=== PATIENT | female | born 1945 | race Caucasian/White ===

== ENCOUNTER → 2016-10-25 | Outpatient (CLI) | payer MEDICARE ==
--- NOTE | 2016-10-26 11:24 | PE ---
EXAMINATION TYPE: PET CT fusion skull to thigh DATE OF EXAM: 10/25/2016 COMPARISON: NONE Prior PET/CT: None HISTORY: Lung mass TECHNIQUE: Following the intravenous administration of 14.44 mCi of F-18 FDG, whole body images are performed from the skull base to the midthigh. Images are reviewed on the computer in the coronal, a xial, and sagittal planes. Reconstructed rotating images are created on independent workstation and reviewed on the computer. A localization and attenuation correction CT is performed in conjunction with the PET scan. DLP: 105.54 mGycm SCAN: Initial Blood glucose: 87 mg/dL Average Mediastinum SUV: 1.74 Average Liver SUV: 2.02 FINDINGS: NECK: No abnormal uptake THORAX: The cavitary lesion with air-fluid level on the current PET CT has an SUV value of 0.9. Highe st level of uptake appears to be at the inferior margin of the lesion measuring 1.2. Inflammatory cav itation is favored within the differential. Low metabolic neoplastic process is considered less likel y. No suspicious mediastinal uptake is evident ABDOMEN: No abnormal uptake PELVIS: No abnormal uptake OSSEOUS STRUCTURES: No abnormal uptake LOCALIZATION CT: Cavitary lesion within the left perihilar region is evident. The ascending thoracic aorta at the level the main pulmonary artery is 2.8 cm. The main pulmonary artery bifurcation 2.4 cm. COMPARISON: None IMPRESSION: 1. Cavitary lesion left perihilar region has a maximum SUV value 1.84 more suggestive for an inflamma tory or infectious process. Treatment and monitoring is recommended.
== END | disposition home or self-care (01) ==
LOC: RADPETMAIN 10:38
PROVIDERS: ATTEND Internal Medicine Critical Care Medicine
DX: R91.1 Solitary pulmonary nodule (principal)
CPT/HCPCS: 78815; A9552

== ENCOUNTER → 2017-06-27 | Outpatient (CLI) | payer MEDICARE ==
--- NOTE | 2017-06-29 09:00 | PE ---
EXAMINATION TYPE: PET CT fusion skull to thigh DATE OF EXAM: 06/27/2017 COMPARISON: Prior PET/CT October 25, 2016 HISTORY: Solitary pulmonary nodule TECHNIQUE: Following the intravenous administration of 11.814 mCi of F-18 FDG, whole body images are performed from the skull base to the midthigh. Images are reviewed on the computer in the coronal, axial, and sagittal planes. Reconstructed rotating images are created on independent workstation and reviewed on the computer. A noncontrast CT is performed in conjunction with the PET scan. SCAN: Initial Scan FINDINGS: SKULL BASE AND NECK: No suspicious hypermetabolic uptake is present. CHEST, MEDIASTINUM, AND HILAR REGION: Corresponding to prior cavitary lesion there is now heterogeneo us hypermetabolic lesion that is posterior hyperdensity and more diffuse hypodensity measuring 2.2 x 1.7 cm axial image 69, max SUV is 3.2 on current study. Overall lesion is slightly smaller versus mckenna or. ABDOMEN AND PELVIS: No suspicious hypermetabolic uptake. Diffuse uptake throughout the bowel and blad marco a is present. OSSEOUS STRUCTURES: No suspicious hypermetabolic uptake. OTHER CT: Cholecystectomy clips are redemonstrated. There are additional clips and sutures in the rig ht abdomen redemonstrated. Uterus is surgically absent or markedly atrophic in appearance. Scattered pelvic phleboliths are seen . There is some facet arthropathy lower lumbar levels. IMPRESSION: Cavitary lesion is diminished in size but is now more solid density with increased hyperm etabolic uptake, max SUV is 3.2. Neoplasm at this level does cannot be excluded. Consider bronchoscop y with sampling.
== END | disposition home or self-care (01) ==
LOC: RADPETMAIN 12:28
PROVIDERS: ATTEND Thoracic Surgery (Cardiothoracic Vascular Surgery)
DX: R91.1 Solitary pulmonary nodule (principal)
CPT/HCPCS: 78815; A9552

== ENCOUNTER → 2017-07-03 | Outpatient (CLI) | payer MEDICARE ==
[2017-07-03 12:57] LABS: Appearance,Urine Clear (Clear); Bilirubin,Urine Negative (Negative); Blood,Urine Negative (Negative); Color,Urine Light Yellow; Glucose,Urine (UA) Negative (Negative); Ketones,Urine Negative (Negative); Leukocyte Esterase,Urine Negative (Negative); Nitrite,Urine Negative (Negative); PH, Urine 5.5 (5.0-8.0); Protein,Urine Negative (Negative); Specific Gravity,Urine 1.004 (1.001-1.035); Urobilinogen,Urine <2.0 mg/dL (<2.0)
[2017-07-03 12:58] LABS: Basophils # (A) 0.1 k/uL (0-0.2); Basophils % (A) 1 %; Eosinophils # (A) 0.2 k/uL (0-0.7); Eosinophils % (A) 3 %; HCT 39.6 % (34.0-46.0); HGB 13.2 gm/dL (11.4-16.0); Lymphocytes % (A) 27 %; MCH 30.4 pg (25.0-35.0); MCHC 33.2 g/dL (31.0-37.0); MCV 91.6 fL (80.0-100.0); Mean Platelet Volume 6.7; Monocytes # (A) 0.3 k/uL (0-1.0); Monocytes % (A) 4 %; Neutrophils # (A) 4.6 k/uL (1.3-7.7); Neutrophils % (A) 63 %; Platelet Count 277 k/uL (150-450); RBC 4.32 m/uL (3.80-5.40); WBC 7.3 k/uL (3.8-10.6)
[2017-07-03 13:24] LABS: Anion Gap 11 mmol/L; Blood Urea Nitrogen 17 mg/dL (7-17); Carbon Dioxide 30 mmol/L (22-30); Chloride 100 mmol/L (98-107); Potassium 3.5 mmol/L (3.5-5.1); Sodium 141 mmol/L (137-145)
== END | disposition home or self-care (01) ==
LOC: LABPAT 12:10
PROVIDERS: ATTEND Thoracic Surgery (Cardiothoracic Vascular Surgery)
DX: Z01.812 Encounter for preprocedural laboratory examination (principal); R91.1 Solitary pulmonary nodule
CPT/HCPCS: 36415; 80051; 81003; 82565; 84520; 85025; 86850; 86900; 86901

== ENCOUNTER → 2017-07-08 | Outpatient (CLI) | payer MEDICARE | END | disposition home or self-care (01) | LOC: LABPAT 11:04 | PROVIDERS: ATTEND Thoracic Surgery (Cardiothoracic Vascular Surgery) | DX: Z01.818 Encounter for other preprocedural examination (principal); I10 Essential (primary) hypertension; R94.31 Abnormal electrocardiogram [ECG] [EKG]; I49.8 Other specified cardiac arrhythmias | CPT/HCPCS: 93005 ==

== ENCOUNTER 2017-08-04 06:53 | Emergency (ER) | payer MEDICARE ==
[2017-08-04 06:59] VITALS: TEMP 98.9
[2017-08-04] MEDS ORDERED: DIPH,PERTUS(ACELL)TETVAC-LF 0.5 ML VIAL IM ONE (07:12)
[2017-08-04] MEDS ORDERED: MORPHINE SULFATE/PF 10MG/10ML VL ONE (07:21)
--- NOTE | 2017-08-04 07:32 | ED ---
General Adult HPI - General Chief complaint: Fall Stated complaint: Fall, Head injury Time Seen by Provider: 08/04/17 07:02 Source: patient, EMS, RN notes reviewed, old records reviewed Mode of arrival: EMS Limitations: no limitations - History of Present Illness Initial comments: 71-year-old female presenting status post fall. [facility]. She states she was coming from the bathroom, reached out to lean onto a wheelchair in the wheelchair was not LOC. She fell striking the right side of her head. There was no loss of consciousness. Patient does complain of headache at the site of injury. She is currently on subcutaneous heparin for DVT prophylaxis. Past medical history of end-stage renal disease, and recent lobectomy. Patient denies neck pain. Denies chest pain. Denies worsening dyspnea or abdominal pain. She does have some pain in her left buttock. No upper or lower extremity pain. - Related Data Home Medications Medication Instructions Recorded Confirmed Amitriptyline HCl [Elavil] 25 mg PO HS@209908/04/17 08/04/17 Darbepoetin Javy [Aranesp] 40 mcg SQ TU@0800 08/04/17 08/04/17 Gabapentin [Neurontin] 300 mg PO TID@0600,1400,209908/04/17 08/04/17 Heparin Sodium,Porcine [Heparin 5,000 unit SQ TID@0600,1400,209908/04/17 Sodium] Ipratropium-Albuterol Nebulize 3 ml IH RT-Q1H PRN 08/04/17 08/04/17 [Duoneb 0.5 mg-3 mg/3 ml Soln] Lactose-Reduced Food [Ensure Plus] 1 can PO TID-W/MEALS 08/04/17 08/04/17 Magnesium Hydroxide [Milk of 2,400 mg PO DAILY PRN 08/04/17 08/04/17 Magnesia] Metoprolol Tartrate [Lopressor] 12.5 mg PO BID@0800,2100 08/04/17 08/04/17 Na Phos,M-B/Na Phos,Di-Ba [Fleet 133 ml RECTAL DAILY PRN 08/04/17 08/04/17 Adult] Nystatin 100,000 Unit/ml Susp 5 ml PO QID@00,06,,18 08/04/17 08/04/17 [Mycostatin Oral Susp] Ondansetron [Zofran] 4 mg PO Q8HR PRN 08/04/17 08/04/17 Potassium Chloride [Klor-Con 20] 40 meq PO ONCE 08/04/17 08/04/17 traMADol HCL [Ultram] 50 mg PO BID@0800,2100 08/04/17 08/04/17 Previous Rx's Medication Instructions Recorded ALPRAZolam [Xanax] 0.25 mg PO DAILY PRN #30 tab 07/31/17 Bisacodyl [Dulcolax] 10 mg RECTAL DAILY PRN supp 07/31/17 Ergocalciferol [Vitamin D2 50,000 unit PO Q72H cap 07/31/17 (DRISDOL)] Ipratropium-Albuterol Nebulize 3 ml INHALATION RT-QID ampul.neb 07/31/17 [Duoneb 0.5 mg-3 mg/3 ml Soln] Pantoprazole [Protonix] 40 mg PO AC-BID tablet. 07/31/17 Allergies Allergy/AdvReac Type Severity Reaction Status Date / Time acetaminophen [From Tylenol] AdvReac can't take Verified 08/04/17 07:41 tylenol due to history pregabalin [From Lyrica] AdvReac Unknown Verified 08/04/17 07:41 Review of Systems ROS Statement: Those systems with pertinent positive or pertinent negative responses have been documented in the HPI. ROS Other: All systems not noted in ROS Statement are negative. Past Medical History Past Medical History: COPD, Fibromyalgia, GERD/Reflux, Hypertension, Osteoarthritis (OA), Renal Disease Additional Past Medical History / Comment(s): past hx. liver failure 2006 probably due to viral infection, was living in [facility] @the time-no current problems,neuropathy, osteoporosis, Crohn's, mass lung History of Any Multi-Drug Resistant Organisms: None Reported Past Surgical History: Bowel Resection, Cholecystectomy, Hysterectomy, Orthopedic Surgery Additional Past Surgical History / Comment(s): lymph node removed left side neck , bowel resection x3, left rotator cuff repair Past Anesthesia/Blood Transfusion Reactions: No Reported Reaction Past Psychological History: No Psychological Hx Reported Smoking Status: Former smoker Past Alcohol Use History: None Reported Past Drug Use History: None Reported - Past Family History Brother(s) Family Medical History: Cancer General Exam Limitations: no limitations General appearance: alert, in no apparent distress Head exam: Present: normocephalic. Absent: atraumatic (3 cm laceration, right frontal temporal region, full-thickness with minimal bleeding, no palpable skull deformity) Eye exam: Present: normal appearance, PERRL, EOMI Neck exam: Present: normal inspection, full ROM. Absent: tenderness, meningismus Respiratory exam: Present: normal lung sounds bilaterally, rales. Absent: respiratory distress, wheezes Cardiovascular Exam: Present: regular rate, normal rhythm GI/Abdominal exam: Present: soft. Absent: distended, tenderness Extremities exam: Present: normal inspection, normal capillary refill. Absent: pedal edema Back exam: Present: other (Several sacral decubitus ulcer in various stages feeling, stage stage I, and stage II) Neurological exam: Present: alert, oriented X3, CN II-XII intact. Absent: motor sensory deficit Psychiatric exam: Present: normal affect, normal mood Skin exam: Present: warm, dry, intact. Absent: cyanosis, diaphoretic Course Vital Signs 08/04/17 08/04/17 06:54 08:04 Temperature 98.9 F Pulse Rate 83 66 Respiratory 16 18 Rate Blood Pressure 150/72 140/63 O2 Sat by Pulse 95 93 L Oximetry Procedures - Laceration Laceration #1 Consent Obtained: verbal consent Time Out Performed: Yes Indication: laceration Site: scalp Description: linear, clean Depth: simple, single layer Pre-repair: wound explored, deep structures intact Size of Sutures: other (6 william) Technique: simple, interrupted Patient Tolerated Procedure: well Medical Decision Making - Medical Decision Making 71-year-old female presenting status post mechanical fall with right temporal scalp laceration. This laceration is proximally 3 cm, it is cleansed, and stapled with 6 william. Patient tolerates procedure well. CT is obtained, negative for intracranial hemorrhage or midline shift. CT cervical spine is negative for fracture or subluxation. Patient did have some left buttock pain and x-rays obtained of the pelvis, this is negative for fracture or dislocation. Patient has no pain with internal or external rotation of the lower extremities. She will be [facility] to [facility]. Return with any worsening or changing symptoms. Tetanus is updated. Disposition Clinical Impression: Fall, Scalp laceration, Closed head injury Disposition: HOME SELF-CARE Condition: Fair Instructions: Laceration (ED), Concussion (ED), Staple Care (ED) Referrals: Sandra Winkler MD [Primary Care Provider] - 1-2 days Time of Disposition: 08:26
[2017-08-04] MEDS ORDERED: MORPHINE SULFATE/PF 10MG/10ML VL IM STA (07:45)
--- NOTE | 2017-08-04 08:04 | CT ---
EXAMINATION TYPE: CT brain cspine wo con DATE OF EXAM: 08/04/2017 COMPARISON: 07/18/2017 HISTORY: Fall CT DLP: Brain (926.50) and C-spine (302.50) mGycm Unenhanced CT of the brain was performed. The ventricles, basal cisterns and sulci overlying the cerebral convexities demonstrate mild enlargem ent. There is no evidence for intracranial hemorrhage or sulcal effacement. There is decreased attenuatio n about the periventricular white matter and deep white matter of both cerebral hemispheres, compatib le with chronic small vessel ischemia. No mass effects are seen. If symptoms persist consider MRI. Osseous calvarium is intact. IMPRESSION: 1. Age related atrophic and chronic small vessel ischemic change without acute intracranial process seen at this time. CT Cervical Spine: Unenhanced CT of the cervical spine was performed with bone and soft tissue window settings submitted . Coronal and sagittal reconstruction is obtained. There is normal alignment and prevertebral soft tissues. No evidence for acute cervical fracture . Scattered degenerative disc disease and spondylosis. Biapical scarring. IMPRESSION: 1. No evidence for acute fracture or subluxation of the cervical spine.
[2017-08-04 08:05] VITALS: RESP 18
--- NOTE | 2017-08-04 08:40 | XR ---
AP pelvis HISTORY: Trauma and pain Single frontal view of the pelvis Abdomen pelvis CT 07/11/2017 Bone mineralization is reduced. Joint spaces and alignment are maintained. Calcific density superimpo sed over the right femoral head is likely due to injection granuloma in the gluteal region. Surgical clips are present in the right hemiabdomen. Degenerative disc changes are present at the lumbosacral junction. There are phleboliths in the pelvis. IMPRESSION: No acute fracture or dislocation.
[2017-08-04 09:54] VITALS: BP 120/58; PULSE 88
== END 2017-08-04 09:52 | disposition home or self-care (01) ==
LOC: EC 06:53
DX: S01.01XA Laceration without foreign body of scalp, initial encounter (principal); M79.7 Fibromyalgia; I12.0 Hypertensive chronic kidney disease with stage 5 chronic kidney disease or end stage renal disease; N18.6 End stage renal disease; M19.90 Unspecified osteoarthritis, unspecified site; Z86.718 Personal history of other venous thrombosis and embolism; Z87.891 Personal history of nicotine dependence; Z79.01 Long term (current) use of anticoagulants; Z79.899 Other long term (current) drug therapy; Z88.6 Allergy status to analgesic agent; Z88.8 Allergy status to other drugs, medicaments and biological substances; Z23 Encounter for immunization; W01.198A Fall on same level from slipping, tripping and stumbling with subsequent striking against other object, initial encounter; Y92.129 Unspecified place in nursing home as the place of occurrence of the external cause
CPT/HCPCS: 72170; 72125; 70450; 90715; 99285; 12002; 96372; 90471; J2270

== ENCOUNTER 2017-08-12 08:51 | Inpatient (IN) | payer MEDICARE ==
[2017-08-12] MEDS ORDERED: SODIUM CHLORIDE 0.9% 1,000 ML IV STA (09:03)
[2017-08-12] MEDS ORDERED: methylPREDNISolone SOD SUCCI 125 MG/2 ML VIAL IV STA (09:03)
[2017-08-12] MEDS ORDERED: ALBUTEROL NEBULIZED 2.5 MG/3 ML INHALATION STA (09:03)
[2017-08-12] MEDS ORDERED: IPRATROPIUM 0.5 MG/2.5 ML NEBU INHALATION STA (09:03)
[2017-08-12] MEDS ORDERED: PIPERACILLIN-TAZOBACTAM 3.375 GM in DEXTROSE/WATER 1 50ML.BAG IVPB STA (09:03)
[2017-08-12 09:33] LABS: Basophils % (A) 1 %; Eosinophils # (A) 0.2 k/uL (0-0.7); Eosinophils % (A) 4 %; HCT 27.3 % (34.0-46.0); HGB 8.2 gm/dL (11.4-16.0); Hypochromasia Moderate; Lymphocytes # (A) 0.9 k/uL (1.0-4.8); Lymphocytes % (A) 17 %; MCH 28.7 pg (25.0-35.0); MCHC 30.2 g/dL (31.0-37.0); MCV 94.9 fL (80.0-100.0); Mean Platelet Volume 7.1; Monocytes # (A) 0.3 k/uL (0-1.0); Monocytes % (A) 6 %; Neutrophils # (A) 3.7 k/uL (1.3-7.7); Neutrophils % (A) 69 %; Platelet Count 243 k/uL (150-450); RBC 2.87 m/uL (3.80-5.40); RDW 14.2 % (11.5-15.5); WBC 5.3 k/uL (3.8-10.6)
[2017-08-12 09:36] LABS: Albumin 2.9 g/dL (3.5-5.0); Calcium 8.5 mg/dL (8.4-10.2); Potassium 4.2 mmol/L (3.5-5.1); Total Bilirubin 0.3 mg/dL (0.2-1.3); Total Protein 5.8 g/dL (6.3-8.2)
--- NOTE | 2017-08-12 09:49 | ED ---
SOB HPI - General Chief Complaint: Shortness of Breath Stated Complaint: Chest pain Time Seen by Provider: 08/12/17 08:58 Source: patient, EMS Mode of arrival: EMS Limitations: no limitations - History of Present Illness Initial Comments: 71 [facility] comes in with a shortness of breath her O2 sat at [facility] was in mid 70s with the oxygen and been up she has a history of congestive heart failure COPD renal failure and Crohn's disease she has a history of lung mass for which she had a surgery done on her lung she denies any chest pain at this point only hurts when she takes a deep breath but then you know she had the surgery done is walk him a no abdominal pain no frequency urgency dysuria no symptoms of TIA or CVA - Related Data Home Medications Medication Instructions Recorded Confirmed Amitriptyline HCl [Elavil] 25 mg PO HS@209908/04/17 08/12/17 Darbepoetin Javy [Aranesp] 40 mcg SQ TU@0800 08/04/17 08/12/17 Gabapentin [Neurontin] 300 mg PO TID@0600,1400,209908/04/17 08/12/17 Heparin Sodium,Porcine [Heparin 5,000 unit SQ TID@0600,1400,209908/04/17 Sodium] Ipratropium-Albuterol Nebulize 3 ml IH RT-Q1H PRN 08/04/17 08/12/17 [Duoneb 0.5 mg-3 mg/3 ml Soln] Magnesium Hydroxide [Milk of 2,400 mg PO DAILY PRN 08/04/17 08/12/17 Magnesia] Metoprolol Tartrate [Lopressor] 12.5 mg PO BID@0800,209908/04/17 08/12/17 Na Phos,M-B/Na Phos,Di-Ba [Fleet 133 ml RECTAL DAILY PRN 08/04/17 08/12/17 Adult] Nystatin 100,000 Unit/ml Susp 5 ml PO QID@00,06,12,18 08/04/17 08/12/17 [Mycostatin Oral Susp] Ondansetron [Zofran] 4 mg PO Q8HR PRN 08/04/17 08/12/17 Potassium Chloride [Klor-Con 20] 40 meq PO DAILY@1700 08/04/17 08/12/17 traMADol HCL [Ultram] 50 mg PO BID@0800,2100 08/04/17 08/12/17 Lactose-Reduced Food [Ensure Plus] 1 can PO TID 08/12/17 08/12/17 Levofloxacin [Levaquin] 500 mg PO ONCE 08/12/17 08/12/17 guaiFENesin [Mucinex] 600 mg PO BID 08/12/17 08/12/17 Previous Rx's Medication Instructions Recorded ALPRAZolam [Xanax] 0.25 mg PO DAILY PRN #30 tab 07/31/17 Bisacodyl [Dulcolax] 10 mg RECTAL DAILY PRN supp 07/31/17 Ergocalciferol [Vitamin D2 50,000 unit PO Q72H cap 07/31/17 (ISDOL)] Ipratropium-Albuterol Nebulize 3 ml INHALATION RT-QID ampul.neb 07/31/17 [Duoneb 0.5 mg-3 mg/3 ml Soln] Pantoprazole [Protonix] 40 mg PO AC-BID tablet. 07/31/17 Allergies Allergy/AdvReac Type Severity Reaction Status Date / Time acetaminophen [From Tylenol] AdvReac can't take Verified 08/12/17 09:57 tylenol due to history pregabalin [From Lyrica] AdvReac Unknown Verified 08/12/17 09:57 Review of Systems ROS Statement: Those systems with pertinent positive or pertinent negative responses have been documented in the HPI. ROS Other: All systems not noted in ROS Statement are negative. Past Medical History Past Medical History: COPD, Fibromyalgia, GERD/Reflux, Hypertension, Osteoarthritis (OA), Renal Disease Additional Past Medical History / Comment(s): past hx. liver failure 2006 probably due to viral infection, was living in [place] @the time-no current problems,neuropathy, osteoporosis, Crohn's, mass lung History of Any Multi-Drug Resistant Organisms: None Reported Past Surgical History: Bowel Resection, Cholecystectomy, Hysterectomy, Orthopedic Surgery Additional Past Surgical History / Comment(s): lymph node removed left side neck , bowel resection x3, left rotator cuff repair Past Anesthesia/Blood Transfusion Reactions: No Reported Reaction Past Psychological History: No Psychological Hx Reported Smoking Status: Former smoker Past Alcohol Use History: None Reported Past Drug Use History: None Reported - Past Family History Brother(s) Family Medical History: Cancer General Exam - General Exam Comments Initial Comments: General: The patient is awake and moderate distress secondary to shortness of breath, GCS is 15 Skin: Skin is warm and dry and no rashes or lesions are noted. Eye: Pupils are equal, round and reactive to light, extra-ocular movements are intact; there is normal conjunctiva bilaterally. Ears, nose, mouth and throat: There are moist mucous membranes and no oral lesions. Neck: The neck is supple, there is no tenderness Cardiovascular: There is a regular rate and rhythm. No murmur, rub or gallop is appreciated. Respiratory: To auscultation bilateral, very poor air exchange, noticed some crackles at the lateral Gastrointestinal: Soft, non-distended, non-tender abdomen without masses or organomegaly noted. There is no rebound or guarding present. Bowel sounds are unremarkable. Back: There is no tenderness to palpation in the midline. There is no obvious deformity. Musculoskeletal: Normal ROM, no tenderness, There is no pedal edema. There is no calf tenderness or swelling. No cords were appreciated. Neurological: CN II-XII intact, Cranial nerves III through XII are intact. There are no obvious motor or sensory deficits. Coordination appears grossly intact. Speech is normal. Psychiatric: Cooperative, appropriate mood & affect, normal judgment. Limitations: no limitations Course Vital Signs 08/12/17 08/12/17 08/12/17 08:54 09:19 09:41 Temperature 98.0 F Pulse Rate 85 83 89 Respiratory 20 Rate Blood Pressure 110/55 O2 Sat by Pulse Oximetry 08/12/17 10:11 Temperature Pulse Rate 92 Respiratory 20 Rate Blood Pressure 108/51 O2 Sat by Pulse 97 Oximetry EKG is normal sinus rhythm ventricular rate is 85 AR interval is 136 QRS duration is 74 QT/QTC 356/423 and aVF this EKG reveals T-wave inversion in lead 3, no ST elevation or ST depression noticed any other leads Medical Decision Making - Lab Data Result diagrams: 08/12/17 09:06 08/12/17 09:06 Lab Results 08/12/17 08/12/17 08/12/17 Range/Units 09:06 09:06 09:06 WBC 5.3 (3.8-10.6) k/uL RBC 2.87 L (3.80-5.40) m/uL Hgb 8.2 L (11.4-16.0) gm/dL Hct 27.3 L (34.0-46.0) % MCV 94.9 (80.0-100.0) fL MCH 28.7 (25.0-35.0) pg MCHC 30.2 L (31.0-37.0) g/dL RDW 14.2 (11.5-15.5) % Plt Count 243 (150-450) k/uL Neutrophils % 69 % Lymphocytes % 17 % Monocytes % 6 % Eosinophils % 4 % Basophils % 1 % Neutrophils # 3.7 (1.3-7.7) k/uL Lymphocytes # 0.9 L (1.0-4.8) k/uL Monocytes # 0.3 (0-1.0) k/uL Eosinophils # 0.2 (0-0.7) k/uL Basophils # 0.0 (0-0.2) k/uL Hypochromasia Moderate PT (9.0-12.0) sec INR (<1.2) APTT (22.0-30.0) sec D-Dimer (<0.60) mg/L FEU VBG pH (7.31-7.41) VBG pCO2 (37-51) mmHg VBG HCO3 (24-28) mmol/L Sodium 142 (137-145) mmol/L Potassium 4.2 (3.5-5.1) mmol/L Chloride 101 (98-107) mmol/L Carbon Dioxide 30 (22-30) mmol/L Anion Gap 11 mmol/L BUN 5 L (7-17) mg/dL Creatinine 1.50 H (0.52-1.04) mg/dL Est GFR (CKD-EPI)AfAm 40 (>60 ml/min/1.73 sqM) Est GFR (CKD-EPI)NonAf 34 (>60 ml/min/1.73 sqM) Glucose 92 (74-99) mg/dL Calcium 8.5 (8.4-10.2) mg/dL Total Bilirubin 0.3 (0.2-1.3) mg/dL AST 9 L (14-36) U/L ALT 31 (9-52) U/L Alkaline Phosphatase 67 (38-126) U/L Total Creatine Kinase 41 (30-135) U/L CK-MB (CK-2) 3.0 H* (0.0-2.4) ng/mL CK-MB (CK-2) Rel Index 7.3 Troponin I 0.032 (0.000-0.034) ng/mL Total Protein 5.8 L (6.3-8.2) g/dL Albumin 2.9 L (3.5-5.0) g/dL 08/12/17 08/12/17 Range/Units 09:06 09:33 WBC (3.8-10.6) k/uL RBC (3.80-5.40) m/uL Hgb (11.4-16.0) gm/dL Hct (34.0-46.0) % MCV (80.0-100.0) fL MCH (25.0-35.0) pg MCHC (31.0-37.0) g/dL RDW (11.5-15.5) % Plt Count (150-450) k/uL Neutrophils % % Lymphocytes % % Monocytes % % Eosinophils % % Basophils % % Neutrophils # (1.3-7.7) k/uL Lymphocytes # (1.0-4.8) k/uL Monocytes # (0-1.0) k/uL Eosinophils # (0-0.7) k/uL Basophils # (0-0.2) k/uL Hypochromasia PT 12.1 H (9.0-12.0) sec INR 1.3 H (<1.2) APTT 35.7 H (22.0-30.0) sec D-Dimer 1.89 H (<0.60) mg/L FEU VBG pH 7.42 H (7.31-7.41) VBG pCO2 48 (37-51) mmHg VBG HCO3 30 H (24-28) mmol/L Sodium (137-145) mmol/L Potassium (3.5-5.1) mmol/L Chloride (98-107) mmol/L Carbon Dioxide (22-30) mmol/L Anion Gap mmol/L BUN (7-17) mg/dL Creatinine (0.52-1.04) mg/dL Est GFR (CKD-EPI)AfAm (>60 ml/min/1.73 sqM) Est GFR (CKD-EPI)NonAf (>60 ml/min/1.73 sqM) Glucose (74-99) mg/dL Calcium (8.4-10.2) mg/dL Total Bilirubin (0.2-1.3) mg/dL AST (14-36) U/L ALT (9-52) U/L Alkaline Phosphatase (38-126) U/L Total Creatine Kinase (30-135) U/L CK-MB (CK-2) (0.0-2.4) ng/mL CK-MB (CK-2) Rel Index Troponin I (0.000-0.034) ng/mL Total Protein (6.3-8.2) g/dL Albumin (3.5-5.0) g/dL Critical Care Time Total Critical Care Time: 45 Critical Care Time: In with hypoxia neb treatments were given Y with many L albuterol and Atrovent and Solu-Medrol that helped her own shortness of breath then she can Barley chest pain EKG she had a 1 on arrival we repeated the EKG chest pain was on the left side second EKG showed some T-wave inversions in now lead 3 V3 and V4 and this was not present on the first EKG second EKG is normal sinus rhythm ventricular rate is 84 AR interval is 134 QRS duration is 72 QT/QTc is 386/456 noticed T-wave inversion in lead 3-lead 33 and V4 these 2 T-wave inversions are new comparing to when she came in and that d-dimer is quite elevated considering renal failure she's not a candidate for CT chest angiogram is current current to the VQ scan and on the require and heparinize based on her chest pain and the new EKG changes she be admitted she'll be seeing Dr. shlomo lorenzo in and now she will also see cardiology and she be admitted under Dr. Kapadia service Disposition Clinical Impression: Hypoxia, Pneumonia, Chest pain, Elevated d-dimer Disposition: ADMITTED IP TO THIS HOSP Condition: Good Referrals: Kp Clark DO [Primary Care Provider] - 1-2 days
[2017-08-12 09:56] LABS: VBG PH 7.42 (7.31-7.41)
--- NOTE | 2017-08-12 10:02 | XR ---
EXAMINATION TYPE: XR chest 1V portable DATE OF EXAM: 08/12/2017 Comparison: 07/28/2017 Clinical History: 71-year-old female Pain Findings: Left heart margin obscured by adjacent pleural-parenchymal disease. Right-sided double-lumen hemodial ysis catheter with tips at the cavoatrial junction/upper right atrium. Moderate left pleural effusion persists. Impression: Continued moderate left pleural effusion with adjacent atelectasis and or consolidation.
[2017-08-12 10:04] LABS: D-Dimer 1.89 mg/L FEU (<0.60); INR 1.3 (<1.2); Partial Thromboplastin Time 35.7 sec (22.0-30.0); Prothrombin Time 12.1 sec (9.0-12.0)
[2017-08-12 10:07] LABS: Troponin I 0.032 ng/mL (0.000-0.034)
[2017-08-12] MEDS ORDERED: LORazepam 2 MG/ML INJ IV STA (10:10)
[2017-08-12] MEDS ORDERED: HEPARIN SODIUM,PORCINE 5,000 UNIT/ML 1 ML VIAL IV ONE (10:25)
[2017-08-12] MEDS ORDERED: NITROGLYCERIN SL TABS 0.4 MG TAB SUBLINGUAL PRN (10:31)
--- NOTE | 2017-08-12 10:31 | XR ---
EXAMINATION TYPE: XR chest 1V portable DATE OF EXAM: 08/12/2017 COMPARISON: 08/12/2017 earlier exam INDICATION: Apnea TECHNIQUE: Single frontal view of the chest is obtained. FINDINGS: The heart size is indistinct. The pulmonary vasculature is normal. There is a moderate size left pleural effusion Findings appear stable. There is a double-lumen catheter on the right with the tip in the region of the proximal right atrium . This is unchanged in position. EKG leads overlie the chest. IMPRESSION: 1. Moderate left pleural effusion. 2. No significant change.
[2017-08-12] MEDS ORDERED: MAGNESIUM HYDROXIDE 2,400 MG/10 ML CUP PO PRN (10:35)
[2017-08-12] MEDS ORDERED: NA PHOS,M-B/NA PHOS,DI-BA 133 ML ENEMA RECTAL PRN (10:35)
[2017-08-12] MEDS ORDERED: BISACODYL 10 MG SUPP RECTAL PRN (10:35)
[2017-08-12] MEDS ORDERED: IPRATROPIUM-ALBUTEROL 3 ML NEB IH PRN (10:35)
[2017-08-12] MEDS: HEPARIN SOD,PORK IN 0.45% NACL 25,000 UNIT in 0.45% NACL 1 500ML.BAG IV SCH (11:11)
[2017-08-12] MEDS: IPRATROPIUM-ALBUTEROL 3 ML NEB INHALATION SCH ×4 (11:18→22:09)
--- NOTE | 2017-08-12 12:29 | US ---
EXAMINATION TYPE: US venous doppler duplex LE BI DATE OF EXAM: 08/12/2017 12:11 PM COMPARISON: NONE CLINICAL HISTORY: Rule out DVT. SIDE PERFORMED: Bilateral TECHNIQUE: The lower extremity deep venous system is examined utilizing real time linear array sonog antonio with graded compression, doppler sonography and color-flow sonography. VESSELS IMAGED: External Iliac Vein (EIV) Common Femoral Vein Deep Femoral Vein Greater Saphenous Vein * Femoral Vein Popliteal Vein Small Saphenous Vein * Proximal Calf Veins (* superficial vessels) Patient had difficult time cooperating with examiner, more so on the left. Right Leg: Negative for DVT Left Leg: Negative for DVT IMPRESSION: 1. Bilateral lower extremities negative for deep venous thrombosis by ultrasound.
--- NOTE | 2017-08-12 13:44 | US ---
EXAMINATION TYPE: US chest DATE OF EXAM: 08/12/2017 COMPARISON: NONE CLINICAL HISTORY: Markings for thoracentesis by pulmonary staff. EXAM MEASUREMENTS: Right Pleural Effusion fluid pocket: 5.8 cm Right skin to fluid thickness: 2.0 cm Left Pleural Effusion fluid pocket: 5.7 cm Left skin to fluid thickness: 2.6 cm Right side was marked for possible thoracentesis outside the dept. Left side was marked for possible thoracentesis outside the dept. Pulmonologists are able to review the images in the patient?s EMR. IMPRESSIONS: 1. Bilateral pleural effusions
[2017-08-12 15:15] LABS: HGB 7.1 gm/dL (11.4-16.0); Hypochromasia Marked; MCH 28.8 pg (25.0-35.0); MCHC 29.6 g/dL (31.0-37.0); MCV 97.3 fL (80.0-100.0); Platelet Count 220 k/uL (150-450); RBC 2.46 m/uL (3.80-5.40); RDW 14.2 % (11.5-15.5); WBC 4.1 k/uL (3.8-10.6)
--- NOTE | 2017-08-12 15:15 | P.CRDCN ---
History of Present Illness Consult date: 08/12/17 Requesting physician: Husam Tafoya Consult reason: chest pain Chief complaint: Chest pain History of present illness: This is a 71-year-old female with history of Crohn's disease, anemia, thrombocytopenia, acute on chronic kidney injury undergoing dialysis, who had a cavitating left upper lobe mass for which the patient underwent left resection and lobectomy. She was discharged to [facility], history was obtained actually from the who is at bedside. She apparently developed chest pain this morning, and was found to be hypotensive, mild shortness of breath, for this reason she was brought to the hospital for further evaluation. EKG on arrival here showed a normal sinus rhythm with nonspecific ST-T wave changes in the inferior and anterior leads. Repeat EKG shows normal sinus rhythm with continued changes in the inferior leads. Chest x-ray shows moderate left-sided pleural effusion with adjacent atelectasis and/or consolidation. Repeat chest x -ray shows moderate left pleural effusion. Ultrasound of the chest, right side was marked for possible thoracentesis, left side was also marked. Right side shows a pleural effusion of 5.8 cm left side 5.7 cm. Blood pressure 110/60 with a heart rate in the 80s, 98% on 6 L of oxygen. White blood cell count 5.3 , hemoglobin 8.2, platelet count 243. D-dimer 1.89. Sodium 142, potassium 4.2 , BUN 5, creatinine 1.5. Troponin 0.032. Past Medical History Past Medical History: Heart Failure, COPD, Fibromyalgia, GERD/Reflux, Hypertension, Osteoarthritis (OA), Pneumonia, Renal Disease Additional Past Medical History / Comment(s): 09/2016 L lung cavitary lesion then 05/2017 lesion solidification/spiculation, pt had robot assisted L upper lobectomy with lymph node dissection and on post op day 2 had respiratory acidosis, hypoxia, acute lactic acidosis, htn and shocked liver-was intubated and vented and had temporary then permanent dialysis catheter placed. Other hx : Renal failure-now on hemodialysis es//Sat with last dialysis done , chron's dx, currently tx for thrush-painful swallowing, osteoporosis, 2007 liver failure d/t virus. History of Any Multi-Drug Resistant Organisms: None Reported Past Surgical History: Bowel Resection, Cholecystectomy, Hysterectomy, Orthopedic Surgery Additional Past Surgical History / Comment(s): 07/27/17 Robot assisted L upper lobectomy with lymph node dissection, temporary hemodialysis cath R femoral, permanent hemodialysis cath RIJ, bowel resections x 3 d/t chron's, L side of neck lymph node removal, L rotator cuff repair. Past Anesthesia/Blood Transfusion Reactions: No Reported Reaction, Motion Sickness Smoking Status: Former smoker - Past Family History Brother(s) Family Medical History: Cancer Father Family Medical History: Myocardial Infarction ([place]) Additional Family Medical History / Comment(s): Father of a [place] while in his 60s. Mother Family Medical History: No Reported History Additional Family Medical History / Comment(s): Mother is living and is 98yrs old. Medications and Allergies Home Medications Medication Instructions Recorded Confirmed Type ALPRAZolam [Xanax] 0.25 mg PO DAILY PRN #30 tab 07/31/17 08/12/17 Rx Bisacodyl [Dulcolax] 10 mg RECTAL DAILY PRN supp 07/31/17 08/12/17 Rx Ergocalciferol [Vitamin D2 50,000 unit PO Q72H cap 07/31/17 08/12/17 Rx (DRISDOL)] Ipratropium-Albuterol Nebulize 3 ml INHALATION RT-QID ampul.neb 07/31/17 Rx [Duoneb 0.5 mg-3 mg/3 ml Soln] Pantoprazole [Protonix] 40 mg PO AC-BID tablet. 07/31/17 08/12/17 Rx Amitriptyline HCl [Elavil] 25 mg PO HS@2100 08/04/17 08/12/17 History Darbepoetin Javy [Aranesp] 40 mcg SQ TU@0800 08/04/17 08/12/17 History Gabapentin [Neurontin] 300 mg PO TID@0600,1400,209908/04/17 08/12/17 History Heparin Sodium,Porcine [Heparin 5,000 unit SQ TID@0600,1400,2100 08/04/17 History Sodium] Ipratropium-Albuterol Nebulize 3 ml IH RT-Q1H PRN 08/04/17 08/12/17 History [Duoneb 0.5 mg-3 mg/3 ml Soln] Magnesium Hydroxide [Milk of 2,400 mg PO DAILY PRN 08/04/17 08/12/17 History Magnesia] Metoprolol Tartrate [Lopressor] 12.5 mg PO BID@0800,2100 08/04/17 08/12/17 History Na Phos,M-B/Na Phos,Di-Ba [Fleet 133 ml RECTAL DAILY PRN 08/04/17 08/12/17 History Adult] Nystatin 100,000 Unit/ml Susp 5 ml PO QID@00,06,,18 08/04/17 08/12/17 History [Mycostatin Oral Susp] Ondansetron [Zofran] 4 mg PO Q8HR PRN 08/04/17 08/12/17 History Potassium Chloride [Klor-Con 20] 40 meq PO DAILY@1700 08/04/17 08/12/17 History traMADol HCL [Ultram] 50 mg PO BID@0800,2100 08/04/17 08/12/17 History Lactose-Reduced Food [Ensure Plus] 1 can PO TID 08/12/17 08/12/17 History Levofloxacin [Levaquin] 500 mg PO ONCE 08/12/17 08/12/17 History guaiFENesin [Mucinex] 600 mg PO BID 08/12/17 08/12/17 History Allergies Allergy/AdvReac Type Severity Reaction Status Date / Time acetaminophen [From Tylenol] AdvReac can't take Verified 08/12/17 09:57 tylenol due to history pregabalin [From Lyrica] AdvReac Unknown Verified 08/12/17 09:57 Physical Exam Vitals: Vital Signs Temp Pulse Resp BP Pulse Ox 08/12/17 13:31 87 16 111/61 98 08/12/17 12:15 83 18 105/67 100 08/12/17 10:11 92 20 108/51 97 08/12/17 09:41 89 08/12/17 09:19 83 08/12/17 08:54 98.0 F 85 20 110/55 Intake and Output 08/11/17 08/12/17 08/12/17 22:59 06:59 14:59 Other: Weight 45.359 kg PHYSICAL EXAMINATION: HEENT: Head is atraumatic, normocephalic. Pupils equal, round. Neck is supple. There is no elevated jugular venous pressure. HEART EXAMINATION: Heart S1, S2 normal. No murmur or gallop heard. CHEST EXAMINATION: Lungs reveal diminished breath sounds to bilateral bases. ABDOMEN: Soft, nontender. Bowel sounds are heard. No organomegaly noted. EXTREMITIES: 2+ peripheral pulses with no evidence of peripheral edema and no calf tenderness noted. NEUROLOGIC [patient is very sleepy. Results 08/12/17 09:06 08/12/17 09:06 Cardiac Enzymes 08/12/17 08/12/17 Range/Units 09:06 09:06 AST 9 L (14-36) U/L CK-MB (CK-2) 3.0 H* (0.0-2.4) ng/mL Troponin I 0.032 (0.000-0.034) ng/mL Coagulation 08/12/17 Range/Units 09:06 PT 12.1 H (9.0-12.0) sec APTT 35.7 H (22.0-30.0) sec CBC 08/12/17 Range/Units 09:06 WBC 5.3 (3.8-10.6) k/uL RBC 2.87 L (3.80-5.40) m/uL Hgb 8.2 L (11.4-16.0) gm/dL Hct 27.3 L (34.0-46.0) % Plt Count 243 (150-450) k/uL Comprehensive Metabolic Panel 08/12/17 Range/Units 09:06 Sodium 142 (137-145) mmol/L Potassium 4.2 (3.5-5.1) mmol/L Chloride 101 (98-107) mmol/L Carbon Dioxide 30 (22-30) mmol/L BUN 5 L (7-17) mg/dL Creatinine 1.50 H (0.52-1.04) mg/dL Glucose 92 (74-99) mg/dL Calcium 8.5 (8.4-10.2) mg/dL AST 9 L (14-36) U/L ALT 31 (9-52) U/L Alkaline Phosphatase 67 (38-126) U/L Total Protein 5.8 L (6.3-8.2) g/dL Albumin 2.9 L (3.5-5.0) g/dL Current Medications Generic Name Dose Route Start Last Admin Trade Name Freq PRN Reason Stop Dose Admin Albuterol/Ipratropium 3 ml 08/12/17 10:35 Duoneb 0.5 Mg-3 Mg/3 Ml Soln IH RT-Q1H PRN Shortness Of Breath Or Wheezing Albuterol/Ipratropium 3 ml 08/12/17 12:00 08/12/17 11:18 Duoneb 0.5 Mg-3 Mg/3 Ml Soln INHALATION Not Given RT-QID [facility] Alprazolam 0.25 mg 08/12/17 10:35 Xanax PO DAILY PRN Anxiety Amitriptyline HCl 25 mg 08/12/17 21:00 Elavil PO HS@2100 [facility] Aspirin 325 mg 08/13/17 09:00 Aspirin PO DAILY [facility] Bisacodyl 10 mg 08/12/17 10:35 Dulcolax RECTAL DAILY PRN Constipation Darbepoetin Jayv 40 mcg 08/18/17 08:00 Aranesp SQ TU@0800 [facility] Ergocalciferol 50,000 unit 08/12/17 12:00 Vitamin D2 PO Q72H [facility] Gabapentin 300 mg 08/12/17 14:00 Neurontin PO TID@0600,1400,2100 [facility] Guaifenesin 600 mg 08/12/17 21:00 Mucinex PO BID [facility] Heparin Sodium (Porcine) 0 unit 08/12/17 10:25 Heparin IV PER PROTOCOL PRN Low PTT Protocol Sodium Chloride 1,000 mls @ 100 mls/hr 08/12/17 09:03 08/12/17 09:21 Saline 0.9% IV 08/12/17 19:02 100 mls/hr .Q10H STA Administration Heparin Sodium/Sodium Chloride 500 mls @ 10.88 mls/hr 08/12/17 10:30 11:11 25,000 unit/ Sodium Chloride IV 12 units/kg/hr .Q24H [facility] 10.88 mls/hr Protocol Administration 12 UNITS/KG/HR Magnesium Hydroxide 2,400 mg 08/12/17 10:35 Milk Of Magnesia PO DAILY PRN Constipation Metoprolol Tartrate 12.5 mg 08/12/17 21:00 Lopressor PO BID@0800,2100 [facility] Nitroglycerin 0.4 mg 08/12/17 10:31 Nitrostat SUBLINGUAL Q5M PRN Chest Pain Nystatin 500,000 unit 08/12/17 18:00 Mycostatin Oral Susp PO QID@00,06,,18 [facility] Ondansetron HCl 4 mg 08/12/17 10:35 Zofran PO Q8HR PRN Nausea Pantoprazole Sodium 40 mg 08/12/17 17:30 Protonix PO AC-BID [facility] Potassium Chloride 40 meq 08/12/17 17:00 K-Dur 20 PO DAILY@1700 [facility] Sodium Biphosphate/Sodium Phosphate 133 ml 08/12/17 10:35 Fleet Adult RECTAL DAILY PRN Constipation Tramadol HCl 50 mg 08/12/17 21:00 Ultram PO BID@0800,2100 [facility] Intake and Output 08/11/17 08/12/17 08/12/17 22:59 06:59 14:59 Other: Weight 45.359 kg Patient Weight 08/13/17 06:59 Weight 45.359 kg 08/12/17 09:06 08/12/17 09:06 EKG Interpretations (text) Assessment and plan #1 Chest pain, atypical for acute coronary syndrome. Initial troponin 0.032. EKG shows normal sinus rhythm with nonspecific ST-T wave changes in the inferior and anterior leads. #2 status post left upper lobectomy for a mass in the left upper lobe. #3 kidney failure on dialysis #4 Crohn's #5 anemia Plan We will obtain 2 subsequent troponins, obtain echocardiogram with Doppler study. DNP note has been reviewed, I agree with a documented findings and plan of care. Patient was seen and examined.
--- NOTE | 2017-08-12 15:52 | P.CNPUL ---
History of Present Illness Consult date: 08/12/17 Reason for consult: dyspnea Chief complaint: Shortness of breath History of present illness: This is a 71-year-old white female familiar to my service, patient was recently inpatient, and she underwent left upper lobectomy for what seems to be a necrotizing mass, however pathology ruled out malignancy, and it showed basically possible old granulomatous infection, cultures were pending. [place] that the patient may have had atypical mycobacterial infection involving the left upper lobe. Patient was eventually discharged to [facility], and she has been receiving dialysis for acute on chronic renal failure. Patient presented to the ER this morning complaining of sudden onset of shortness of breath, along with severe chest pain and she was noted to be hypotensive. Upon arrival to the ER, patient had an EKG showing normal sinus rhythm with nonspecific ST and T-wave changes in the inferior and anterior leads. Chest x-ray showed small to moderate left-sided pleural effusion ultrasound showed a 5.5 cm pocket in the left pleural space, and it also showed a right sided pleural effusion. Patient was admitted, and this consult was initiated. Patient has been compliant with her dialysis, and she did receive her dialysis yesterday. D-dimer was 1.89, and troponin was 0.032. Hemoglobin was 7.1. Patient was admitted, placed on heparin, seen by cardiology, and this consult was initiated. The patient herself is a poor historian, has underlying dementia, but most of the history was obtained from her . Patient denies any fever no chills no hemoptysis, presently no chest pain, and no shortness of breath at present during my evaluation. It was felt that the patient had atypical chest pain, and after reviewing her ultrasound of the chest , I recommended repeat chest x-ray after hemodialysis, and if the fluid remains unchanged in the left pleural space, may consider thoracentesis. Which will be diagnostic and therapeutic at the same time. Presently the patient is in no form of respiratory distress during my evaluation. Review of Systems According to the , patient has been progressing well since her last discharge from the hospital. Compliant with all her meds, and relatively asymptomatic, receiving hemodialysis 3 times per week. Please refer to HPI, 12 point review of systems were obtained, refer to pertinent positives and negatives in HPI. ROS unobtainable: due to mental status Past Medical History Past Medical History: Heart Failure, COPD, Fibromyalgia, GERD/Reflux, Hypertension, Osteoarthritis (OA), Pneumonia, Renal Disease Additional Past Medical History / Comment(s): 09/2016 L lung cavitary lesion then 05/2017 lesion solidification/spiculation, pt had robot assisted L upper lobectomy with lymph node dissection and on post op day 2 had respiratory acidosis, hypoxia, acute lactic acidosis, htn and shocked liver-was intubated and vented and had temporary then permanent dialysis catheter placed. Other hx : Renal failure-now on hemodialysis //Thu with last dialysis done , chron's dx, currently tx for thrush-painful swallowing, osteoporosis, 2007 liver failure d/t virus. History of Any Multi-Drug Resistant Organisms: None Reported Past Surgical History: Bowel Resection, Cholecystectomy, Hysterectomy, Orthopedic Surgery Additional Past Surgical History / Comment(s): 07/27/17 Robot assisted L upper lobectomy with lymph node dissection, temporary hemodialysis cath R femoral, permanent hemodialysis cath RIJ, bowel resections x 3 d/t chron's, L side of neck lymph node removal, L rotator cuff repair. Past Anesthesia/Blood Transfusion Reactions: No Reported Reaction, Motion Sickness Smoking Status: Former smoker - Past Family History Brother(s) Family Medical History: Cancer Father Family Medical History: Myocardial Infarction ([place]) Additional Family Medical History / Comment(s): Father of a [place] while in his 60s. Mother Family Medical History: No Reported History Additional Family Medical History / Comment(s): Mother is living and is 98yrs old. Medications and Allergies Home Medications Medication Instructions Recorded Confirmed Type ALPRAZolam [Xanax] 0.25 mg PO DAILY PRN #30 tab 07/31/17 08/12/17 Rx Bisacodyl [Dulcolax] 10 mg RECTAL DAILY PRN supp 07/31/17 08/12/17 Rx Ergocalciferol [Vitamin D2 50,000 unit PO Q72H cap 07/31/17 08/12/17 Rx (DRISDOL)] Ipratropium-Albuterol Nebulize 3 ml INHALATION RT-QID ampul.neb 07/31/17 Rx [Duoneb 0.5 mg-3 mg/3 ml Soln] Pantoprazole [Protonix] 40 mg PO AC-BID tablet. 07/31/17 08/12/17 Rx Amitriptyline HCl [Elavil] 25 mg PO HS@209908/04/17 08/12/17 History Darbepoetin Javy [Aranesp] 40 mcg SQ TU@0800 08/04/17 08/12/17 History Gabapentin [Neurontin] 300 mg PO TID@0600,1400,209908/04/17 08/12/17 History Heparin Sodium,Porcine [Heparin 5,000 unit SQ TID@0600,1400,209908/04/17 History Sodium] Ipratropium-Albuterol Nebulize 3 ml IH RT-Q1H PRN 08/04/17 08/12/17 History [Duoneb 0.5 mg-3 mg/3 ml Soln] Magnesium Hydroxide [Milk of 2,400 mg PO DAILY PRN 08/04/17 08/12/17 History Magnesia] Metoprolol Tartrate [Lopressor] 12.5 mg PO BID@0800,209908/04/17 08/12/17 History Na Phos,M-B/Na Phos,Di-Ba [Fleet 133 ml RECTAL DAILY PRN 08/04/17 08/12/17 History Adult] Nystatin 100,000 Unit/ml Susp 5 ml PO QID@00,06,,08/04/17 08/12/17 History [Mycostatin Oral Susp] Ondansetron [Zofran] 4 mg PO Q8HR PRN 08/04/17 08/12/17 History Potassium Chloride [Klor-Con 20] 40 meq PO DAILY@1700 08/04/17 08/12/17 History traMADol HCL [Ultram] 50 mg PO BID@0800,2100 08/04/17 08/12/17 History Lactose-Reduced Food [Ensure Plus] 1 can PO TID 08/12/17 08/12/17 History Levofloxacin [Levaquin] 500 mg PO ONCE 08/12/17 08/12/17 History guaiFENesin [Mucinex] 600 mg PO BID 08/12/17 08/12/17 History Allergies Allergy/AdvReac Type Severity Reaction Status Date / Time acetaminophen [From Tylenol] AdvReac can't take Verified 08/12/17 09:57 tylenol due to history pregabalin [From Lyrica] AdvReac Unknown Verified 08/12/17 09:57 Physical Exam Vitals: Vital Signs Temp Pulse Resp BP Pulse Ox 08/12/17 13:31 87 16 111/61 98 08/12/17 12:15 83 18 105/67 100 08/12/17 10:11 92 20 108/51 97 08/12/17 09:41 89 08/12/17 09:19 83 08/12/17 08:54 98.0 F 85 20 110/55 Intake and Output 08/12/17 08/12/17 08/12/17 06:59 14:59 22:59 Other: Weight 45.359 kg Physical Exam: Revealed a 71-year-old female sleepy, in no distress. Head: Atraumatic normocephalic Eyes PERRLA, EOMI, no icterus. HEENT:[Neck is supple.] [No neck masses.] [No thyromegaly.] [No JVD.] Chest: [Diminished breath sounds at the bases, no crackles or rhonchi or wheezes , no chest wall tenderness.] Cardiac Exam: [Normal S1 and S2, no S3 gallop, no murmur.] Abdomen: [Soft, nontender, no megaly, no rebound, no guarding, normal bowel sounds.] Extremities: [No clubbing, 2+ bipedal edema, no cyanosis. No tenderness. Neurological Exam: Generally weak, confused, otherwise no focal neurologic deficit Lymphatics: No lymphadenopathy. Psychiatric: Blunted affect, depressed mood, poor mental status examination. Confused. Results - Laboratory Findings CBC and BMP: 08/12/17 15:02 08/12/17 09:06 PT/INR, D-dimer PT 12.1 sec (9.0-12.0) H 08/12/17 09:06 INR 1.3 (<1.2) H 08/12/17 09:06 D-Dimer 1.89 mg/L FEU (<0.60) H 08/12/17 09:06 Abnormal lab findings: Abnormal Labs 08/12/17 08/12/17 08/12/17 09:06 09:06 09:06 RBC 2.87 L Hgb 8.2 L Hct 27.3 L MCHC 30.2 L Lymphocytes # 0.9 L PT INR APTT D-Dimer VBG pH VBG HCO3 BUN 5 L Creatinine 1.50 H AST 9 L CK-MB (CK-2) 3.0 H* Total Protein 5.8 L Albumin 2.9 L 08/12/17 08/12/17 08/12/17 09:06 09:33 15:02 RBC 2.46 L Hgb 7.1 L Hct 24.0 L MCHC 29.6 L Lymphocytes # PT 12.1 H INR 1.3 H APTT 35.7 H D-Dimer 1.89 H VBG pH 7.42 H VBG HCO3 30 H BUN Creatinine AST CK-MB (CK-2) Total Protein Albumin - Diagnostic Findings Chest x-ray: image reviewed Assessment and Plan Assessment: Impression: 1 atypical chest pain 2 suspect fluid overload and bilateral pleural effusions, and acute hypoxic respiratory failure. 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 4 history of chronic kidney injury stage V, on hemodialysis. 5 history of multiple comorbidities including depression, chronic anemia, of chronic disease, Crohn's disease, history of shock liver, and history of hypoxic respiratory failure requiring intubation and mechanical ventilation, resolved. Recommendation: Continue present treatment plan, I strongly doubt pulmonary embolism, her venous Doppler has been negative, cannot perform CT angiogram of the chest, could consider VQ scan however it will come back indeterminate. I suggest DC heparin, ultrafiltration, and if the pleural effusion persists and does not improve, will consider diagnostic and therapeutic thoracentesis on the left side. Time with Patient: Greater than 30
[2017-08-12 15:58] LABS: Creatine Kinase MB 2.9 ng/mL (0.0-2.4)
[2017-08-12] MEDS ORDERED: NON-FORMULARY DRUG (Lactose-Reduced Food [Ensure Plus] 1 CAN) PO SCH (16:00)
[2017-08-12 16:40] LABS: Eosinophils # (M) 0.21 k/uL (0-0.7); Lymphocytes # (M) 0.74 k/uL (1.0-4.8); Monocytes # (M) 0.21 k/uL (0-1.0); Neutrophils # (M) 2.95 k/uL (1.3-7.7); Neutrophils % (M) 72 %; Nucleated Red Blood Cells 0 /100 WBC (0-0); Total Cells Counted 100
[2017-08-12 16:41] LABS: Anisocytosis (M) Present; Hypochromasia (M) Present
[2017-08-12 17:42] LABS: INR 1.3 (<1.2); Prothrombin Time 12.6 sec (9.0-12.0)
[2017-08-12 17:51] LABS: Partial Thromboplastin Time 148.4 sec (22.0-30.0)
[2017-08-12] MEDS: POTASSIUM CHLORIDE ER 20 MEQ TAB.ER PO SCH (18:40)
[2017-08-12] MEDS: PANTOPRAZOLE 40 MG TABLET PO SCH (18:40)
[2017-08-12] MEDS: NYSTATIN 100,000 UNIT/ML SUSP 500,000 UNIT/5 ML CUP PO SCH ×2 (18:42→23:29)
[2017-08-12] MEDS: ERGOCALCIFEROL 50,000 UNIT CAP PO SCH (20:14)
[2017-08-12] MEDS: GABAPENTIN 300 MG CAP PO SCH ×2 (20:14→20:23)
[2017-08-12] MEDS: ALPRAZolam 0.25 MG TAB PO PRN (20:22)
[2017-08-12] MEDS: traMADol 50 MG TAB PO SCH (20:22)
[2017-08-12] MEDS: AMITRIPTYLINE HCL 25 MG TAB PO SCH (20:23)
[2017-08-12] MEDS ORDERED: METOPROLOL TARTRATE 12.5 MG TAB PO SCH (21:00)
[2017-08-12] MEDS ORDERED: guaiFENesin 600 MG TABLET.ER PO SCH (21:00)
[2017-08-12 21:54] LABS: Creatine Kinase MB 3.4 ng/mL (0.0-2.4); Troponin I 0.04 ng/mL (0.000-0.034)
[2017-08-12 21:57] LABS: Troponin I 0.035 ng/mL (0.000-0.034)
--- NOTE | 2017-08-12 22:57 | HP ---
HISTORY AND PHYSICAL DATE OF ADMISSION: 08/12/2017 PRESENTING COMPLAINT: Short of breath, congested. HISTORY OF PRESENTING COMPLAINT: A pleasant 71-year-old patient who currently is at the [facility]. Follows with Sandra Winkler. The patient on 07/09/2017 underwent left upper lobectomy and lymph node dissection and the pathology was sent out. Mycobacteria was ruled out, was found to have old granulomatous tissue with a cavitary lesion. No bacteria were found. The patient's last admission also had acute kidney injury and patient is now on hemodialysis. The patient's other chronic stable medical conditions include Crohn disease, depression, fibromyalgia, GERD, hypertension, osteoarthritis. The patient came in for 2 days of increasing amount of cough, very congested in the chest, not able to bring up any sputum, states she has had some fever, decreased appetite, tired, run down. The patient is an ex-smoker. The patient is put in the ER on IV heparin. There was concern of questionable PE. Pulmonary Dr. Bobby was consulted. The patient is really feeling tired, run down. REVIEW OF SYSTEMS: CONSTITUTIONAL: Weak, tired, run down, loss of appetite. HEENT: None. RESPIRATORY: As above. CARDIOVASCULAR: Some pain when she coughs. GASTROINTESTINAL: None. GENITOURINARY: None. MUSCULOSKELETAL: Some pain in different joints. DERMATOLOGICAL: None. HEMATOLOGICAL: None. LYMPHATIC: None. PSYCHIATRY: Anxious, depression. NEUROLOGICAL: Denies muscle weakness. PAST MEDICAL HISTORY: Of acute kidney injury leading to hemodialysis, Crohn disease, depression, COPD, fibromyalgia, GERD, hypertension, osteoarthritis, left upper lung lobectomy. Cultures came back negative. Some osteoporosis. Liver failure in past due to virus in 2006. SOCIAL HISTORY: Bowel resection, cholecystectomy, hysterectomy, permanent dialysis catheter in the right IJ, bowel resection x3 due to Crohn's, left rotator cuff repair. SOCIAL HISTORY: The patient is currently at [facility]. She ambulates with a gait belt into assist. Able to feed herself very slowly. . The patient lived in [place] for 30 years, also lived in [facility], but now in [place] for the last few years. The patient smoked about 2 packs a day for 30 years, stopped in 1993. The patient would drink 2 glasses of wine up until not too long ago. FAMILY HISTORY: Father of a heart attack in his 60s. HOME MEDICATIONS: 1. Ultram 50 mg p.o. b.i.d. 2. Mucinex 600 mg b.i.d. 3. Klor-Con 40 mEq p.o. daily. 4. Protonix 40 mg a.c. b.i.d. 5. Zofran 4 mg p.o. q.8h p.r.n. 6. Nystatin 5 mL p.o. q.i.d. 7. Adult Fleet 133 mL rectal daily p.r.n. 8. Lopressor 12.5 p.o. b.i.d. 9. Milk of magnesia 2400 mg p.o. daily p.r.n. 10.Levaquin 500 mg p.o. 11.Ensure Plus 1 can p.o. t.i.d. 12.DuoNeb 3 mL inhalation q.i.d. 13.Neurontin 300 mg p.o. t.i.d. 14.Vitamin D2 50,000 units every 72 hours. 15. 40 mcg subcu Thursday. 16.Dulcolax 10 mg rectal daily p.r.n. 17.Elavil 25 p.o. q.h.s. 18.Xanax 0.25 p.o. daily p.r.n. ALLERGIES: To TYLENOL, LYRICA. PHYSICAL EXAMINATION: VITAL SIGNS: On presentation, temperature 98, pulse 85, respirations 20, blood pressure 110/55, pulse ox 97% on 6L. GENERAL APPEARANCE: Thin build, sitting up, very tired-appearing, short of breath at rest. EYES: Pupils equal. Conjunctivae normal. HEENT: External nose and ears normal. Oral cavity: Dry mucous membranes. NECK: JVD not raised. Mass not palpable. RESPIRATORY: Effort increased. LUNGS: Coarse crackles on the left base with some bronchial breathing. CARDIOVASCULAR: First and second sounds normal. No edema. ABDOMEN: Soft, nontender. Liver and spleen not palpable. LYMPHATIC: No lymph node palpable in neck or axillae. PSYCHIATRY: Alert and oriented x3. Mood is slightly anxious-appearing. NEUROLOGICAL: Pupils equal. Cranial nerve grossly intact. Power and sensation grossly intact. INVESTIGATIONS: White count 4.1, hemoglobin 7.1, pro time 12.6. Potassium 4.2, BUN 5, creatinine 1.50. Albumin 2.9. Troponin 0.035. Chest x-ray reports moderate left pleural effusion with adjacent atelectasis and/or consolidation. EKG: Normal sinus rhythm with low QRS voltage. Chest ultrasound shows bilateral pleural effusions. Venous Doppler negative ultrasound. ASSESSMENT: 1. Possible left-sided pneumonia with the patient's chest congested. Does complain of some fevers, though none are recorded here. The patient does not have a white count and that may be possible. 2. Bilateral pleural effusion, could be postoperative from surgery. Need to rule out congestive heart failure. 3. End-stage kidney disease on hemodialysis. The dialysis catheter in the right chest wall of the internal jugular vein. 4. Depression, anxiety, not otherwise specified. 5. Chronic obstructive pulmonary disease in an ex-smoker. 6. Chronic fibromyalgia. 7. Gastroesophageal reflux disease. 8. Primary osteoarthritis of multiple joints bilaterally. 9. Left upper lobe lobectomy recently, cultures coming back negative. PLAN: Home medications are resumed. Patient is on breathing treatments. Will also add Mucinex. Will empirically put the patient on ceftriaxone. Pulmonary embolism appears to be unlikely, given the negative ultrasound done on the thighs. Consultation to Cardiology and Pulmonary was done. Care was discussed the patient. MMODL / IJN: [id number] /
[2017-08-12] MEDS: cefTRIAXone IN SWFI 1,000 MG/10 ML SYRINGE IVP SCH (23:08)
[2017-08-12] MEDS: guaiFENesin 600 MG TABLET.ER PO SCH (23:08)
[2017-08-13] MEDS ORDERED: PIPERACILLIN-TAZOBACTAM 3.375 GM in DEXTROSE/WATER 1 50ML.BAG IVPB SCH
[2017-08-13 03:57] LABS: Basophils # (A) 0.1 k/uL (0-0.2); Basophils % (A) 1 %; Eosinophils # (A) 0.3 k/uL (0-0.7); Hypochromasia Marked; Macrocytosis Slight; Mean Platelet Volume 7.6
[2017-08-13 04:04] LABS: Eosinophils % (A) 6 %; HCT 27.2 % (34.0-46.0); HGB 7.8 gm/dL (11.4-16.0); Lymphocytes # (A) 1.1 k/uL (1.0-4.8); Lymphocytes % (A) 21 %; MCH 28.5 pg (25.0-35.0); MCHC 28.7 g/dL (31.0-37.0); MCV 99.3 fL (80.0-100.0); Monocytes # (A) 0.3 k/uL (0-1.0); Monocytes % (A) 6 %; Neutrophils # (A) 3.4 k/uL (1.3-7.7); Neutrophils % (A) 63 %; Platelet Count 239 k/uL (150-450); RBC 2.74 m/uL (3.80-5.40); RDW 14.5 % (11.5-15.5); WBC 5.4 k/uL (3.8-10.6)
[2017-08-13] MEDS: IPRATROPIUM-ALBUTEROL 3 ML NEB INHALATION SCH ×5 (04:58→20:43)
[2017-08-13 05:02] LABS: Cholesterol 122 mg/dL (<200); HDL Cholesterol 57 mg/dL (40-60); LDL Cholesterol,Calculated 46 mg/dL (0-99); Triglycerides 97 mg/dL (<150)
[2017-08-13] MEDS: GABAPENTIN 300 MG CAP PO SCH ×3 (06:41→21:46)
[2017-08-13] MEDS: NYSTATIN 100,000 UNIT/ML SUSP 500,000 UNIT/5 ML CUP PO SCH ×5 (06:41→23:41)
[2017-08-13] MEDS: PANTOPRAZOLE 40 MG TABLET PO SCH ×2 (06:42→17:04)
[2017-08-13] MEDS: guaiFENesin 600 MG TABLET.ER PO SCH ×2 (08:48→21:47)
[2017-08-13] MEDS: traMADol 50 MG TAB PO SCH ×2 (08:49→21:47)
[2017-08-13] MEDS: FUROSEMIDE 10 MG/ML 10 ML VIAL IV SCH ×2 (08:52→21:48)
[2017-08-13] MEDS: ASPIRIN 81 MG PO SCH (08:52)
--- NOTE | 2017-08-13 08:55 | P.NPCON ---
History of Present Illness - Reason for Consult chronic renal failure - History of Present Illness Reason for consultation: Acute kidney injury History of present illness: Patient is a 71-year-old female seen in renal consultation for acute kidney injury currently hemodialysis dependent. Patient was admitted to the hospital in July 2017 and underwent a left upper lobe lobectomy due to a cavitary lesion. Malignancy was ruled out. Subsequently patient went into a shock state and developed ATN and was subsequently started on hemodialysis. She is currently maintained on a Thursday schedule and has a right sided IJ catheter in place. Patient presented to the hospital with dyspnea. Chest x-ray revealed bilateral pleural effusions. There was also concern for pneumonia for which she is maintained on antibiotics. Patient appears quite dyspneic and restless at this time. She denies chest pain. She is also noted to have urinary retention and required straight catheterization this morning with over 1 L of urine obtained. Vital signs are stable. General: The patient appeared well nourished and normally developed. HEENT: Head exam is unremarkable. Neck is without jugular venous distension. LUNGS: Breath sounds decreased. Scattered rhonchi. HEART: Rate and Rhythm are regular. First and second heart sounds normal. No murmurs, rubs or gallops. ABDOMEN: Abdominal exam reveals normal bowel sounds. Non-tender and non- distended. No evidence of peritonitis. EXTREMITITES: No clubbing, cyanosis, or edema. Past Medical History Past Medical History: Heart Failure, COPD, Fibromyalgia, GERD/Reflux, Hypertension, Osteoarthritis (OA), Pneumonia, Renal Disease Additional Past Medical History / Comment(s): 09/2016 L lung cavitary lesion then 05/2017 lesion solidification/spiculation, pt had robot assisted L upper lobectomy with lymph node dissection and on post op day 2 had respiratory acidosis, hypoxia, acute lactic acidosis, htn and shocked liver-was intubated and vented and had temporary then permanent dialysis catheter placed. Other hx : Renal failure-now on hemodialysis //Thu with last dialysis done , chron's dx, currently tx for thrush-painful swallowing, osteoporosis, 2007 liver failure d/t virus. History of Any Multi-Drug Resistant Organisms: None Reported Past Surgical History: Bowel Resection, Cholecystectomy, Hysterectomy, Orthopedic Surgery Additional Past Surgical History / Comment(s): 07/27/17 Robot assisted L upper lobectomy with lymph node dissection, temporary hemodialysis cath R femoral, permanent hemodialysis cath RIJ, bowel resections x 3 d/t chron's, L side of neck lymph node removal, L rotator cuff repair. Past Anesthesia/Blood Transfusion Reactions: No Reported Reaction, Motion Sickness Smoking Status: Former smoker - Past Family History Brother(s) Family Medical History: Cancer Father Family Medical History: Myocardial Infarction ([place]) Additional Family Medical History / Comment(s): Father of a [place] while in his 60s. Mother Family Medical History: No Reported History Additional Family Medical History / Comment(s): Mother is living and is 98yrs old. Medications and Allergies Home Medications Medication Instructions Recorded Confirmed Type ALPRAZolam [Xanax] 0.25 mg PO DAILY PRN #30 tab 07/31/17 08/12/17 Rx Bisacodyl [Dulcolax] 10 mg RECTAL DAILY PRN supp 07/31/17 08/12/17 Rx Ergocalciferol [Vitamin D2 50,000 unit PO Q72H cap 07/31/17 08/12/17 Rx (DRISDOL)] Ipratropium-Albuterol Nebulize 3 ml INHALATION RT-QID ampul.neb 07/31/17 Rx [Duoneb 0.5 mg-3 mg/3 ml Soln] Pantoprazole [Protonix] 40 mg PO AC-BID tablet. 07/31/17 08/12/17 Rx Amitriptyline HCl [Elavil] 25 mg PO HS@2100 08/04/17 08/12/17 History Darbepoetin Javy [Aranesp] 40 mcg SQ TU@0800 08/04/17 08/12/17 History Gabapentin [Neurontin] 300 mg PO TID@0600,1400,2100 08/04/17 08/12/17 History Heparin Sodium,Porcine [Heparin 5,000 unit SQ TID@0600,1400,2100 08/04/17 History Sodium] Ipratropium-Albuterol Nebulize 3 ml IH RT-Q1H PRN 08/04/17 08/12/17 History [Duoneb 0.5 mg-3 mg/3 ml Soln] Magnesium Hydroxide [Milk of 2,400 mg PO DAILY PRN 08/04/17 08/12/17 History Magnesia] Metoprolol Tartrate [Lopressor] 12.5 mg PO BID@0800,2100 08/04/17 08/12/17 History Na Phos,M-B/Na Phos,Di-Ba [Fleet 133 ml RECTAL DAILY PRN 08/04/17 08/12/17 History Adult] Nystatin 100,000 Unit/ml Susp 5 ml PO QID@00,06,12,18 08/04/17 08/12/17 History [Mycostatin Oral Susp] Ondansetron [Zofran] 4 mg PO Q8HR PRN 08/04/17 08/12/17 History Potassium Chloride [Klor-Con 20] 40 meq PO DAILY@1700 08/04/17 08/12/17 History traMADol HCL [Ultram] 50 mg PO BID@0800,2100 08/04/17 08/12/17 History Lactose-Reduced Food [Ensure Plus] 1 can PO TID 08/12/17 08/12/17 History Levofloxacin [Levaquin] 500 mg PO ONCE 08/12/17 08/12/17 History guaiFENesin [Mucinex] 600 mg PO BID 08/12/17 08/12/17 History Allergies Allergy/AdvReac Type Severity Reaction Status Date / Time acetaminophen [From Tylenol] AdvReac can't take Verified 08/12/17 09:57 tylenol due to history pregabalin [From Lyrica] AdvReac Unknown Verified 08/12/17 09:57 Physical Exam Vitals: Vital Signs Temp Pulse Pulse Resp BP BP Pulse Ox 08/13/17 07:44 108 H 08/13/17 07:37 92 L 08/13/17 07:35 100 08/13/17 04:00 100.4 F H 110 H 20 122/61 100 08/13/17 00:40 92 08/13/17 00:29 92 08/13/17 00:00 99.0 F 93 16 119/65 97 08/12/17 21:12 92 08/12/17 20:50 88 93 L 08/12/17 20:00 99.0 F 98 18 141/63 97 08/12/17 16:00 98.2 F 72 18 132/68 94 L 08/12/17 15:47 87 08/12/17 15:40 87 08/12/17 13:31 87 16 111/61 98 08/12/17 12:15 83 18 105/67 100 08/12/17 10:11 92 20 108/51 97 08/12/17 09:41 89 08/12/17 09:19 83 08/12/17 08:54 98.0 F 85 20 110/55 Intake and Output 08/12/17 08/13/17 08/13/17 22:59 06:59 14:59 Intake Total 95.744 68.272 Output Total 1050 Balance 95.744 -981.728 Intake: Intake, IV Titration 95.744 68.272 Amount Heparin Sod,Pork in 0.45% 95.744 68.272 NaCl 25,000 unit In 0.45 % NaCl 1 500ml.bag @ 12 UNITS/KG/HR 10.88 mls/hr IV .Q24H [facility] Rx#: [id number] Output: Urine 1050 Other: Voiding Method Indwelling Catheter # Voids 1 Results - Lab Results Most recent lab results Calcium 8.5 mg/dL (8.4-10.2) 08/12/17 09:06 08/13/17 02:35 08/12/17 09:06 Assessment and Plan Plan: Assessment: #1. Acute kidney injury, hemodialysis dependent on a Thursday schedule from nonrecovered ATN in July 2017. #2. Dyspnea related to fluid overload. Also concern for pneumonia and pulmonary embolism. #3. Status post left upper lobe lobectomy and lymph node dissection in July 2017 due to a cavitary lesion. #4. Anemia. Rule out iron deficiency. #5. Urinary retention requiring straight catheterization. #6. Bilateral pleural effusions. Pulmonology following. Potential thoracentesis today. Plan: Start Lasix 60 mg IV twice daily. Monitor serial postvoid residuals and to insert Green catheter if has persistent urinary retention. Hemodialysis today with goal 2-3 L ultrafiltration as blood pressure able to tolerate. Check iron studies. Maintain Aranesp. Discontinue Fleet enemas. Okay to proceed with CTA if absolutely required to rule out PE. Thank you for the consultation. I will continue to follow the patient with you during her hospital stay.
[2017-08-13 08:58] LABS: Calcium 7.9 mg/dL (8.4-10.2); Potassium 3.8 mmol/L (3.5-5.1)
[2017-08-13] MEDS ORDERED: ASPIRIN 325 MG TAB PO SCH (09:00)
[2017-08-13 09:54] LABS: Phosphorus 4.7 mg/dL (2.5-4.5)
[2017-08-13] MEDS: METOPROLOL TARTRATE 25 MG TAB PO SCH ×2 (10:01→21:47)
[2017-08-13] MEDS: IBUPROFEN 400 MG TAB PO PRN ×2 (10:59→17:03)
--- NOTE | 2017-08-13 11:43 | ECHOF ---
Referral Reason:chest pain MEASUREMENTS -------- HEIGHT: 152.4 cm WEIGHT: 45.4 kg BP: 111/61 RVIDd: 3.1 cm (< 3.3) IVSd: 0.8 cm (0.6 - 1.1) LVIDd: 4.0 cm (3.9 - 5.3) LVPWd: 0.8 cm (0.6 - 1.1) IVSs: 1.1 cm LVIDs: 2.3 cm LVPWs: 1.1 cm LA Diam: 2.6 cm (2.7 - 3.8) LAESV Index (A-L): 12.04 ml/m Ao Diam: 3.0 cm (2.0 - 3.7) AV Cusp: 1.8 cm (1.5 - 2.6) LA Diam: 2.5 cm (2.7 - 3.8) EPSS: 0.7 cm MV E Haroldo: 0.88 m/s MV DecT: 284 ms MV A Haroldo: 1.15 m/s MV E/A Ratio: 0.77 RAP: 15.00 mmHg RVSP: 58.14 mmHg MV EF SLOPE: 83.53 mm/s (70 - 150) MV EXCURSION: 1.62 cm (> 18.000) FINDINGS -------- Sinus rhythm. This was a technically adequate study. The left ventricular size is normal. Left ventricular wall thickness is normal. Overall left vent ricular systolic function is normal with, an EF between 60 - 65 %. The right ventricle is normal in size and function. Normal LA size by volume 22+/-6 ml/m2. RA appears enlarged. Aortic valve is trileaflet and is mildly thickened. There is no evidence of aortic regurgitation. There is no evidence of aortic stenosis. The mitral valve leaflets are mildly thickened. There is trace to mild mitral regurgitation. Mild tricuspid regurgitation present. There is moderate pulmonary hypertension. The right ventric ular systolic pressure, as measured by Doppler, is 58.14mmHg. Trace/mild (physiologic) pulmonic regurgitation. The aortic root size is normal. The inferior vena cava is dilated with poor inspiratory collapse which is consistent with estimated r ight atrial pressure of 20 mmHg. There is a trivial pericardial effusion present. Large Pleural Effusion. CONCLUSIONS -------- 1. Sinus rhythm. 2. This was a technically adequate study. 3. The left ventricular size is normal. 4. Left ventricular wall thickness is normal. 5. Overall left ventricular systolic function is normal with, an EF between 60 - 65 %. 6. Normal LA size by volume 22+/-6 ml/m2. 7. RA appears enlarged. 8. Aortic valve is trileaflet and is mildly thickened. 9. The mitral valve leaflets are mildly thickened. 10. There is trace to mild mitral regurgitation. 11. Mild tricuspid regurgitation present. 12. There is moderate pulmonary hypertension. 13. The right ventricular systolic pressure, as measured by Doppler, is 58.14mmHg. 14. Trace/mild (physiologic) pulmonic regurgitation. 15. The aortic root size is normal. 16. The inferior vena cava is dilated with poor inspiratory collapse which is consistent with estimat ed right atrial pressure of 20 mmHg. 17. There is a trivial pericardial effusion present. 18. Large Pleural Effusion. STEAM METER READER: Medhat Hunter RDCS
--- NOTE | 2017-08-13 13:38 | P.PN ---
Subjective Progress Note Date: 08/13/17 Principal diagnosis: This is a 71-year-old white female familiar to my service, patient was recently inpatient, and she underwent left upper lobectomy for what seems to be a necrotizing mass, however pathology ruled out malignancy, and it showed basically possible old granulomatous infection, cultures were pending. Sixes that the patient may have had atypical mycobacterial infection involving the left upper lobe. Patient was eventually discharged to [facility], [place], and she has been receiving dialysis for acute on chronic renal failure. Patient presented to the ER this morning complaining of sudden onset of shortness of breath, along with severe chest pain and she was noted to be hypotensive. Upon arrival to the ER, patient had an EKG showing normal sinus rhythm with nonspecific ST and T-wave changes in the inferior and anterior leads. Chest x-ray showed small to moderate left-sided pleural effusion ultrasound showed a 5.5 cm pocket in the left pleural space, and it also showed a right sided pleural effusion. Patient was admitted, and this consult was initiated. Patient has been compliant with her dialysis, and she did receive her dialysis yesterday. D-dimer was 1.89, and troponin was 0.032. Hemoglobin was 7.1. Patient was admitted, placed on heparin, seen by cardiology, and this consult was initiated. The patient herself is a poor historian, has underlying dementia, but most of the history was obtained from her . Patient denies any fever no chills no hemoptysis, presently no chest pain, and no shortness of breath at present during my evaluation. It was felt that the patient had atypical chest pain, and after reviewing her ultrasound of the chest , I recommended repeat chest x-ray after hemodialysis, and if the fluid remains unchanged in the left pleural space, may consider thoracentesis. Which will be diagnostic and therapeutic at the same time. Presently the patient is in no form of respiratory distress during my evaluation. The patient is seen again today 08/13/2017 in follow-up on the selective care unit. She is currently awake and alert. She is still somewhat dyspneic on exertion. She is requiring 6 L high flow nasal cannula to maintain O2 saturations in the 90s. Temperature 99.6. She is receiving hemodialysis. The plan was for 2.5 L to be removed however her blood pressure is not allowing that M probably 1 L all be removed. We'll plan for chest x-ray today shortly after dialysis to evaluate the pleural effusion. Blood cultures revealing no growth. Hemoglobin 7.8. White count 5.4. White count 1.81. BNP 16,300. Objective - Vital Signs Vital signs: Vital Signs Temp 99.6 F 08/13/17 12:00 Pulse 100 08/13/17 12:00 Resp 20 08/13/17 12:00 BP 104/50 08/13/17 12:00 Pulse Ox 95 08/13/17 12:00 Intake & Output 08/12/17 08/13/17 08/13/17 18:59 06:59 18:59 Intake Total 164.016 Output Total 1050 400 Balance -885.984 -400 Weight 45.359 kg 45.359 kg Intake: Intake, IV Titration 164.016 Amount Heparin Sod,Pork in 0.45% 164.016 NaCl 25,000 unit In 0.45 % NaCl 1 500ml.bag @ 12 UNITS/KG/HR 10.88 mls/hr IV .Q24H REPLACED BY [facility] Rx#: [id number] Output: Urine 1050 400 Other: Voiding Method Indwelling Catheter # Voids 1 - Exam GENERAL EXAM: Frail, weak. Alert, fairly comfortable in no apparent distress. HEAD: Normocephalic. EYES: Normal reaction of pupils, equal size. NOSE: Clear with pink turbinates. THROAT: No erythema or exudates. NECK: No masses, no JVD. CHEST: No chest wall deformity. LUNGS: Diminished in the bilateral posterior bases. CVS: S1 and S2 normal with no audible murmur, regular rhythm. ABDOMEN: No hepatosplenomegaly, normal bowel sounds, no guarding or rigidity. SPINE: No scoliosis or deformity SKIN: No rashes CENTRAL NERVOUS SYSTEM: No focal deficits, tone is normal in all 4 extremities. EXTREMITIES: There is no peripheral edema. No clubbing, no cyanosis. Peripheral pulses are intact.m - Labs CBC & Chem 7: 08/13/17 02:35 08/13/17 02:35 Labs: Abnormal Lab Results - Last 24 Hours (Table) 08/12/17 08/12/17 08/12/17 Range/Units 15:02 15:02 16:56 RBC 2.46 L (3.80-5.40) m/uL Hgb 7.1 L (11.4-16.0) gm/dL Hct 24.0 L (34.0-46.0) % MCHC 29.6 L (31.0-37.0) g/dL Lymphocytes # (Manual) 0.74 L (1.0-4.8) k/uL PT 12.6 H (9.0-12.0) sec INR 1.3 H (<1.2) APTT 148.4 H* (22.0-30.0) sec Creatinine (0.52-1.04) mg/dL Calcium (8.4-10.2) mg/dL Phosphorus (2.5-4.5) mg/dL CK-MB (CK-2) 2.9 H* (0.0-2.4) ng/mL Troponin I 0.035 H* (0.000-0.034) ng/mL 08/12/17 08/13/17 08/13/17 Range/Units 21:10 02:35 02:35 RBC 2.74 L (3.80-5.40) m/uL Hgb 7.8 L (11.4-16.0) gm/dL Hct 27.2 L (34.0-46.0) % MCHC 28.7 L (31.0-37.0) g/dL Lymphocytes # (Manual) (1.0-4.8) k/uL PT (9.0-12.0) sec INR (<1.2) APTT 41.8 H (22.0-30.0) sec Creatinine (0.52-1.04) mg/dL Calcium (8.4-10.2) mg/dL Phosphorus (2.5-4.5) mg/dL CK-MB (CK-2) 3.4 H* (0.0-2.4) ng/mL Troponin I 0.040 H* (0.000-0.034) ng/mL 08/13/17 08/13/17 Range/Units 02:35 10:36 RBC (3.80-5.40) m/uL Hgb (11.4-16.0) gm/dL Hct (34.0-46.0) % MCHC (31.0-37.0) g/dL Lymphocytes # (Manual) (1.0-4.8) k/uL PT (9.0-12.0) sec INR (<1.2) APTT 39.3 H (22.0-30.0) sec Creatinine 1.81 H (0.52-1.04) mg/dL Calcium 7.9 L (8.4-10.2) mg/dL Phosphorus 4.7 H (2.5-4.5) mg/dL CK-MB (CK-2) (0.0-2.4) ng/mL Troponin I (0.000-0.034) ng/mL Microbiology - Last 24 Hours (Table) 08/12/17 09:06 Blood Culture - Preliminary Blood No Growth after 24 hours Assessment and Plan Assessment: Impression: 1 atypical chest pain 2 suspect fluid overload and bilateral pleural effusions, and acute hypoxic respiratory failure. 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 4 history of chronic kidney injury stage V, on hemodialysis. 5 history of multiple comorbidities including depression, chronic anemia, of chronic disease, Crohn's disease, history of shock liver, and history of hypoxic respiratory failure requiring intubation and mechanical ventilation, resolved. Recommendation: The patient was seen and evaluated by Dr. Bobby. She is currently receiving hemodialysis. We'll review the follow-up chest x-ray. If there is still significant pleural effusions we'll plan for thoracentesis on the left. In the interim we'll continue with her current medications. We will continue to follow and make further recommendations based on her clinical status. I, the cosigning physician, performed a history & physical examination of the patient. Lungs sounds are in addition the bilateral posterior bases. Maintaining good O2 saturations in the 90s on 6 liters high flow nasal cannula. I discussed the assessment and plan of care with my nurse practitioner, Kasie Roy. I attest to the above note as dictated by her.
[2017-08-13] MEDS: HEPARIN SODIUM,PORCINE 5,000 UNIT/ML 1 ML VIAL IV PRN (14:59)
[2017-08-13] MEDS: ALPRAZolam 0.25 MG TAB PO PRN (14:59)
[2017-08-13] MEDS: HEPARIN SOD,PORK IN 0.45% NACL 25,000 UNIT in 0.45% NACL 1 500ML.BAG IV SCH (15:00)
[2017-08-13] MEDS ORDERED: HEPARIN SODIUM,PORCINE 5,000 UNIT/ML 1 ML VIAL ONE (15:00)
--- NOTE | 2017-08-13 16:43 | PN ---
PROGRESS NOTE DATE OF SERVICE: 08/13/2017 PRESENTING COMPLAINT: Short of breath, congested. INTERVAL HISTORY: This patient with left upper lobectomy with negative pathology presented with shortness of breath and congestion, not able to expectorate. She had a low-grade fever. Patient has a significant large left-sided pleural effusion. Not much of an appetite. is present. She is getting hemodialysis today. Blood pressure is running a bit on the lower side. Patient does feel weak, tired, rundown. REVIEW OF SYSTEMS: Done for constitutional, cardiovascular, GI, pulmonary; relevant findings as above. CURRENT MEDICATIONS: Reviewed. They include IV ceftriaxone. PHYSICAL EXAMINATION: T-max 100.6. Pulse 100, respiration 20, blood pressure 104/50, pulse ox 95% on 6 L. GENERAL APPEARANCE: Lying in bed, very tired-appearing. EYES: Pupils equal. Conjunctivae pale. HEENT: External appearance of nose and ears normal. Oral cavity with dry mucous membrane. NECK: JVD unable to assess. Mass not palpable. RESPIRATORY: Effort increased. LUNGS: Diminished breath sounds, especially in the left base. Bronchial breathing. CARDIOVASCULAR: First and second sounds normal. No edema. ABDOMEN: Soft, nontender. Liver and spleen not palpable. PSYCHIATRY: Alert and oriented x3. Mood and affect anxious-appearing. INVESTIGATIONS: White count 5.4, hemoglobin 7.8, potassium 3.8, BUN 8, creatinine 1.81. ASSESSMENT: 1. Possible left-sided pneumonia. Patient is having some fever and very congested chest. 2. Bilateral pleural effusion, larger on the left side. 3. End-stage kidney disease, on hemodialysis with dialysis catheter in the right chest wall. 4. Depression and anxiety not otherwise specified. 5. Chronic obstructive pulmonary disease in an ex-smoker. 6. Chronic fibromyalgia. 7. Gastroesophageal reflux disease. 8. Primary osteoarthritis in multiple joints bilaterally. 9. Left upper lobe lobectomy; recent cultures negative. 10.Significant medical debility. 11.Acute hypoxic respiratory failure, probably from pneumonia/pleural effusion. PLAN: Patient is currently on ceftriaxone. Dr. Barakat from [place] was also consulted. Patient was hemodialyzed today. Patient is not eating much. Patient may benefit from getting tapped. MMODL / IJN: [id number] /
[2017-08-13 16:51] LABS: Iron Saturation 12.26 (12.00-45.00)
[2017-08-13] MEDS: POTASSIUM CHLORIDE ER 20 MEQ TAB.ER PO SCH (17:04)
[2017-08-13] MEDS ORDERED: IPRATROPIUM-ALBUTEROL 3 ML NEB INHALATION SCH (21:28)
[2017-08-13] MEDS: AMITRIPTYLINE HCL 25 MG TAB PO SCH (21:46)
[2017-08-13] MEDS: cefTRIAXone IN SWFI 1,000 MG/10 ML SYRINGE IVP SCH (21:48)
--- NOTE | 2017-08-13 23:30 | P.CONS ---
History of Present Illness - Reason for Consult Consult date: 08/13/17 - Chief Complaint Shortness of breath - History of Present Illness 71-year-old female presents from the extended care facility with chest pain and increasing shortness of breath. She has a known history of the left upper lobe lesion and was found the outpatient setting over the last many months. There were some changes is noted by computed tomography scan and PET scan and patient elected for a resection rather than a biopsy. The patient surgery actually went quite well she was extubated after the procedure but on the third day she had a major change in her status. She developed what appears to be septic shock and required transfer to the intensive care unit and treated with BiPAP and intubation. She is not evidence of acute renal failure as well as shock liver and resultant consumptive coagulopathy and anemia. Eventually she improved and was discharged to extended care receiving hemodialysis. She has been doing relatively well with her dialysis but on the day admission had the sudden onset of increasing shortness of breath and chest pain and cascades been admitted and seen by nephrology, pulmonary critical care and cardiology. Goal is to try to remove some of her excess fluid which may then help her shortness of breath. She has been seen by pulmonary and they're contemplating thoracentesis to also attempts to improve her shortness of breath more rapidly. Review of Systems HEENT:Denies headache or acute visual change. Denies sinus or mouth discomforts. Denies neck stiffness or pain. Denies significant oral cavity pain. Denies difficulty on swallowing. Lungs: As noted in the HPI patient was very short of breath but is denying sickened cough or sputum production or hemoptysis Cardiovascular: As per the HPI significant chest pain and shortness of breath which is now improved. Gastrointestinal:Denies nausea, vomiting, diarrhea, constipation, hematemesis, melena, hematochezia. No no significant change of bowel habit noticed. Musculoskeletal: denies significant myalgias or arthralgias. No new joint swelling. Denies new back pain. Skin: Denies new rash or lesions. No new ulcers or wounds are related.. Neuro: Denies headache or visual change. Denies any new onset weakness or difficulty with ambulation. Denies falls or seizures. Psychiatric:Denies anxiety or depression. Endocrine: Significant fatigue and weight gain has occurred Past Medical History Past Medical History: Heart Failure, COPD, Fibromyalgia, GERD/Reflux, Hypertension, Osteoarthritis (OA), Pneumonia, Renal Disease Additional Past Medical History / Comment(s): 09/2016 L lung cavitary lesion then 05/2017 lesion solidification/spiculation, pt had robot assisted L upper lobectomy with lymph node dissection and on post op day 2 had respiratory acidosis, hypoxia, acute lactic acidosis, htn and shocked liver-was intubated and vented and had temporary then permanent dialysis catheter placed. Other hx : Renal failure-now on hemodialysis Tues/Th/Sat with last dialysis done , chron's dx, currently tx for thrush-painful swallowing, osteoporosis, 2007 liver failure d/t virus. History of Any Multi-Drug Resistant Organisms: None Reported Past Surgical History: Bowel Resection, Cholecystectomy, Hysterectomy, Orthopedic Surgery Additional Past Surgical History / Comment(s): 07/27/17 Robot assisted L upper lobectomy with lymph node dissection, temporary hemodialysis cath R femoral, permanent hemodialysis cath RIJ, bowel resections x 3 d/t chron's, L side of neck lymph node removal, L rotator cuff repair. Past Anesthesia/Blood Transfusion Reactions: No Reported Reaction, Motion Sickness Additional Psychological History / Comment(s): and lives in the family home with her who is also her major assembly inspector. Remote history of tobacco use. As related lived in [place] for 30 years and is noted has also lived in the [place], but is now residing in [place] for the last many years. With no recent travels. relates no animal exposures. She is a retired air defence officer Smoking Status: Former smoker - Past Family History Brother(s) Family Medical History: Cancer Father Family Medical History: Myocardial Infarction (MS) Additional Family Medical History / Comment(s): Father of a MS while in his 60s. Mother Family Medical History: No Reported History Additional Family Medical History / Comment(s): Mother is living and is 98yrs old. Medications and Allergies Home Medications and Allergies Comment(s): Current Medications Albuterol/Ipratropium (Duoneb 0.5 Mg-3 Mg/3 Ml Soln) 3 ml IH RT-Q1H PRN PRN Reason: Shortness Of Breath Or Wheezing Last Admin: 08/13/17 00:28 Dose: 3 ml Albuterol/Ipratropium (Duoneb 0.5 Mg-3 Mg/3 Ml Soln) 3 ml INHALATION RT-Q4H [facility] Last Admin: 08/13/17 20:43 Dose: Not Given Alprazolam (Xanax) 0.25 mg PO BID PRN PRN Reason: Anxiety Amitriptyline HCl (Elavil) 25 mg PO HS@2100 [facility] Last Admin: 08/13/17 21:46 Dose: 25 mg Aspirin (Aspirin) 81 mg PO DAILY [facility] Last Admin: 08/13/17 08:52 Dose: 81 mg Bisacodyl (Dulcolax) 10 mg RECTAL DAILY PRN PRN Reason: Constipation Ceftriaxone Sodium (Rocephin) 1,000 mg IVP Q24H [facility] Last Admin: 08/13/17 21:48 Dose: 1,000 mg Darbepoetin Javy (Aranesp) 40 mcg SQ TU@0800 [facility] Ergocalciferol (Vitamin D2) 50,000 unit PO Q72H [facility] Last Admin: 08/12/17 20:14 Dose: Not Given Furosemide (Lasix) 60 mg IV Q12HR [facility] Last Admin: 08/13/17 21:48 Dose: 60 mg Gabapentin (Neurontin) 300 mg PO TID@0600,1400,2100 [facility] Last Admin: 08/13/17 21:46 Dose: 300 mg Guaifenesin (Mucinex) 1,200 mg PO Q12HR [facility] Last Admin: 08/13/17 21:47 Dose: 1,200 mg Heparin Sodium (Porcine) (Heparin) 0 unit IV PER PROTOCOL PRN; Protocol PRN Reason: Low PTT Last Admin: 08/13/17 14:59 Dose: 2,265 unit Heparin Sodium/Sodium Chloride (25,000 unit/ Sodium Chloride) 500 mls @ 10.88 mls/hr IV .Q24H [facility]; 12 UNITS/KG/HR PRN Reason: Protocol Last Titration: 08/13/17 17:00 Dose: 0 units/kg/hr, 0 mls/hr Ibuprofen (Motrin) 400 mg PO Q6HR PRN PRN Reason: Mild Pain Last Admin: 08/13/17 17:03 Dose: 400 mg Magnesium Hydroxide (Milk Of Magnesia) 2,400 mg PO DAILY PRN PRN Reason: Constipation Metoprolol Tartrate (Lopressor) 25 mg PO BID@0800,2100 [facility] Last Admin: 08/13/17 21:47 Dose: 25 mg Nitroglycerin (Nitrostat) 0.4 mg SUBLINGUAL Q5M PRN PRN Reason: Chest Pain Nystatin (Mycostatin Oral Susp) 500,000 unit PO QID@00,06,,18 [facility] Last Admin: 08/13/17 17:05 Dose: 500,000 unit Ondansetron HCl (Zofran) 4 mg PO Q8HR PRN PRN Reason: Nausea Pantoprazole Sodium (Protonix) 40 mg PO AC-BID [facility] Last Admin: 08/13/17 17:04 Dose: 40 mg Potassium Chloride (K-Dur 20) 40 meq PO DAILY@1700 [facility] Last Admin: 08/13/17 17:04 Dose: 40 meq Tramadol HCl (Ultram) 50 mg PO BID@0800,2100 [facility] Last Admin: 08/13/17 21:47 Dose: 50 mg Home Medications Medication Instructions Recorded Confirmed Type ALPRAZolam [Xanax] 0.25 mg PO DAILY PRN #30 tab 07/31/17 08/12/17 Rx Bisacodyl [Dulcolax] 10 mg RECTAL DAILY PRN supp 07/31/17 08/12/17 Rx Ergocalciferol [Vitamin D2 50,000 unit PO Q72H cap 07/31/17 08/12/17 Rx (DRISDOL)] Ipratropium-Albuterol Nebulize 3 ml INHALATION RT-QID ampul.neb 07/31/17 Rx [Duoneb 0.5 mg-3 mg/3 ml Soln] Pantoprazole [Protonix] 40 mg PO AC-BID tablet. 07/31/17 08/12/17 Rx Amitriptyline HCl [Elavil] 25 mg PO HS@209908/04/17 08/12/17 History Darbepoetin Javy [Aranesp] 40 mcg SQ TU@0800 08/04/17 08/12/17 History Gabapentin [Neurontin] 300 mg PO TID@0600,1400,209908/04/17 08/12/17 History Heparin Sodium,Porcine [Heparin 5,000 unit SQ TID@0600,1400,2100 08/04/17 History Sodium] Ipratropium-Albuterol Nebulize 3 ml IH RT-Q1H PRN 08/04/17 08/12/17 History [Duoneb 0.5 mg-3 mg/3 ml Soln] Magnesium Hydroxide [Milk of 2,400 mg PO DAILY PRN 08/04/17 08/12/17 History Magnesia] Metoprolol Tartrate [Lopressor] 12.5 mg PO BID@0800,2100 08/04/17 08/12/17 History Na Phos,M-B/Na Phos,Di-Ba [Fleet 133 ml RECTAL DAILY PRN 08/04/17 08/12/17 History Adult] Nystatin 100,000 Unit/ml Susp 5 ml PO QID@00,06,12,18 08/04/17 08/12/17 History [Mycostatin Oral Susp] Ondansetron [Zofran] 4 mg PO Q8HR PRN 08/04/17 08/12/17 History Potassium Chloride [Klor-Con 20] 40 meq PO DAILY@1700 08/04/17 08/12/17 History traMADol HCL [Ultram] 50 mg PO BID@0800,2100 08/04/17 08/12/17 History Lactose-Reduced Food [Ensure Plus] 1 can PO TID 08/12/17 08/12/17 History Levofloxacin [Levaquin] 500 mg PO ONCE 08/12/17 08/12/17 History guaiFENesin [Mucinex] 600 mg PO BID 08/12/17 08/12/17 History Allergies Allergy/AdvReac Type Severity Reaction Status Date / Time acetaminophen [From Tylenol] AdvReac can't take Verified 08/12/17 09:57 tylenol due to history pregabalin [From Lyrica] AdvReac Unknown Verified 08/12/17 09:57 Physical Exam Vitals: Vital Signs Temp Pulse Pulse Resp BP Pulse Ox 08/13/17 17:27 80 08/13/17 17:13 78 100 08/13/17 16:00 97.8 F 72 16 101/58 99 08/13/17 15:53 20 08/13/17 12:00 99.6 F 100 20 104/50 95 08/13/17 11:13 100 08/13/17 11:05 96 08/13/17 08:00 100.6 F H 120 H 22 168/70 94 L 08/13/17 07:44 108 H 04/05/18 07:37 92 L 08/13/17 07:35 100 08/13/17 04:00 100.4 F H 110 H 20 122/61 100 08/13/17 00:40 92 08/13/17 00:29 92 08/13/17 00:00 99.0 F 93 16 119/65 97 Intake and Output 08/13/17 08/13/17 08/14/17 14:59 22:59 06:59 Intake Total 105.848 25.823 Output Total 400 350 Balance -294.152 -324.177 Intake: Intake, IV Titration 105.848 25.823 Amount Heparin Sod,Pork in 0.45% 105.848 25.823 NaCl 25,000 unit In 0.45 % NaCl 1 500ml.bag @ 12 UNITS/KG/HR 10.88 mls/hr IV .Q24H [facility] Rx#: [id number] Oral 0 Output: Urine 400 350 Other: Weight 45.359 kg 71-year-old woman with a small and slight build is in no distress, receiving hemodialysis HEENT: Anicteric conjunctiva are pink and moist nasal mucosa grossly intact without significant lesions, there is no thrush. Neck: The neck is supple without significant lymphadenopathy or thyromegaly. Lungs: Good bilateral air entry without significant crackles or wheezing. There is no significant bronchial sounds. There is no egophony or dullness. Heart: Regular rate and rhythm with an audible S1-S2, no S3 no S4. There is no significant murmur click or rub, PMI was nondisplaced. Abdomen: Positive bowel sounds soft and nontender without palpable masses or organomegaly. There was no guarding or rebound. Extremities: The upper extremities have excellent pulses they are symmetric, no significant petechiae or telangiectasia. No splinter hemorrhages were noted. There is some lower extremity edema pulses are 2+ and symmetric Neuro: Awake alert oriented to person seems comfortable and there are no noted acute neurological deficits Results CBC & Chem 7: 08/13/17 02:35 08/13/17 02:35 Labs: Abnormal Lab Results - Last 24 Hours (Table) 08/13/17 08/13/17 08/13/17 Range/Units 02:35 02:35 02:35 RBC 2.74 L (3.80-5.40) m/uL Hgb 7.8 L (11.4-16.0) gm/dL Hct 27.2 L (34.0-46.0) % MCHC 28.7 L (31.0-37.0) g/dL APTT 41.8 H (22.0-30.0) sec Creatinine 1.81 H (0.52-1.04) mg/dL Calcium 7.9 L (8.4-10.2) mg/dL Phosphorus 4.7 H (2.5-4.5) mg/dL 08/13/17 08/13/17 08/13/17 Range/Units 10:36 16:07 17:59 RBC (3.80-5.40) m/uL Hgb (11.4-16.0) gm/dL Hct (34.0-46.0) % MCHC (31.0-37.0) g/dL APTT 39.3 H >200.0 H* 110.7 H* (22.0-30.0) sec Creatinine (0.52-1.04) mg/dL Calcium (8.4-10.2) mg/dL Phosphorus (2.5-4.5) mg/dL 08/13/17 Range/Units 20:47 RBC (3.80-5.40) m/uL Hgb (11.4-16.0) gm/dL Hct (34.0-46.0) % MCHC (31.0-37.0) g/dL APTT 32.8 H (22.0-30.0) sec Creatinine (0.52-1.04) mg/dL Calcium (8.4-10.2) mg/dL Phosphorus (2.5-4.5) mg/dL Microbiology - Last 24 Hours (Table) 08/12/17 09:06 Blood Culture - Preliminary Blood No Growth after 24 hours Laboratory Results WBC 5.4 k/uL (3.8-10.6) 08/13/17 02:35 RBC 2.74 m/uL (3.80-5.40) L 08/13/17 02:35 Hgb 7.8 gm/dL (11.4-16.0) L 08/13/17 02:35 Hct 27.2 % (34.0-46.0) L 08/13/17 02:35 MCV 99.3 fL (80.0-100.0) 08/13/17 02:35 MCH 28.5 pg (25.0-35.0) 08/13/17 02:35 MCHC 28.7 g/dL (31.0-37.0) L 08/13/17 02:35 RDW 14.5 % (11.5-15.5) 08/13/17 02:35 Plt Count 239 k/uL (150-450) 08/13/17 02:35 Neutrophils % 63 % 08/13/17 02:35 Neutrophils % (Manual) 72 % 08/12/17 15:02 Lymphocytes % 21 % 08/13/17 02:35 Lymphocytes % (Manual) 18 % 08/12/17 15:02 Monocytes % 6 % 08/13/17 02:35 Monocytes % (Manual) 5 % 08/12/17 15:02 Eosinophils % 6 % 08/13/17 02:35 Eosinophils % (Manual) 5 % 08/12/17 15:02 Basophils % 1 % 08/13/17 02:35 Neutrophils # 3.4 k/uL (1.3-7.7) 08/13/17 02:35 Neutrophils # (Manual) 2.95 k/uL (1.3-7.7) 08/12/17 15:02 Lymphocytes # 1.1 k/uL (1.0-4.8) 08/13/17 02:35 Lymphocytes # (Manual) 0.74 k/uL (1.0-4.8) L 08/12/17 15:02 Monocytes # 0.3 k/uL (0-1.0) 08/13/17 02:35 Monocytes # (Manual) 0.21 k/uL (0-1.0) 08/12/17 15:02 Eosinophils # 0.3 k/uL (0-0.7) 08/13/17 02:35 Eosinophils # (Manual) 0.21 k/uL (0-0.7) 08/12/17 15:02 Basophils # 0.1 k/uL (0-0.2) 08/13/17 02:35 Nucleated RBCs 0 /100 WBC (0-0) 08/12/17 15:02 Manual Slide Review Performed 08/12/17 15:02 Hypochromasia Marked 08/13/17 02:35 Hypochromasia (manual) Present 08/12/17 15:02 Anisocytosis (manual) Present 08/12/17 15:02 Macrocytosis Slight 08/13/17 02:35 PT 12.6 sec (9.0-12.0) H 08/12/17 16:56 INR 1.3 (<1.2) H 08/12/17 16:56 APTT 32.8 sec (22.0-30.0) H 08/13/17 20:47 D-Dimer 1.89 mg/L FEU (<0.60) H 08/12/17 09:06 VBG pH 7.42 (7.31-7.41) H 08/12/17 09:33 VBG pCO2 48 mmHg (37-51) 08/12/17 09:33 VBG HCO3 30 mmol/L (24-28) H 08/12/17 09:33 Sodium 144 mmol/L (137-145) 08/13/17 02:35 Potassium 3.8 mmol/L (3.5-5.1) 08/13/17 02:35 Chloride 103 mmol/L (98-107) 08/13/17 02:35 Carbon Dioxide 27 mmol/L (22-30) 08/13/17 02:35 Anion Gap 14 mmol/L 08/13/17 02:35 BUN 8 mg/dL (7-17) 08/13/17 02:35 Creatinine 1.81 mg/dL (0.52-1.04) H 08/13/17 02:35 Est GFR (CKD-EPI)AfAm 32 (>60 ml/min/1.73 sqM) 08/13/17 02:35 Est GFR (CKD-EPI)NonAf 27 (>60 ml/min/1.73 sqM) 08/13/17 02:35 Glucose 76 mg/dL (74-99) 08/13/17 02:35 Calcium 7.9 mg/dL (8.4-10.2) L 08/13/17 02:35 Phosphorus 4.7 mg/dL (2.5-4.5) H 08/13/17 02:35 Total Bilirubin 0.3 mg/dL (0.2-1.3) 08/12/17 09:06 AST 9 U/L (14-36) L 08/12/17 09:06 ALT 31 U/L (9-52) 08/12/17 09:06 Alkaline Phosphatase 67 U/L (38-126) 08/12/17 09:06 Total Creatine Kinase 40 U/L (30-135) 08/12/17 21:10 CK-MB (CK-2) 3.4 ng/mL (0.0-2.4) H* 08/12/17 21:10 CK-MB (CK-2) Rel Index 8.5 08/12/17 21:10 Troponin I 0.040 ng/mL (0.000-0.034) H* 08/12/17 21:10 NT-Pro-B Natriuret Pep 34068 pg/mL 08/13/17 02:35 Total Protein 5.8 g/dL (6.3-8.2) L 08/12/17 09:06 Albumin 2.9 g/dL (3.5-5.0) L 08/12/17 09:06 Triglycerides 97 mg/dL (<150) 08/13/17 02:35 Cholesterol 122 mg/dL (<200) 08/13/17 02:35 LDL Cholesterol, Calc 46 mg/dL (0-99) 08/13/17 02:35 HDL Cholesterol 57 mg/dL (40-60) 08/13/17 02:35 Microbiology 08/12/17 09:06 Blood Blood Culture - Preliminary No Growth after 24 hours Assessment and Plan (1) Chest pain Current Visit: Yes Status: Acute Code(s): R07.9 - CHEST PAIN, UNSPECIFIED SNOMED Code(s): 78321891 (2) Hypoxia Current Visit: Yes Status: Acute Code(s): R09.02 - HYPOXEMIA SNOMED Code(s ): 070490920 (3) Non-caseating granuloma Narrative/Plan: 71-year-old female presents to Hospital from the [facility] care facility with the sudden onset of increasing chest pain and shortness of breath. She has end-stage renal disease receiving hemodialysis. She is evidence of bilateral pleural effusions and pulmonary critical care is contemplating thoracentesis to improve her shortness of breath. At admission the patient did have evidence of 1 L of urine in her bladder and this was drained with a catheter, evidence of a markedly abnormal urinalysis and urine culture and blood culture are in progress. Antibiotic therapy with Rocephin is being utilized at this time pending further culture data. She clinically is showing improvement but was having some difficulty with hemodialysis due to relative hypotension. Her chest pain is improved. She likely was having sepsis from the infection of the urinary system as well as an obstructive uropathy from bladder outlet dysfunction. She is feeling somewhat better. As noted she did have a significant noncaseating granulomas in the lung at the time of her resection. The patient has had PCR probes performed at an outside academic center that were negative for Mycobacterium tuberculosis as well as non -tuberculosis mycobacterial. This does not exclude mycobacterial disease. When the patient is more stable a repeat bronchoscopy would be indicated for deep specimens to be obtained from the lung, these need to be bacterial cultures for Mycobacterium. This could then help guide the course of treatment. Current Visit: Yes Status: Acute Code(s): L92.9 - GRANULOMATOUS DISORDER OF THE SKIN, SUBCU, UNSP SNOMED Code(s): 184491632
[2017-08-14] MEDS: IPRATROPIUM-ALBUTEROL 3 ML NEB INHALATION SCH ×7 (01:03→23:46)
[2017-08-14 05:55] LABS: Basophils # (A) 0.1 k/uL (0-0.2); Basophils % (A) 1 %; Eosinophils # (A) 0.2 k/uL (0-0.7); Eosinophils % (A) 3 %; HCT 26.9 % (34.0-46.0); HGB 7.8 gm/dL (11.4-16.0); Hypochromasia Marked; Lymphocytes # (A) 1.1 k/uL (1.0-4.8); Lymphocytes % (A) 18 %; MCH 28.3 pg (25.0-35.0); MCHC 29.1 g/dL (31.0-37.0); Mean Platelet Volume 7.5; Monocytes # (A) 0.2 k/uL (0-1.0); Monocytes % (A) 3 %; Neutrophils # (A) 4.3 k/uL (1.3-7.7); Neutrophils % (A) 73 %; Platelet Count 220 k/uL (150-450); RBC 2.77 m/uL (3.80-5.40); RDW 14.2 % (11.5-15.5); WBC 5.9 k/uL (3.8-10.6)
[2017-08-14] MEDS: PANTOPRAZOLE 40 MG TABLET PO SCH ×2 (06:07→17:32)
[2017-08-14] MEDS: NYSTATIN 100,000 UNIT/ML SUSP 500,000 UNIT/5 ML CUP PO SCH ×4 (06:07→23:42)
[2017-08-14] MEDS: GABAPENTIN 300 MG CAP PO SCH ×3 (06:07→20:41)
[2017-08-14 06:19] LABS: Calcium 8.1 mg/dL (8.4-10.2); Potassium 3.4 mmol/L (3.5-5.1)
[2017-08-14] MEDS: HEPARIN SODIUM,PORCINE 5,000 UNIT/ML 1 ML VIAL IV PRN (06:21)
[2017-08-14] MEDS: traMADol 50 MG TAB PO SCH ×2 (09:07→20:41)
[2017-08-14] MEDS: FUROSEMIDE 10 MG/ML 10 ML VIAL IV SCH ×2 (09:08→20:42)
[2017-08-14] MEDS: ASPIRIN 81 MG PO SCH (09:08)
[2017-08-14] MEDS: METOPROLOL TARTRATE 25 MG TAB PO SCH ×2 (09:09→20:41)
[2017-08-14] MEDS: guaiFENesin 600 MG TABLET.ER PO SCH ×2 (09:10→20:42)
--- NOTE | 2017-08-14 09:28 | P.PN ---
Subjective Patient is seen in follow-up for acute kidney injury, hemodialysis dependent. Patient presented with dyspnea and was noted to be in respiratory distress. She was noted to have bilateral pleural effusions. She did undergo hemodialysis yesterday with 1 L ultrafiltration. She is also noted to have urinary retention with over 1 L drained when Green catheter was inserted. Her urine output is good. She is currently maintained on Lasix 60 mg IV twice daily. Overall her dyspnea is improved. Scheduled for thoracentesis today. Vital signs are stable. General: The patient appeared well nourished and normally developed. HEENT: Head exam is unremarkable. Neck is without jugular venous distension. LUNGS: Lungs are clear to auscultation and percussion. Breath sounds decreased. HEART: Rate and Rhythm are regular. First and second heart sounds normal. No murmurs, rubs or gallops. ABDOMEN: Abdominal exam reveals normal bowel sounds. Non-tender and non- distended. No evidence of peritonitis. EXTREMITITES: No clubbing, cyanosis, or edema. Objective - Vital Signs Vital signs: Vital Signs Temp 98 F 08/14/17 08:00 Pulse 80 08/14/17 08:30 Resp 20 08/14/17 08:00 BP 104/54 08/14/17 08:00 Pulse Ox 96 08/14/17 08:00 Intake & Output 08/13/17 08/14/17 08/14/17 18:59 06:59 18:59 Intake Total 131.671 274.434 Output Total 400 350 500 Balance -268.329 -75.566 -500 Weight 45.359 kg 46 kg Intake: Intake, IV Titration 131.671 74.434 Amount Heparin Sod,Pork in 0.45% 131.671 74.434 NaCl 25,000 unit In 0.45 % NaCl 1 500ml.bag @ 12 UNITS/KG/HR 10.88 mls/hr IV .Q24H [facility] Rx#: [id number] Oral 0 200 Output: Urine 400 350 500 Uretheral (Green) 500 Other: Voiding Method Bedpan Indwelling Catheter # Voids 2 # Bowel Movements 2 - Labs CBC & Chem 7: 08/14/17 05:24 08/14/17 05:24 Labs: Abnormal Lab Results - Last 24 Hours (Table) 08/13/17 08/13/17 08/13/17 Range/Units 02:35 02:35 10:36 RBC (3.80-5.40) m/uL Hgb (11.4-16.0) gm/dL Hct (34.0-46.0) % MCHC (31.0-37.0) g/dL APTT 39.3 H (22.0-30.0) sec Potassium (3.5-5.1) mmol/L Creatinine (0.52-1.04) mg/dL Calcium (8.4-10.2) mg/dL Phosphorus 4.7 H (2.5-4.5) mg/dL Iron 26 L (50-170) ug/dL TIBC 212 L (228-460) ug/dL Ferritin 463.9 H (10.0-291.0) ng/mL 08/13/17 08/13/17 08/13/17 Range/Units 16:07 17:59 20:47 RBC (3.80-5.40) m/uL Hgb (11.4-16.0) gm/dL Hct (34.0-46.0) % MCHC (31.0-37.0) g/dL APTT >200.0 H* 110.7 H* 32.8 H (22.0-30.0) sec Potassium (3.5-5.1) mmol/L Creatinine (0.52-1.04) mg/dL Calcium (8.4-10.2) mg/dL Phosphorus (2.5-4.5) mg/dL Iron (50-170) ug/dL TIBC (228-460) ug/dL Ferritin (10.0-291.0) ng/mL 08/14/17 08/14/17 08/14/17 Range/Units 05:24 05:24 05:24 RBC 2.77 L (3.80-5.40) m/uL Hgb 7.8 L (11.4-16.0) gm/dL Hct 26.9 L (34.0-46.0) % MCHC 29.1 L (31.0-37.0) g/dL APTT 39.7 H (22.0-30.0) sec Potassium 3.4 L (3.5-5.1) mmol/L Creatinine 1.10 H (0.52-1.04) mg/dL Calcium 8.1 L (8.4-10.2) mg/dL Phosphorus (2.5-4.5) mg/dL Iron (50-170) ug/dL TIBC (228-460) ug/dL Ferritin (10.0-291.0) ng/mL Microbiology - Last 24 Hours (Table) 08/12/17 09:06 Blood Culture - Preliminary Blood No Growth after 24 hours Assessment and Plan Plan: Assessment: #1. Acute kidney injury, hemodialysis dependent on a Thursday schedule from nonrecovered ATN in July 2017. Last hemodialysis on August 13 with 1 L ultrafiltration. #2. Dyspnea related to fluid overload. Also concern for pneumonia. No evidence of DVTs. #3. Status post left upper lobe lobectomy and lymph node dissection in July 2017 due to a cavitary lesion. #4. Anemia. Iron deficiency noted. #5. Urinary retention status post Green catheter placement. #6. Bilateral pleural effusions. Pulmonology following. Potential thoracentesis today. #7. Diastolic CHF with moderate pulmonary hypertension. #8. Hypokalemia secondary to diuresis. Plan: Maintain Lasix 60 mg IV twice daily. Maintain Green catheter. Ferrlecit 125 mg IV daily for 3 days. First dose today. Maintain Aranesp. Discontinued Fleet enemas. Replace potassium. 40 mg once today. Check labs tomorrow. Depending on her volume status and renal function, will assess the need for renal replacement therapy. Follow-up cultures. Cultures were also drawn from her dialysis catheter yesterday.
[2017-08-14] MEDS: SODIUM FERRIC GLUCONAT-SUCROSE 125 MG in SODIUM CHLORIDE 0.9% 100 ML IVPB SCH (10:00)
--- NOTE | 2017-08-14 10:32 | CDI ---
Last Revision, April 2017 Documentation Clarification Form Date: 08/14/17 1021 From: Tanisha Almanza RN, CCDS Admit Date: 08/12/2017 10:31:00 AM Patient Name: Laura Jain Visit Number: [id number] ATTENTION: The Clinical Documentation Specialists (CDI) and [facility] Coding Staff appreciate your assistance in clarifying documentation. Please respond to the clarification below the line at the bottom and electronically sign. The CDI & [facility] Coding staff will review the response and follow-up if needed. Please note: Queries are made part of the Legal Health Record. If you have any questions, please contact the author of this message via ITS. Dr. Forrest Martinez/ Sophia George DNP History/Risk Factors: Nonrecovered ATN w NOY w HD, HTN, Left upper lobectomy, COPD Clinical Indicators: 08/14 Nephrology Progress Note: "Diastolic CHF with moderate pulmonary HTN." VS/Pulse OX: Temp 98, hr 85, RR 20, B/P 110/55, Spo2 100% 6l NC BNP: 16,300 Echocardiogram Results: EF 60-65% Chest X Ray: moderate left pleural effusion Treatment: Lasix 60 mg IVP Q 12 hrs In your professional opinion, can you please clarify the acuity and type of CHF if known? Diastolic Heart Failure: Acute Chronic Acute on Chronic Unable to Determine Other, please specify Please continue to document in your progress notes and discharge summary in order to capture severity of illness and risk of mortality. Include clinical findings that support your diagnosis. MTDD
[2017-08-14] MEDS: ALPRAZolam 0.25 MG TAB PO PRN ×2 (10:33→14:22)
--- NOTE | 2017-08-14 10:53 | CDI ---
Last Revision, April 2017 Documentation Clarification Form Date: 08/14/17 1049 From: Tanisha Almanza RN, CCDS Admit Date: 08/12/2017 10:31:00 AM Patient Name: Laura Jain Visit Number: [id number] ATTENTION: The Clinical Documentation Specialists (CDI) and [facility] Coding Staff appreciate your assistance in clarifying documentation. Please respond to the clarification below the line at the bottom and electronically sign. The CDI & [facility] Coding staff will review the response and follow-up if needed. Please note: Queries are made part of the Legal Health Record. If you have any questions, please contact the author of this message via ITS. Dr. Edenilson Bobby Pneumonia was documented in the notes and requires further specificity. History/Risk Factors: Recent hospitalization, lives in [facility], recent LILLIAN lobectomy GERD Clinical Indicators: 4/5 Attending Progress Note: "left-sided pneumonia. Patient is having some fever and very congested chest." 4/5 Nephrology Consult: "There was also concern for pneumonia for which she is maintained on antibiotics." WBC: 4.1/5.4/5.9 Left Shift: - CXR: "Continued moderate left pleural effusion with adjacent atelectasis and or consolidation." 4/5 Pulmonary Lung/Breathing assessment: "LUNGS: Diminished in the bilateral posterior bases." Treatment: Antibiotics: Zosyn 3.375 gm IVPB Q 8 hrs, Rocephin 1Gm IVP Q 24 hrs O2: 5-6L NC Breathing TX: Duoneb QID and Q 4 hrs PRN SOB In order to capture the severity of condition, please clarify if the condition signifies and you are treating for: Aspiration Pneumonia, identify if: Due to solids or liquids Bacterial Pneumonia, specify causal organism (if known) Gram Negative Pneumonia Due to Strep Due to Staph Due to E. coli Other bacteria (please specify) Viral Pneumonia, specify casual organism (if known) Healthcare Acquired Pneumonia/Pneumonia, unspecified Other, please specify Unable to determine Please continue to document in your progress notes and discharge summary in order to capture severity of illness and risk of mortality. Include clinical findings that support your diagnosis. MTDD
[2017-08-14] MEDS ORDERED: LIDOCAINE 2% INJ 20 MG/ML (20 ML MDV) ONE (11:36)
--- NOTE | 2017-08-14 11:50 | P.PN ---
Subjective Progress Note Date: 08/14/17 This is a 71-year-old female with history of Crohn's disease, anemia, thrombocytopenia, acute on chronic kidney injury undergoing dialysis, who had a cavitating left upper lobe mass for which the patient underwent left resection and lobectomy. She was discharged to [facility], history was obtained actually from the who is at bedside. She apparently developed chest pain this morning, and was found to be hypotensive, mild shortness of breath, for this reason she was brought to the hospital for further evaluation. EKG on arrival here showed a normal sinus rhythm with nonspecific ST-T wave changes in the inferior and anterior leads. Repeat EKG shows normal sinus rhythm with continued changes in the inferior leads. Chest x-ray shows moderate left-sided pleural effusion with adjacent atelectasis and/or consolidation. Repeat chest x -ray shows moderate left pleural effusion. Ultrasound of the chest, right side was marked for possible thoracentesis, left side was also marked. Right side shows a pleural effusion of 5.8 cm left side 5.7 cm. Blood pressure 110/60 with a heart rate in the 80s, 98% on 6 L of oxygen. White blood cell count 5.3 , hemoglobin 8.2, platelet count 243. D-dimer 1.89. Sodium 142, potassium 4.2 , BUN 5, creatinine 1.5. Troponin 0.032. 08/14/2017 Patient was seen and examined this morning, slightly sleepy but much more alert overall. Still complaining of mild dyspnea . Echocardiogram with Doppler study was performed which revealed an ejection fraction of 60-65%. Troponins 0.032, 0.035, 0.040. BNP level did come back at 16,300, and patient continues to be on IV Lasix. Repeat chest x-ray was performed this morning with his hip pending. Objective - Vital Signs Vital signs: Vital Signs Temp 98 F 08/14/17 08:00 Pulse 80 08/14/17 08:30 Resp 20 08/14/17 08:00 BP 104/54 08/14/17 08:00 Pulse Ox 96 08/14/17 08:00 Intake & Output 08/13/17 08/14/17 08/14/17 18:59 06:59 18:59 Intake Total 131.671 274.434 180 Output Total 400 350 500 Balance -268.329 -75.566 -320 Weight 45.359 kg 46 kg Intake: Intake, IV Titration 131.671 74.434 Amount Heparin Sod,Pork in 0.45% 131.671 74.434 NaCl 25,000 unit In 0.45 % NaCl 1 500ml.bag @ 12 UNITS/KG/HR 10.88 mls/hr IV .Q24H CATIA Rx#: [id number] Oral 0 200 180 Output: Urine 400 350 500 Uretheral (Green) 500 Other: Voiding Method Bedpan Bedpan Indwelling Catheter Indwelling Catheter # Voids 2 # Bowel Movements 2 - Exam PHYSICAL EXAMINATION: HEENT: Head is atraumatic, normocephalic. Pupils equal, round. Neck is supple. There is no elevated jugular venous pressure. HEART EXAMINATION: Heart S1, S2 normal. No murmur or gallop heard. CHEST EXAMINATION: Lungs reveal diminished air entry to bilateral bases. ABDOMEN: Soft, nontender. Bowel sounds are heard. No organomegaly noted. EXTREMITIES: 2+ peripheral pulses with no evidence of peripheral edema and no calf tenderness noted. NEUROLOGIC patient is awake, sleepy, alert and oriented -3. . - Labs CBC & Chem 7: 08/14/17 05:24 08/14/17 05:24 Labs: Abnormal Lab Results - Last 24 Hours (Table) 08/13/17 08/13/17 08/13/17 Range/Units 02:35 16:07 17:59 RBC (3.80-5.40) m/uL Hgb (11.4-16.0) gm/dL Hct (34.0-46.0) % MCHC (31.0-37.0) g/dL APTT >200.0 H* 110.7 H* (22.0-30.0) sec Potassium (3.5-5.1) mmol/L Creatinine (0.52-1.04) mg/dL Calcium (8.4-10.2) mg/dL Iron 26 L (50-170) ug/dL TIBC 212 L (228-460) ug/dL Ferritin 463.9 H (10.0-291.0) ng/mL 08/13/17 08/14/17 08/14/17 Range/Units 20:47 05:24 05:24 RBC 2.77 L (3.80-5.40) m/uL Hgb 7.8 L (11.4-16.0) gm/dL Hct 26.9 L (34.0-46.0) % MCHC 29.1 L (31.0-37.0) g/dL APTT 32.8 H (22.0-30.0) sec Potassium 3.4 L (3.5-5.1) mmol/L Creatinine 1.10 H (0.52-1.04) mg/dL Calcium 8.1 L (8.4-10.2) mg/dL Iron (50-170) ug/dL TIBC (228-460) ug/dL Ferritin (10.0-291.0) ng/mL 08/14/17 Range/Units 05:24 RBC (3.80-5.40) m/uL Hgb (11.4-16.0) gm/dL Hct (34.0-46.0) % MCHC (31.0-37.0) g/dL APTT 39.7 H (22.0-30.0) sec Potassium (3.5-5.1) mmol/L Creatinine (0.52-1.04) mg/dL Calcium (8.4-10.2) mg/dL Iron (50-170) ug/dL TIBC (228-460) ug/dL Ferritin (10.0-291.0) ng/mL Microbiology - Last 24 Hours (Table) 08/12/17 09:06 Blood Culture - Preliminary Blood No Growth after 48 hours Assessment and Plan Plan: Assessment and plan #1 diastolic congestive heart failure acute on chronic. 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 #4 chronic anemia #5 Crohn's disease #6 depression #7 febrile illness, blood cultures negative 2 Plan Cardiology's perspective, patient's echocardiogram with Doppler study revealed a normal left ventricular systolic function. She continues to be on IV diuretics as per nephrology. We will follow her along with you now on an as- needed basis only, please don't hesitate to call with any questions. DNP note has been reviewed, I agree with a documented findings and plan of care. Patient was seen and examined.
--- NOTE | 2017-08-14 12:52 | P.PN ---
Subjective Progress Note Date: 08/14/17 Principal diagnosis: Moderate left-sided pleural effusion This is a 71-year-old white female familiar to my service, patient was recently inpatient, and she underwent left upper lobectomy for what seems to be a necrotizing mass, however pathology ruled out malignancy, and it showed basically possible old granulomatous infection, cultures were pending. [place] that the patient may have had atypical mycobacterial infection involving the left upper lobe. Patient was eventually discharged to [facility], and she has been receiving dialysis for acute on chronic renal failure. Patient presented to the ER this morning complaining of sudden onset of shortness of breath, along with severe chest pain and she was noted to be hypotensive. Upon arrival to the ER, patient had an EKG showing normal sinus rhythm with nonspecific ST and T-wave changes in the inferior and anterior leads. Chest x-ray showed small to moderate left-sided pleural effusion ultrasound showed a 5.5 cm pocket in the left pleural space, and it also showed a right sided pleural effusion. Patient was admitted, and this consult was initiated. Patient has been compliant with her dialysis, and she did receive her dialysis yesterday. D-dimer was 1.89, and troponin was 0.032. Hemoglobin was 7.1. Patient was admitted, placed on heparin, seen by cardiology, and this consult was initiated. The patient herself is a poor historian, has underlying dementia, but most of the history was obtained from her . Patient denies any fever no chills no hemoptysis, presently no chest pain, and no shortness of breath at present during my evaluation. It was felt that the patient had atypical chest pain, and after reviewing her ultrasound of the chest , I recommended repeat chest x-ray after hemodialysis, and if the fluid remains unchanged in the left pleural space, may consider thoracentesis. Which will be diagnostic and therapeutic at the same time. Presently the patient is in no form of respiratory distress during my evaluation. The patient is seen again today 08/13/2017 in follow-up on the selective care unit. She is currently awake and alert. She is still somewhat dyspneic on exertion. She is requiring 6 L high flow nasal cannula to maintain O2 saturations in the 90s. Temperature 99.6. She is receiving hemodialysis. The plan was for 2.5 L to be removed however her blood pressure is not allowing that M probably 1 L all be removed. We'll plan for chest x-ray today shortly after dialysis to evaluate the pleural effusion. Blood cultures revealing no growth. Hemoglobin 7.8. White count 5.4. White count 1.81. BNP 16,300. The patient is seen again today 08/14/2017 in follow-up on the selective care unit. She continues with a moderate left-sided pleural effusion. The plan is for thoracentesis today. The heparin is currently on hold. She denies any worsening shortness of breath, cough or congestion. She is still requiring 5 L/ m per nasal cannula to maintain O2 saturations in the 90s. She was intolerant of much dialysis yesterday due to hypotension. Less than a liter was removed. Blood cultures reveal no growth. White count 5.9. Hemoglobin 7.8. Creatinine 1.10. Objective - Vital Signs Vital signs: Vital Signs Temp 98 F 08/14/17 08:00 Pulse 80 08/14/17 11:55 Resp 20 08/14/17 08:00 BP 104/54 08/14/17 08:00 Pulse Ox 96 08/14/17 08:00 Intake & Output 08/13/17 08/14/17 08/14/17 18:59 06:59 18:59 Intake Total 131.671 274.434 180 Output Total 400 350 500 Balance -268.329 -75.566 -320 Weight 45.359 kg 46 kg Intake: Intake, IV Titration 131.671 74.434 Amount Heparin Sod,Pork in 0.45% 131.671 74.434 NaCl 25,000 unit In 0.45 % NaCl 1 500ml.bag @ 12 UNITS/KG/HR 10.88 mls/hr IV .Q24H [facility]IA Rx#: [id number] Oral 0 200 180 Output: Urine 400 350 500 Uretheral (Green) 500 Other: Voiding Method Bedpan Bedpan Indwelling Catheter Indwelling Catheter # Voids 2 # Bowel Movements 2 - Exam GENERAL EXAM: Frail, weak. Alert, fairly comfortable in no apparent distress. HEAD: Normocephalic. EYES: Normal reaction of pupils, equal size. NOSE: Clear with pink turbinates. THROAT: No erythema or exudates. NECK: No masses, no JVD. CHEST: No chest wall deformity. LUNGS: Diminished in the bilateral posterior bases more so on the left. CVS: S1 and S2 normal with no audible murmur, regular rhythm. ABDOMEN: No hepatosplenomegaly, normal bowel sounds, no guarding or rigidity. SPINE: No scoliosis or deformity SKIN: No rashes CENTRAL NERVOUS SYSTEM: No focal deficits, tone is normal in all 4 extremities. EXTREMITIES: There is no peripheral edema. No clubbing, no cyanosis. Peripheral pulses are intact.m - Labs CBC & Chem 7: 08/14/17 05:24 08/14/17 05:24 Labs: Abnormal Lab Results - Last 24 Hours (Table) 08/13/17 08/13/17 08/13/17 Range/Units 02:35 16:07 17:59 RBC (3.80-5.40) m/uL Hgb (11.4-16.0) gm/dL Hct (34.0-46.0) % MCHC (31.0-37.0) g/dL APTT >200.0 H* 110.7 H* (22.0-30.0) sec Potassium (3.5-5.1) mmol/L Creatinine (0.52-1.04) mg/dL Calcium (8.4-10.2) mg/dL Iron 26 L (50-170) ug/dL TIBC 212 L (228-460) ug/dL Ferritin 463.9 H (10.0-291.0) ng/mL 08/13/17 08/14/17 08/14/17 Range/Units 20:47 05:24 05:24 RBC 2.77 L (3.80-5.40) m/uL Hgb 7.8 L (11.4-16.0) gm/dL Hct 26.9 L (34.0-46.0) % MCHC 29.1 L (31.0-37.0) g/dL APTT 32.8 H (22.0-30.0) sec Potassium 3.4 L (3.5-5.1) mmol/L Creatinine 1.10 H (0.52-1.04) mg/dL Calcium 8.1 L (8.4-10.2) mg/dL Iron (50-170) ug/dL TIBC (228-460) ug/dL Ferritin (10.0-291.0) ng/mL 08/14/17 Range/Units 05:24 RBC (3.80-5.40) m/uL Hgb (11.4-16.0) gm/dL Hct (34.0-46.0) % MCHC (31.0-37.0) g/dL APTT 39.7 H (22.0-30.0) sec Potassium (3.5-5.1) mmol/L Creatinine (0.52-1.04) mg/dL Calcium (8.4-10.2) mg/dL Iron (50-170) ug/dL TIBC (228-460) ug/dL Ferritin (10.0-291.0) ng/mL Microbiology - Last 24 Hours (Table) 08/13/17 10:30 Blood Culture - Preliminary Blood No Growth after 24 hours 08/13/17 10:30 Blood Culture - Preliminary Blood No Growth after 24 hours 08/12/17 09:06 Blood Culture - Preliminary Blood No Growth after 48 hours Assessment and Plan Assessment: Impression: 1 atypical chest pain 2 acute hypoxic respiratory failure secondary to bilateral pleural effusions left greater than right. 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 4 history of chronic kidney injury stage V, on hemodialysis. 5 history of multiple comorbidities including depression, chronic anemia, of chronic disease, Crohn's disease, history of shock liver, and history of hypoxic respiratory failure requiring intubation and mechanical ventilation, resolved. Recommendation: The patient was seen and evaluated by Dr. Bobby. Chest x-ray was reviewed. We 'll go ahead and plan for thoracentesis of the left chest today. She was intolerant of much hemodialysis yesterday in less than a liter of fluid removed. In the interim we'll continue with her current medications. We will continue to follow and make further recommendations based on her clinical status. I, the cosigning physician, performed a history & physical examination of the patient. Lungs sounds are in addition the bilateral posterior bases, left greater than right. Maintaining good O2 saturations in the 90s on 5 liters high flow nasal cannula. I discussed the assessment and plan of care with my nurse practitioner, Kasie Roy. I attest to the above note as dictated by her.
--- NOTE | 2017-08-14 14:23 | XR ---
EXAMINATION TYPE: XR chest 1V portable DATE OF EXAM: 08/14/2017 COMPARISON: 08/14/2017 earlier exam INDICATION: Status post left thoracentesis TECHNIQUE: Single frontal view of the chest is obtained. FINDINGS: The heart size is normal. The pulmonary vasculature is normal. Previous pleural effusion on left has largely resolved. No pneumothorax is evident. Double-lumen cath eter on the right tips in the proximal right atrium. Remaining portions of the lungs are clear. Pulmo nary vasculature is normal. IMPRESSION: 1. No pneumothorax post left thoracentesis.
--- NOTE | 2017-08-14 14:38 | PCN ---
PROCEDURE NOTE LEFT-SIDED THORACENTESIS: PREOPERATIVE DIAGNOSIS: Left pleural effusion. POSTOP DIAGNOSIS: Left pleural effusion. ANESTHESIA USED: 5 mL of 1% lidocaine. PROCEDURE: Patient was placed in a sitting upright position, the area below the left scapula was prepared in a sterile fashion and drapes were applied. The area at the 8th intercostal space and tip of the scapula was locally anesthetized with lidocaine, then a 26-gauge needle advanced into the pleural space until the fluid was localized. After localizing the fluid, a stab wound was made with a #11 scalpel, and I was able to introduce this that small tiny incision/stab wound into the area of the pleural space. The catheter and needle were introduced, and as I entered the pleural space and the fluid was obtained, the needle was pulled out of the catheter, and the catheter was advanced into the pleural space. Freely flowing fluid was removed, slightly yellow, clear otherwise, 900 mL of fluid was drained from the left pleural space, non-bloody, and did not look turbid. Procedure was well tolerated, no evidence of any immediate complications, fluid was sent for different diagnostic studies. MMODL / IJN: [id number] /
[2017-08-14] MEDS: HEPARIN SOD,PORK IN 0.45% NACL 25,000 UNIT in 0.45% NACL 1 500ML.BAG IV SCH (15:31)
--- NOTE | 2017-08-14 15:42 | NM ---
EXAMINATION TYPE: NM pul vent and perfuse DATE OF EXAM: 08/14/2017 COMPARISON: NONE HISTORY: Short of breath, renal failure, recent thoracentesis TECHNIQUE: Utilizing inhalation of 64.9 mCi Tc 99m DTPA aerosol and intravenous injection of 5.1 mCi of Tc 99m MAA, ventilation and perfusion images are acquired post injection in multiple projections. FINDINGS: There is patchy distribution through the lungs are both ventilation and perfusion. This is increased within the right lower lung field with diminished radiotracer at the right apex and throughout the le ft lung. Moderate or large Mismatched defects are not evident. IMPRESSION: Indeterminate probability based on PIOPED 2 criteria for pulmonary embolism.
[2017-08-14] MEDS: POTASSIUM CHLORIDE ER 20 MEQ TAB.ER PO SCH (17:32)
--- NOTE | 2017-08-14 19:35 | PN ---
PROGRESS NOTE DATE OF SERVICE: 08/14/2017. PRESENTING COMPLAINT: Short of breath, tired. INTERVAL HISTORY: Patient with left upper lobectomy with negative pathology presented very short of breath with congestion, weak, tired. Later in the day after I saw the patient, patient had left-sided thoracentesis; 900 mL of relatively clear fluid was obtained. Patient continues to feel weak and tired. Patient has been on IV Lasix. REVIEW OF SYSTEMS: Done for constitutional, cardiovascular, GI, pulmonary; relevant findings as above. CURRENT MEDICATIONS: Current medications include IV ceftriaxone. PHYSICAL EXAMINATION: Afebrile. Pulse 90, respiration 20, blood pressure 109/59, pulse ox 99% on 5 L. GENERAL APPEARANCE: Propped up in bed, very tired-appearing. Mask in place. EYES: Pupils equal. Conjunctivae pale. HEENT: External appearance of nose and ears normal. Oral cavity with dry mucous membrane. NECK: JVD unable to assess. Mass not palpable. RESPIRATORY: Effort increased. LUNGS: Decreased breath sounds. CARDIOVASCULAR: First and second sounds normal. No edema. ABDOMEN: Soft, nontender. Liver and spleen not palpable. PSYCHIATRY: Alert and oriented x3. Mood and affect very tired-appearing. INVESTIGATIONS: White count 5.9, hemoglobin 7.8, potassium 3.4. ASSESSMENT: 1. Possible left-sided pneumonia. Patient is on IV ceftriaxone. 2. Bilateral pleural effusion, larger on the left side, status post thoracentesis today, with 900 mL of fluid removed. 3. End-stage kidney disease, on hemodialysis. 4. Depression and anxiety not otherwise specified. 5. Chronic obstructive pulmonary disease in an ex-smoker. 6. Chronic fibromyalgia. 7. Gastroesophageal reflux disease. 8. Primary osteoarthritis in multiple joints bilaterally. 9. Recent left upper lobectomy, pathology being negative. 10.Significant medical debility. 11.Acute hypoxic respiratory failure, probably from pneumonia and pleural effusion. 12.Moderate secondary pulmonary hypertension, probably from chronic obstructive pulmonary disease. PLAN: Continue current medication and treatment plan. Patient remains weak and tired. I did discuss with Dr. Bobby. Patient also was seen by Dr. Barakat; according to him, patient may be having infection from the urinary symptom. MMODL / IJN: [id number] /
[2017-08-14 19:48] LABS: Total Protein, Body Fluid 2800 mg/dL
[2017-08-14 20:20] LABS: Appearance,BF Clear; Color,BF Yellow; Nucleated Cells, Body Fluid 365 /uL; RBC, Body Fluid 270 /uL
[2017-08-14 20:22] LABS: Mononuclear WBC,Body Fluid 88 %; Polynuclear WBC,Body Fluid 11 %; Total Cells Counted,Body Fluid 100
[2017-08-14] MEDS: AMITRIPTYLINE HCL 25 MG TAB PO SCH (20:41)
[2017-08-14] MEDS: cefTRIAXone IN SWFI 1,000 MG/10 ML SYRINGE IVP SCH (21:23)
--- NOTE | 2017-08-14 23:34 | P.PN ---
Subjective Progress Note Date: 08/14/17 Principal diagnosis: Shortness of breath 71-year-old female presents from the extended care facility with chest pain and increasing shortness of breath. She has a known history of the left upper lobe lesion and was found the outpatient setting over the last many months. There were some changes is noted by computed tomography scan and PET scan and patient elected for a resection rather than a biopsy. The patient surgery actually went quite well she was extubated after the procedure but on the third day she had a major change in her status. She developed what appears to be septic shock and required transfer to the intensive care unit and treated with BiPAP and intubation. She is not evidence of acute renal failure as well as shock liver and resultant consumptive coagulopathy and anemia. Eventually she improved and was discharged to extended care receiving hemodialysis. She has been doing relatively well with her dialysis but on the day admission had the sudden onset of increasing shortness of breath and chest pain and cascades been admitted and seen by nephrology, pulmonary critical care and cardiology. Goal is to try to remove some of her excess fluid which may then help her shortness of breath. She has been seen by pulmonary and they're contemplating thoracentesis to also attempts to improve her shortness of breath more rapidly. 08/14/2017 reveals the patient to be feeling somewhat better at this time. Thoracentesis is occurred for about 1000 mL in this is allowed a marked improvement of her shortness of breath. She'll continue to have hemodialysis to improve her volume status. She relates that her chest pain is improved. Objective - Vital Signs Vital signs: Vital Signs Temp 97.0 F L 08/14/17 19:49 Pulse 84 08/14/17 19:49 Resp 20 08/14/17 19:49 BP 118/58 08/14/17 19:49 Pulse Ox 100 08/14/17 19:49 Intake & Output 08/14/17 08/14/17 08/15/17 06:59 18:59 06:59 Intake Total 274.434 180 100 Output Total 350 1400 Balance -75.566 -1220 100 Weight 46 kg Intake: Intake, IV Titration 74.434 Amount Heparin Sod,Pork in 0.45% 74.434 NaCl 25,000 unit In 0.45 % NaCl 1 500ml.bag @ 12 UNITS/KG/HR 10.88 mls/hr IV .Q24H [facility] Rx#: [id number] Oral 200 180 100 Output: Urine 350 1400 Uretheral (Green) 500 Other: Voiding Method Bedpan Indwelling Catheter Indwelling Catheter Indwelling Catheter # Voids 2 # Bowel Movements 2 - Exam 71-year-old woman with a small and slight build is in no distress, receiving hemodialysis HEENT: Anicteric conjunctiva are pink and moist nasal mucosa grossly intact without significant lesions, there is no thrush. Neck: The neck is supple without significant lymphadenopathy or thyromegaly. Lungs: Symmetrical air entry is noted. Few expiratory wheezes are heard. Is now much improved aeration to the left base. Heart: Regular rate and rhythm with an audible S1-S2, no S3 no S4. There is no significant murmur click or rub, PMI was nondisplaced. Abdomen: Positive bowel sounds soft and nontender without palpable masses or organomegaly. There was no guarding or rebound. Extremities: The upper extremities have excellent pulses they are symmetric, no significant petechiae or telangiectasia. No splinter hemorrhages were noted. There is some lower extremity edema pulses are 2+ and symmetric The catheter for hemodialysis right anterior chest wall is intact without erythema or tenderness Neuro: Awake alert oriented to person seems comfortable and there are no noted acute neurological deficits - Labs CBC & Chem 7: 08/14/17 05:24 08/14/17 05:24 Labs: Abnormal Lab Results - Last 24 Hours (Table) 08/13/17 08/14/17 08/14/17 Range/Units 02:35 05:24 05:24 RBC 2.77 L (3.80-5.40) m/uL Hgb 7.8 L (11.4-16.0) gm/dL Hct 26.9 L (34.0-46.0) % MCHC 29.1 L (31.0-37.0) g/dL APTT (22.0-30.0) sec Potassium 3.4 L (3.5-5.1) mmol/L Creatinine 1.10 H (0.52-1.04) mg/dL Calcium 8.1 L (8.4-10.2) mg/dL Iron 26 L (50-170) ug/dL TIBC 212 L (228-460) ug/dL Ferritin 463.9 H (10.0-291.0) ng/mL 08/14/17 08/14/17 Range/Units 05:24 16:42 RBC (3.80-5.40) m/uL Hgb (11.4-16.0) gm/dL Hct (34.0-46.0) % MCHC (31.0-37.0) g/dL APTT 39.7 H 35.0 H (22.0-30.0) sec Potassium (3.5-5.1) mmol/L Creatinine (0.52-1.04) mg/dL Calcium (8.4-10.2) mg/dL Iron (50-170) ug/dL TIBC (228-460) ug/dL Ferritin (10.0-291.0) ng/mL Microbiology - Last 24 Hours (Table) 08/14/17 13:45 Body Fluid Culture - Preliminary Pleural Fluid 08/14/17 13:45 Acid Fast Bacilli Culture - Preliminary Pleural Fluid 08/14/17 13:45 Fungal Culture - Preliminary Pleural Fluid 08/13/17 10:30 Blood Culture - Preliminary Blood No Growth after 24 hours 08/13/17 10:30 Blood Culture - Preliminary Blood No Growth after 24 hours 08/12/17 09:06 Blood Culture - Preliminary Blood No Growth after 48 hours Laboratory Results WBC 5.9 k/uL (3.8-10.6) 08/14/17 05:24 RBC 2.77 m/uL (3.80-5.40) L 08/14/17 05:24 Hgb 7.8 gm/dL (11.4-16.0) L 08/14/17 05:24 Hct 26.9 % (34.0-46.0) L 08/14/17 05:24 MCV 97.0 fL (80.0-100.0) 08/14/17 05:24 MCH 28.3 pg (25.0-35.0) 08/14/17 05:24 MCHC 29.1 g/dL (31.0-37.0) L 08/14/17 05:24 RDW 14.2 % (11.5-15.5) 08/14/17 05:24 Plt Count 220 k/uL (150-450) 08/14/17 05:24 Neutrophils % 73 % 08/14/17 05:24 Neutrophils % (Manual) 72 % 08/12/17 15:02 Lymphocytes % 18 % 08/14/17 05:24 Lymphocytes % (Manual) 18 % 08/12/17 15:02 Monocytes % 3 % 08/14/17 05:24 Monocytes % (Manual) 5 % 08/12/17 15:02 Eosinophils % 3 % 08/14/17 05:24 Eosinophils % (Manual) 5 % 08/12/17 15:02 Basophils % 1 % 08/14/17 05:24 Neutrophils # 4.3 k/uL (1.3-7.7) 08/14/17 05:24 Neutrophils # (Manual) 2.95 k/uL (1.3-7.7) 08/12/17 15:02 Lymphocytes # 1.1 k/uL (1.0-4.8) 08/14/17 05:24 Lymphocytes # (Manual) 0.74 k/uL (1.0-4.8) L 08/12/17 15:02 Monocytes # 0.2 k/uL (0-1.0) 08/14/17 05:24 Monocytes # (Manual) 0.21 k/uL (0-1.0) 08/12/17 15:02 Eosinophils # 0.2 k/uL (0-0.7) 08/14/17 05:24 Eosinophils # (Manual) 0.21 k/uL (0-0.7) 08/12/17 15:02 Basophils # 0.1 k/uL (0-0.2) 08/14/17 05:24 Nucleated RBCs 0 /100 WBC (0-0) 08/12/17 15:02 Manual Slide Review Performed 08/12/17 15:02 Hypochromasia Marked 08/14/17 05:24 Hypochromasia (manual) Present 08/12/17 15:02 Anisocytosis (manual) Present 08/12/17 15:02 Macrocytosis Slight 08/13/17 02:35 PT 12.6 sec (9.0-12.0) H 08/12/17 16:56 INR 1.3 (<1.2) H 08/12/17 16:56 APTT 35.0 sec (22.0-30.0) H 08/14/17 16:42 D-Dimer 1.89 mg/L FEU (<0.60) H 08/12/17 09:06 VBG pH 7.42 (7.31-7.41) H 08/12/17 09:33 VBG pCO2 48 mmHg (37-51) 08/12/17 09:33 VBG HCO3 30 mmol/L (24-28) H 08/12/17 09:33 Sodium 139 mmol/L (137-145) 08/14/17 05:24 Potassium 3.4 mmol/L (3.5-5.1) L 08/14/17 05:24 Chloride 100 mmol/L (98-107) 08/14/17 05:24 Carbon Dioxide 23 mmol/L (22-30) 08/14/17 05:24 Anion Gap 16 mmol/L 08/14/17 05:24 BUN 7 mg/dL (7-17) 08/14/17 05:24 Creatinine 1.10 mg/dL (0.52-1.04) H 08/14/17 05:24 Est GFR (CKD-EPI)AfAm 58 (>60 ml/min/1.73 sqM) 08/14/17 05:24 Est GFR (CKD-EPI)NonAf 50 (>60 ml/min/1.73 sqM) 08/14/17 05:24 Glucose 87 mg/dL (74-99) 08/14/17 05:24 Calcium 8.1 mg/dL (8.4-10.2) L 08/14/17 05:24 Phosphorus 4.7 mg/dL (2.5-4.5) H 08/13/17 02:35 Iron 26 ug/dL (50-170) L 08/13/17 02:35 TIBC 212 ug/dL (228-460) L 08/13/17 02:35 Iron Saturation 12.26 (12.00-45.00) 08/13/17 02:35 Ferritin 463.9 ng/mL (10.0-291.0) H 08/13/17 02:35 Total Bilirubin 0.3 mg/dL (0.2-1.3) 08/12/17 09:06 AST 9 U/L (14-36) L 08/12/17 09:06 ALT 31 U/L (9-52) 08/12/17 09:06 Alkaline Phosphatase 67 U/L (38-126) 08/12/17 09:06 Total Creatine Kinase 40 U/L (30-135) 08/12/17 21:10 CK-MB (CK-2) 3.4 ng/mL (0.0-2.4) H* 08/12/17 21:10 CK-MB (CK-2) Rel Index 8.5 08/12/17 21:10 Troponin I 0.040 ng/mL (0.000-0.034) H* 08/12/17 21:10 NT-Pro-B Natriuret Pep 53538 pg/mL 08/13/17 02:35 Total Protein 5.8 g/dL (6.3-8.2) L 08/12/17 09:06 Albumin 2.9 g/dL (3.5-5.0) L 08/12/17 09:06 Triglycerides 97 mg/dL (<150) 08/13/17 02:35 Cholesterol 122 mg/dL (<200) 08/13/17 02:35 LDL Cholesterol, Calc 46 mg/dL (0-99) 08/13/17 02:35 HDL Cholesterol 57 mg/dL (40-60) 08/13/17 02:35 Fluid Source Pleural 08/14/17 13:45 Fluid Color Yellow 08/14/17 13:45 Fluid Appearance Clear 08/14/17 13:45 Fluid RBC 270 /uL 08/14/17 13:45 Fluid Nucleated Cells 365 /uL 08/14/17 13:45 Fluid Polynuclear WBCs 11 % 08/14/17 13:45 Fluid Mononuclear WBCs 88 % 08/14/17 13:45 Fluid Eosinophils 1 % 08/14/17 13:45 Microbiology 08/14/17 13:45 Pleural Fluid Body Fluid Culture - Preliminary 08/14/17 13:45 Pleural Fluid Acid Fast Bacilli Culture - Preliminary 08/14/17 13:45 Pleural Fluid Fungal Culture - Preliminary 08/13/17 10:30 Blood Blood Culture - Preliminary No Growth after 24 hours 08/13/17 10:30 Blood Blood Culture - Preliminary No Growth after 24 hours 08/12/17 09:06 Blood Blood Culture - Preliminary No Growth after 48 hours Assessment and Plan (1) Chest pain Current Visit: Yes Status: Acute Code(s): R07.9 - CHEST PAIN, UNSPECIFIED SNOMED Code(s): 89930387 (2) Hypoxia Current Visit: Yes Status: Acute Code(s): R09.02 - HYPOXEMIA SNOMED Code(s ): 145978033 (3) Non-caseating granuloma Narrative/Plan: 71-year-old female presents to Hospital from the [facility] with the sudden onset of increasing chest pain and shortness of breath. She has end-stage renal disease receiving hemodialysis. She is evidence of bilateral pleural effusions and pulmonary critical care is contemplating thoracentesis to improve her shortness of breath. At admission the patient did have evidence of 1 L of urine in her bladder and this was drained with a catheter, evidence of a markedly abnormal urinalysis and urine culture and blood culture are in progress. Antibiotic therapy with Rocephin is being utilized at this time pending further culture data. She clinically is showing improvement but was having some difficulty with hemodialysis due to relative hypotension. Her chest pain is improved. She likely was having sepsis from the infection of the urinary system as well as an obstructive uropathy from bladder outlet dysfunction. She is feeling somewhat better. As noted she did have a significant noncaseating granulomas in the lung at the time of her resection. The patient has had PCR probes performed at an outside academic center that were negative for Mycobacterium tuberculosis as well as non -tuberculosis mycobacterial. This does not exclude mycobacterial disease. When the patient is more stable a repeat bronchoscopy would be indicated for deep specimens to be obtained from the lung, these need to be bacterial cultures for Mycobacterium. This could then help guide the course of treatment. 08/14/2017 H and is status post thoracentesis and is feeling considerably better ready. Thousand cc of fluid was removed and this has helped her pulmonary status. She denying significant pain at this point in time. And tolerating dialysis modestly well hopefully with improved function will have a more effective dialysis session. Current Visit: Yes Status: Acute Code(s): L92.9 - GRANULOMATOUS DISORDER OF THE SKIN, SUBCU, UNSP SNOMED Code(s): 104807598
[2017-08-15] MEDS: IPRATROPIUM-ALBUTEROL 3 ML NEB INHALATION SCH ×6 (03:11→23:59)
[2017-08-15] MEDS: NYSTATIN 100,000 UNIT/ML SUSP 500,000 UNIT/5 ML CUP PO SCH ×4 (06:21→23:39)
[2017-08-15] MEDS: PANTOPRAZOLE 40 MG TABLET PO SCH ×2 (06:21→17:06)
[2017-08-15] MEDS: GABAPENTIN 300 MG CAP PO SCH ×3 (06:21→20:10)
[2017-08-15 06:35] LABS: Basophils # (A) 0.1 k/uL (0-0.2); Basophils % (A) 1 %; Eosinophils # (A) 0.4 k/uL (0-0.7); Eosinophils % (A) 7 %; HCT 26.1 % (34.0-46.0); HGB 8.1 gm/dL (11.4-16.0); Hypochromasia Moderate; Lymphocytes # (A) 1.6 k/uL (1.0-4.8); Lymphocytes % (A) 29 %; MCH 28.7 pg (25.0-35.0); MCV 92.5 fL (80.0-100.0); Mean Platelet Volume 7.1; Monocytes # (A) 0.3 k/uL (0-1.0); Monocytes % (A) 5 %; Neutrophils # (A) 2.9 k/uL (1.3-7.7); Neutrophils % (A) 54 %; Platelet Count 270 k/uL (150-450); Poikilocytosis Slight; RBC 2.82 m/uL (3.80-5.40); RDW 14.1 % (11.5-15.5); WBC 5.5 k/uL (3.8-10.6)
[2017-08-15 06:35] LABS: Glucose,Whole Blood 91 mg/dL (75-99)
[2017-08-15] MEDS: METOPROLOL TARTRATE 25 MG TAB PO SCH ×2 (08:19→20:10)
[2017-08-15] MEDS: guaiFENesin 600 MG TABLET.ER PO SCH ×2 (08:19→20:10)
[2017-08-15] MEDS: ASPIRIN 81 MG PO SCH (08:19)
[2017-08-15] MEDS: FUROSEMIDE 10 MG/ML 10 ML VIAL IV SCH ×2 (08:20→21:46)
[2017-08-15] MEDS: traMADol 50 MG TAB PO SCH ×2 (08:20→20:09)
[2017-08-15] MEDS: SODIUM FERRIC GLUCONAT-SUCROSE 125 MG in SODIUM CHLORIDE 0.9% 100 ML IVPB SCH (09:51)
[2017-08-15 11:08] LABS: Potassium 2.8 mmol/L (3.5-5.1)
[2017-08-15] MEDS: ERGOCALCIFEROL 50,000 UNIT CAP PO SCH (11:43)
[2017-08-15] MEDS ORDERED: POTASSIUM CHLORIDE ER 20 MEQ TAB.ER PO STA (11:44)
--- NOTE | 2017-08-15 12:08 | P.PN ---
Subjective Progress Note Date: 08/15/17 Principal diagnosis: Moderate left-sided pleural effusion This is a 71-year-old white female familiar to my service, patient was recently inpatient, and she underwent left upper lobectomy for what seems to be a necrotizing mass, however pathology ruled out malignancy, and it showed basically possible old granulomatous infection, cultures were pending. [place] that the patient may have had atypical mycobacterial infection involving the left upper lobe. Patient was eventually discharged to [facility], and she has been receiving dialysis for acute on chronic renal failure. Patient presented to the ER this morning complaining of sudden onset of shortness of breath, along with severe chest pain and she was noted to be hypotensive. Upon arrival to the ER, patient had an EKG showing normal sinus rhythm with nonspecific ST and T-wave changes in the inferior and anterior leads. Chest x-ray showed small to moderate left-sided pleural effusion ultrasound showed a 5.5 cm pocket in the left pleural space, and it also showed a right sided pleural effusion. Patient was admitted, and this consult was initiated. Patient has been compliant with her dialysis, and she did receive her dialysis yesterday. D-dimer was 1.89, and troponin was 0.032. Hemoglobin was 7.1. Patient was admitted, placed on heparin, seen by cardiology, and this consult was initiated. The patient herself is a poor historian, has underlying dementia, but most of the history was obtained from her . Patient denies any fever no chills no hemoptysis, presently no chest pain, and no shortness of breath at present during my evaluation. It was felt that the patient had atypical chest pain, and after reviewing her ultrasound of the chest , I recommended repeat chest x-ray after hemodialysis, and if the fluid remains unchanged in the left pleural space, may consider thoracentesis. Which will be diagnostic and therapeutic at the same time. Presently the patient is in no form of respiratory distress during my evaluation. The patient is seen again today 08/13/2017 in follow-up on the selective care unit. She is currently awake and alert. She is still somewhat dyspneic on exertion. She is requiring 6 L high flow nasal cannula to maintain O2 saturations in the 90s. Temperature 99.6. She is receiving hemodialysis. The plan was for 2.5 L to be removed however her blood pressure is not allowing that M probably 1 L all be removed. We'll plan for chest x-ray today shortly after dialysis to evaluate the pleural effusion. Blood cultures revealing no growth. Hemoglobin 7.8. White count 5.4. White count 1.81. BNP 16,300. The patient is seen again today 08/14/2017 in follow-up on the selective care unit. She continues with a moderate left-sided pleural effusion. The plan is for thoracentesis today. The heparin is currently on hold. She denies any worsening shortness of breath, cough or congestion. She is still requiring 5 L/ m per nasal cannula to maintain O2 saturations in the 90s. She was intolerant of much dialysis yesterday due to hypotension. Less than a liter was removed. Blood cultures reveal no growth. White count 5.9. Hemoglobin 7.8. Creatinine 1.10. The patient is seen again today 08/15/2017 in follow-up on the selective care unit. She is awake and alert in no acute distress. She is breathing easier today as compared to yesterday. She is now status post thoracentesis of the left chest. 900 mls of slightly yellow otherwise clear fluid was removed. Fluid analysis is pending. The chest x-ray revealed nearly complete resolution. She is maintaining good O2 saturations in the upper 90s on 4 L/m per nasal cannula. She's been afebrile. Objective - Vital Signs Vital signs: Vital Signs Temp 97.0 F L 08/15/17 08:00 Pulse 86 08/15/17 08:53 Resp 18 08/15/17 08:00 BP 109/59 08/15/17 08:00 Pulse Ox 97 08/15/17 08:44 Intake & Output 08/14/17 08/15/17 08/15/17 18:59 06:59 18:59 Intake Total 180 100 240 Output Total 1400 800 800 Balance -1220 -700 -560 Weight 42 kg Intake: Oral 180 100 240 Output: Urine 1400 800 800 Uretheral (Green) 500 800 800 Other: Voiding Method Indwelling Catheter Indwelling Catheter - Exam GENERAL EXAM: Frail, weak. Alert, fairly comfortable in no apparent distress. HEAD: Normocephalic. EYES: Normal reaction of pupils, equal size. NOSE: Clear with pink turbinates. THROAT: No erythema or exudates. NECK: No masses, no JVD. CHEST: No chest wall deformity. LUNGS: Diminished in the bilateral posterior bases more so on the left. CVS: S1 and S2 normal with no audible murmur, regular rhythm. ABDOMEN: No hepatosplenomegaly, normal bowel sounds, no guarding or rigidity. SPINE: No scoliosis or deformity SKIN: No rashes CENTRAL NERVOUS SYSTEM: No focal deficits, tone is normal in all 4 extremities. EXTREMITIES: There is no peripheral edema. No clubbing, no cyanosis. Peripheral pulses are intact.m - Labs CBC & Chem 7: 08/15/17 06:01 08/15/17 06:01 Labs: Abnormal Lab Results - Last 24 Hours (Table) 08/14/17 08/15/17 08/15/17 Range/Units 16:42 06:01 06:01 RBC 2.82 L (3.80-5.40) m/uL Hgb 8.1 L (11.4-16.0) gm/dL Hct 26.1 L (34.0-46.0) % APTT 35.0 H (22.0-30.0) sec Potassium 2.8 L* (3.5-5.1) mmol/L Carbon Dioxide 31 H (22-30) mmol/L Creatinine 1.44 H (0.52-1.04) mg/dL Calcium 8.0 L (8.4-10.2) mg/dL Microbiology - Last 24 Hours (Table) 08/12/17 09:06 Blood Culture - Preliminary Blood No Growth after 72 hours 08/14/17 13:45 Gram Stain - Preliminary Pleural Fluid Body Fluid Culture - Preliminary 08/14/17 13:45 Fungal Culture - Preliminary Pleural Fluid 08/14/17 13:45 Acid Fast Bacilli Smear - Final Pleural Fluid Acid Fast Bacilli Culture - Preliminary 08/13/17 10:30 Blood Culture - Preliminary Blood No Growth after 24 hours 08/13/17 10:30 Blood Culture - Preliminary Blood No Growth after 24 hours Assessment and Plan Assessment: Impression: 1 atypical chest pain 2 acute hypoxic respiratory failure secondary to bilateral pleural effusions left greater than right. Status post left-sided thoracentesis with 900 and muscles of yellow fluid removed. Fluid analysis pending. 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 4 history of chronic kidney injury stage V, on hemodialysis. 5 history of multiple comorbidities including depression, chronic anemia, of chronic disease, Crohn's disease, history of shock liver, and history of hypoxic respiratory failure requiring intubation and mechanical ventilation, resolved. Recommendation: The patient was seen and evaluated by Dr. Bobby. Patient is improved today as compared to yesterday. We'll continue with her current medications. We will continue to follow and make further recommendations based on her clinical status. I, the cosigning physician, performed a history & physical examination of the patient. Lungs sounds are in addition the bilateral posterior bases,. Maintaining good O2 saturations in the 90s on 4 liters high flow nasal cannula. I discussed the assessment and plan of care with my nurse practitioner, Kasie Roy. I attest to the above note as dictated by her.
--- NOTE | 2017-08-15 12:33 | PN ---
PROGRESS NOTE Patient is seen for followup for acute kidney injury, currently hemodialysis dependent. The patient's serum creatinine is significantly decreased at 1.1 mg/dL from yesterday, however, that was after a session of dialysis the day before. Currently, patient is maintained on IV Lasix. She has had good urine output with 24 hour output documented at 2.2 L. Patient is not significantly short of breath today. I will check a BMP today and hold off on dialysis. EXAMINATION: Blood pressure is 109/59, heart rate 83 per minute she is afebrile. Examination of the heart S1, S2. Examination lungs bilateral breath sounds are heard. Abdomen is soft, nontender. Examination lower extremity shows no evidence of edema. [employer] exam is grossly intact. Patient moving all 4 extremities. LAB: Shows hemoglobin 8.1 g/dL. BMP is pending. ASSESSMENT: 1. Acute kidney injury, hemodialysis dependent renal failure, maintained on hemodialysis as outpatient. However, serum creatinine is significantly low. The patient has had good urine output. I will hold off on hemodialysis today. I will continue with the IV Lasix and check labs from today. 2. Urine retention with indwelling Green catheter. 3. Anemia with iron deficiency, maintained on IV iron. 4. Volume overload, currently improved. Continue with IV Lasix. The patient's last dialysis was on , 08/13/2017. PLAN: Check labs today. Hold hemodialysis. Repeat labs in a.m. Continue with IV Lasix. MMODL / IJN: [id number] /
[2017-08-15] MEDS: POTASSIUM CHLORIDE ER 20 MEQ TAB.ER PO SCH ×3 (17:06→23:38)
[2017-08-15] MEDS: AMITRIPTYLINE HCL 25 MG TAB PO SCH (20:10)
--- NOTE | 2017-08-15 21:00 | PN ---
PROGRESS NOTE DATE OF SERVICE: 08/15/2017 PRESENTING COMPLAINT: Tired. INTERVAL HISTORY: This patient had a recent left upper lobectomy with negative pathology for infection and malignancy, presented feeling very short of breath, tired. The patient had thoracentesis on the left side. 900 mL was removed of relatively clear fluid. The patient is feeling much better today, sitting up on a chair, actually talking. Did eat some. Physical Therapy is on the case. Has been getting IV Lasix, also on hemodialysis. REVIEW OF SYSTEMS: Done for constitutional, cardiovascular, GI, pulmonary; relevant findings as above. CURRENT MEDICATIONS: Include IV ceftriaxone. EXAMINATION: Temperature 97.1, pulse 93, respirations 18, blood pressure 83/53, pulse ox 100% on 5L. GENERAL APPEARANCE: Was sitting up in a chair; tired-appearing, but far more awake today. EYES: Pupils equal. Conjunctivae pale. HEENT: External nose and ears normal. Oral cavity normal. NECK: JVD unable to assess. Mass not palpable. RESPIRATORY: Effort increased. LUNGS: Decreased breath sounds. CARDIOVASCULAR: First and second sounds normal. No edema. ABDOMEN: Soft, nontender. Liver and spleen not palpable. PSYCHIATRY: Alert and oriented x3. Mood and affect tired. INVESTIGATIONS: White count 5.5, hemoglobin 8.1. Potassium 2.8, BUN 11, creatinine 1.44. ASSESSMENT: 1. Bilateral pleural effusion, large on the left, status post thoracentesis. 2. End-stage kidney disease on hemodialysis. 3. Depression, not otherwise specified. 4. Chronic obstructive pulmonary disease in an ex-smoker. 5. Chronic fibromyalgia. 6. Gastroesophageal reflux disease. 7. 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 8. Recent left upper lobe lobectomy. Pathology negative for both infection and malignancy. 9. Significant medical debility. 10.Acute hypoxic respiratory failure, probably from pneumonia and pleural effusion. 11.Moderate secondary pulmonary hypertension probably from chronic obstructive pulmonary disease. 12.Possible pneumonia for which patient is on IV antibiotics. 13.Hypokalemia. PLAN: Care was discussed with the patient and . Continue with physical therapy. Continue medication and treatment plan. The patient's pleural fluid to Microbiology is pending. MMODL / IJN: [id number] /
--- NOTE | 2017-08-15 21:19 | P.PN ---
Subjective Progress Note Date: 08/15/17 Principal diagnosis: Shortness of breath 71-year-old female presents from the extended care facility with chest pain and increasing shortness of breath. She has a known history of the left upper lobe lesion and was found the outpatient setting over the last many months. There were some changes is noted by computed tomography scan and PET scan and patient elected for a resection rather than a biopsy. The patient surgery actually went quite well she was extubated after the procedure but on the third day she had a major change in her status. She developed what appears to be septic shock and required transfer to the intensive care unit and treated with BiPAP and intubation. She is not evidence of acute renal failure as well as shock liver and resultant consumptive coagulopathy and anemia. Eventually she improved and was discharged to extended care receiving hemodialysis. She has been doing relatively well with her dialysis but on the day admission had the sudden onset of increasing shortness of breath and chest pain and cascades been admitted and seen by nephrology, pulmonary critical care and cardiology. Goal is to try to remove some of her excess fluid which may then help her shortness of breath. She has been seen by pulmonary and they're contemplating thoracentesis to also attempts to improve her shortness of breath more rapidly. 08/14/2017 reveals the patient to be feeling somewhat better at this time. Thoracentesis is occurred for about 1000 mL in this is allowed a marked improvement of her shortness of breath. She'll continue to have hemodialysis to improve her volume status. She relates that her chest pain is improved. 08/15/2017 patient feels considerably better today overall. Other than some coughing she's feeling better. She is much less short of breath. Energy level is improved. Has noticed a bit of ongoing dryness and rash to her legs with mild itching. Denies fevers or chills Objective - Vital Signs Vital signs: Vital Signs Temp 97.5 F L 08/15/17 20:04 Pulse 84 08/15/17 20:30 Resp 18 08/15/17 20:04 BP 115/57 08/15/17 20:04 Pulse Ox 91 L 08/15/17 20:30 Intake & Output 08/15/17 08/15/17 08/16/17 06:59 18:59 06:59 Intake Total 100 700 Output Total 800 1600 Balance -700 -900 Weight 42 kg Intake: Intake, IV Titration 100 Amount Sodium Ferric Gluconat- 100 Sucrose 125 mg In Sodium Chloride 0.9% 100 ml @ 100 mls/hr IVPB DAILY [facility] Rx#:[id number] Oral 100 600 Output: Urine 800 1600 Uretheral (Green) 800 1600 Other: Voiding Method Indwelling Catheter - Exam 71-year-old woman with a small and slight build is in no distress, receiving hemodialysis HEENT: Anicteric conjunctiva are pink and moist nasal mucosa grossly intact without significant lesions, there is no thrush. Neck: The neck is supple without significant lymphadenopathy or thyromegaly. Lungs: Symmetrical air entry is noted. Few expiratory wheezes are heard. Is now much improved aeration to the left base. Heart: Regular rate and rhythm with an audible S1-S2, no S3 no S4. There is no significant murmur click or rub, PMI was nondisplaced. Abdomen: Positive bowel sounds soft and nontender without palpable masses or organomegaly. There was no guarding or rebound. Extremities: The upper extremities have excellent pulses they are symmetric, no significant petechiae or telangiectasia. No splinter hemorrhages were noted. There is some lower extremity edema pulses are 2+ and symmetric The catheter for hemodialysis right anterior chest wall is intact without erythema or tenderness Neuro: Awake alert oriented to person seems comfortable and there are no noted acute neurological deficits Skin there is a dry scaly rash on both legs it is not open or draining. The skin is dry. - Labs CBC & Chem 7: 08/15/17 06:01 08/15/17 20:03 Labs: Abnormal Lab Results - Last 24 Hours (Table) 08/15/17 08/15/17 08/15/17 Range/Units 06:01 06:01 15:28 RBC 2.82 L (3.80-5.40) m/uL Hgb 8.1 L (11.4-16.0) gm/dL Hct 26.1 L (34.0-46.0) % Potassium 2.8 L* 2.7 L* (3.5-5.1) mmol/L Carbon Dioxide 31 H (22-30) mmol/L Creatinine 1.44 H (0.52-1.04) mg/dL Calcium 8.0 L (8.4-10.2) mg/dL 04/07/18 Range/Units 20:03 RBC (3.80-5.40) m/uL Hgb (11.4-16.0) gm/dL Hct (34.0-46.0) % Potassium 2.9 L* (3.5-5.1) mmol/L Carbon Dioxide (22-30) mmol/L Creatinine (0.52-1.04) mg/dL Calcium (8.4-10.2) mg/dL Microbiology - Last 24 Hours (Table) 08/13/17 10:30 Blood Culture - Preliminary Blood No Growth after 48 hours 08/13/17 10:30 Blood Culture - Preliminary Blood No Growth after 48 hours 08/12/17 09:06 Blood Culture - Preliminary Blood No Growth after 72 hours 08/14/17 13:45 Gram Stain - Preliminary Pleural Fluid Body Fluid Culture - Preliminary 08/14/17 13:45 Fungal Culture - Preliminary Pleural Fluid 08/14/17 13:45 Acid Fast Bacilli Smear - Final Pleural Fluid Acid Fast Bacilli Culture - Preliminary Laboratory Results WBC 5.5 k/uL (3.8-10.6) 08/15/17 06:01 RBC 2.82 m/uL (3.80-5.40) L 08/15/17 06:01 Hgb 8.1 gm/dL (11.4-16.0) L 08/15/17 06:01 Hct 26.1 % (34.0-46.0) L 08/15/17 06:01 MCV 92.5 fL (80.0-100.0) 08/15/17 06:01 MCH 28.7 pg (25.0-35.0) 08/15/17 06:01 MCHC 31.0 g/dL (31.0-37.0) 08/15/17 06:01 RDW 14.1 % (11.5-15.5) 08/15/17 06:01 Plt Count 270 k/uL (150-450) 08/15/17 06:01 Neutrophils % 54 % 08/15/17 06:01 Neutrophils % (Manual) 72 % 08/12/17 15:02 Lymphocytes % 29 % 08/15/17 06:01 Lymphocytes % (Manual) 18 % 08/12/17 15:02 Monocytes % 5 % 08/15/17 06:01 Monocytes % (Manual) 5 % 08/12/17 15:02 Eosinophils % 7 % 08/15/17 06:01 Eosinophils % (Manual) 5 % 08/12/17 15:02 Basophils % 1 % 08/15/17 06:01 Neutrophils # 2.9 k/uL (1.3-7.7) 08/15/17 06:01 Neutrophils # (Manual) 2.95 k/uL (1.3-7.7) 08/12/17 15:02 Lymphocytes # 1.6 k/uL (1.0-4.8) 08/15/17 06:01 Lymphocytes # (Manual) 0.74 k/uL (1.0-4.8) L 08/12/17 15:02 Monocytes # 0.3 k/uL (0-1.0) 08/15/17 06:01 Monocytes # (Manual) 0.21 k/uL (0-1.0) 08/12/17 15:02 Eosinophils # 0.4 k/uL (0-0.7) 08/15/17 06:01 Eosinophils # (Manual) 0.21 k/uL (0-0.7) 08/12/17 15:02 Basophils # 0.1 k/uL (0-0.2) 08/15/17 06:01 Nucleated RBCs 0 /100 WBC (0-0) 08/12/17 15:02 Manual Slide Review Performed 08/12/17 15:02 Hypochromasia Moderate 08/15/17 06:01 Hypochromasia (manual) Present 08/12/17 15:02 Poikilocytosis Slight 08/15/17 06:01 Anisocytosis (manual) Present 08/12/17 15:02 Macrocytosis Slight 08/13/17 02:35 PT 12.6 sec (9.0-12.0) H 08/12/17 16:56 INR 1.3 (<1.2) H 08/12/17 16:56 APTT 35.0 sec (22.0-30.0) H 08/14/17 16:42 D-Dimer 1.89 mg/L FEU (<0.60) H 08/12/17 09:06 VBG pH 7.42 (7.31-7.41) H 08/12/17 09:33 VBG pCO2 48 mmHg (37-51) 08/12/17 09:33 VBG HCO3 30 mmol/L (24-28) H 08/12/17 09:33 Sodium 142 mmol/L (137-145) 08/15/17 06:01 Potassium 2.9 mmol/L (3.5-5.1) L* 08/15/17 20:03 Chloride 101 mmol/L (98-107) 08/15/17 06:01 Carbon Dioxide 31 mmol/L (22-30) H 08/15/17 06:01 Anion Gap 10 mmol/L 08/15/17 06:01 BUN 11 mg/dL (7-17) 08/15/17 06:01 Creatinine 1.44 mg/dL (0.52-1.04) H 08/15/17 06:01 Est GFR (CKD-EPI)AfAm 42 (>60 ml/min/1.73 sqM) 08/15/17 06:01 Est GFR (CKD-EPI)NonAf 36 (>60 ml/min/1.73 sqM) 08/15/17 06:01 Glucose 95 mg/dL (74-99) 08/15/17 06:01 POC Glucose (mg/dL) 91 mg/dL (75-99) 08/15/17 06:34 POC Glu Crisis Specialist ID Michelle Raygoza 08/15/17 06:34 Calcium 8.0 mg/dL (8.4-10.2) L 08/15/17 06:01 Phosphorus 4.7 mg/dL (2.5-4.5) H 08/13/17 02:35 Iron 26 ug/dL (50-170) L 08/13/17 02:35 TIBC 212 ug/dL (228-460) L 08/13/17 02:35 Iron Saturation 12.26 (12.00-45.00) 08/13/17 02:35 Ferritin 463.9 ng/mL (10.0-291.0) H 08/13/17 02:35 Total Bilirubin 0.3 mg/dL (0.2-1.3) 08/12/17 09:06 AST 9 U/L (14-36) L 08/12/17 09:06 ALT 31 U/L (9-52) 08/12/17 09:06 Alkaline Phosphatase 67 U/L (38-126) 08/12/17 09:06 Total Creatine Kinase 40 U/L (30-135) 08/12/17 21:10 CK-MB (CK-2) 3.4 ng/mL (0.0-2.4) H* 08/12/17 21:10 CK-MB (CK-2) Rel Index 8.5 08/12/17 21:10 Troponin I 0.040 ng/mL (0.000-0.034) H* 08/12/17 21:10 NT-Pro-B Natriuret Pep 71177 pg/mL 08/13/17 02:35 Total Protein 5.8 g/dL (6.3-8.2) L 08/12/17 09:06 Albumin 2.9 g/dL (3.5-5.0) L 08/12/17 09:06 Triglycerides 97 mg/dL (<150) 08/13/17 02:35 Cholesterol 122 mg/dL (<200) 08/13/17 02:35 LDL Cholesterol, Calc 46 mg/dL (0-99) 08/13/17 02:35 HDL Cholesterol 57 mg/dL (40-60) 08/13/17 02:35 Fluid Source Pleural 08/14/17 13:45 Fluid Color Yellow 08/14/17 13:45 Fluid Appearance Clear 08/14/17 13:45 Fluid RBC 270 /uL 08/14/17 13:45 Fluid Nucleated Cells 365 /uL 08/14/17 13:45 Fluid Polynuclear WBCs 11 % 08/14/17 13:45 Fluid Mononuclear WBCs 88 % 08/14/17 13:45 Fluid Eosinophils 1 % 08/14/17 13:45 Fluid Comment Few Mesothelial 08/14/17 13:45 Virus Source See Below 08/14/17 13:45 Viral Test See Below 08/14/17 13:45 Virus Analysis Interp See Below 08/14/17 13:45 Microbiology 08/13/17 10:30 Blood Blood Culture - Preliminary No Growth after 48 hours 08/13/17 10:30 Blood Blood Culture - Preliminary No Growth after 48 hours 08/12/17 09:06 Blood Blood Culture - Preliminary No Growth after 72 hours 08/14/17 13:45 Pleural Fluid Gram Stain - Preliminary 08/14/17 13:45 Pleural Fluid Body Fluid Culture - Preliminary 08/14/17 13:45 Pleural Fluid Fungal Culture - Preliminary 08/14/17 13:45 Pleural Fluid Acid Fast Bacilli Smear - Final 08/14/17 13:45 Pleural Fluid Acid Fast Bacilli Culture - Preliminary Assessment and Plan (1) Chest pain Current Visit: Yes Status: Acute Code(s): R07.9 - CHEST PAIN, UNSPECIFIED SNOMED Code(s): 55602699 (2) Hypoxia Current Visit: Yes Status: Acute Code(s): R09.02 - HYPOXEMIA SNOMED Code(s ): 176726720 (3) Non-caseating granuloma Narrative/Plan: 71-year-old female presents to Hospital from the [facility] with the sudden onset of increasing chest pain and shortness of breath. She has end-stage renal disease receiving hemodialysis. She is evidence of bilateral pleural effusions and pulmonary critical care is contemplating thoracentesis to improve her shortness of breath. At admission the patient did have evidence of 1 L of urine in her bladder and this was drained with a catheter, evidence of a markedly abnormal urinalysis and urine culture and blood culture are in progress. Antibiotic therapy with Rocephin is being utilized at this time pending further culture data. She clinically is showing improvement but was having some difficulty with hemodialysis due to relative hypotension. Her chest pain is improved. She likely was having sepsis from the infection of the urinary system as well as an obstructive uropathy from bladder outlet dysfunction. She is feeling somewhat better. As noted she did have a significant noncaseating granulomas in the lung at the time of her resection. The patient has had PCR probes performed at an outside academic center that were negative for Mycobacterium tuberculosis as well as non -tuberculosis mycobacterial. This does not exclude mycobacterial disease. When the patient is more stable a repeat bronchoscopy would be indicated for deep specimens to be obtained from the lung, these need to be bacterial cultures for Mycobacterium. This could then help guide the course of treatment. 08/14/2017 is status post thoracentesis and is feeling considerably better ready. About a Thousand cc of fluid was removed and this has helped her pulmonary status. She denying significant pain at this point in time. And tolerating dialysis modestly well hopefully with improved function will have a more effective dialysis session. 08/15/2017 continues to feel better status post the thoracentesis. Shortness of breath is improved. But is having some coughing which is bothering her at times. It is nonproductive. She is denying fevers or chills. Does have some dry scaly skin that is a bit pruritic. Robitussin will be added for her cough. Triamcinolone for her dry skin. The thoracentesis fluid cultures are all negative at this point in time. The patient may need a bronchoscopy at some time in the future for further sampling from the lung for evaluation of potential Mycobacterium infection Current Visit: Yes Status: Acute Code(s): L92.9 - GRANULOMATOUS DISORDER OF THE SKIN, SUBCU, UNSP SNOMED Code(s): 058023253
[2017-08-15] MEDS: cefTRIAXone IN SWFI 1,000 MG/10 ML SYRINGE IVP SCH (21:46)
[2017-08-15] MEDS: TRIAMCINOLONE 0.1% CREAM 80 GM TUBE TOPICAL SCH (21:47)
[2017-08-16] MEDS: IPRATROPIUM-ALBUTEROL 3 ML NEB INHALATION SCH ×6 (03:57→20:00)
[2017-08-16 05:04] LABS: Basophils # (A) 0.1 k/uL (0-0.2); Basophils % (A) 1 %; Eosinophils # (A) 0.7 k/uL (0-0.7); Eosinophils % (A) 9 %; HCT 29.4 % (34.0-46.0); Hypochromasia Marked; Lymphocytes # (A) 2.1 k/uL (1.0-4.8); Lymphocytes % (A) 26 %; MCH 28.5 pg (25.0-35.0); MCHC 30.5 g/dL (31.0-37.0); MCV 93.5 fL (80.0-100.0); Mean Platelet Volume 7.5; Monocytes # (A) 0.4 k/uL (0-1.0); Monocytes % (A) 5 %; Neutrophils # (A) 4.8 k/uL (1.3-7.7); Neutrophils % (A) 58 %; Platelet Count 302 k/uL (150-450); RBC 3.15 m/uL (3.80-5.40); RDW 14.5 % (11.5-15.5); WBC 8.3 k/uL (3.8-10.6)
[2017-08-16] MEDS: GABAPENTIN 300 MG CAP PO SCH ×3 (06:38→20:59)
[2017-08-16] MEDS: PANTOPRAZOLE 40 MG TABLET PO SCH ×2 (06:38→17:09)
[2017-08-16] MEDS: NYSTATIN 100,000 UNIT/ML SUSP 500,000 UNIT/5 ML CUP PO SCH ×4 (06:38→23:28)
[2017-08-16] MEDS: guaiFENesin 600 MG TABLET.ER PO SCH ×2 (09:06→20:59)
[2017-08-16] MEDS: METOPROLOL TARTRATE 25 MG TAB PO SCH ×2 (09:06→20:59)
[2017-08-16] MEDS: traMADol 50 MG TAB PO SCH ×2 (09:06→20:59)
[2017-08-16] MEDS: ASPIRIN 81 MG PO SCH (09:06)
[2017-08-16] MEDS: TRIAMCINOLONE 0.1% CREAM 80 GM TUBE TOPICAL SCH ×3 (09:07→20:59)
[2017-08-16] MEDS: FUROSEMIDE 10 MG/ML 10 ML VIAL IV SCH ×2 (09:07→20:59)
[2017-08-16] MEDS: SODIUM FERRIC GLUCONAT-SUCROSE 125 MG in SODIUM CHLORIDE 0.9% 100 ML IVPB SCH (09:27)
--- NOTE | 2017-08-16 11:39 | P.PN ---
Subjective Progress Note Date: 08/16/17 Principal diagnosis: Bilateral pleural effusions secondary to renal failure and fluid overload. This is a 71-year-old white female familiar to my service, patient was recently inpatient, and she underwent left upper lobectomy for what seems to be a necrotizing mass, however pathology ruled out malignancy, and it showed basically possible old granulomatous infection, cultures were pending. [place] that the patient may have had atypical mycobacterial infection involving the left upper lobe. Patient was eventually discharged to [facility], and she has been receiving dialysis for acute on chronic renal failure. Patient presented to the ER this morning complaining of sudden onset of shortness of breath, along with severe chest pain and she was noted to be hypotensive. Upon arrival to the ER, patient had an EKG showing normal sinus rhythm with nonspecific ST and T-wave changes in the inferior and anterior leads. Chest x-ray showed small to moderate left-sided pleural effusion ultrasound showed a 5.5 cm pocket in the left pleural space, and it also showed a right sided pleural effusion. Patient was admitted, and this consult was initiated. Patient has been compliant with her dialysis, and she did receive her dialysis yesterday. D-dimer was 1.89, and troponin was 0.032. Hemoglobin was 7.1. Patient was admitted, placed on heparin, seen by cardiology, and this consult was initiated. The patient herself is a poor historian, has underlying dementia, but most of the history was obtained from her . Patient denies any fever no chills no hemoptysis, presently no chest pain, and no shortness of breath at present during my evaluation. It was felt that the patient had atypical chest pain, and after reviewing her ultrasound of the chest , I recommended repeat chest x-ray after hemodialysis, and if the fluid remains unchanged in the left pleural space, may consider thoracentesis. Which will be diagnostic and therapeutic at the same time. Presently the patient is in no form of respiratory distress during my evaluation. The patient is seen again today 08/13/2017 in follow-up on the selective care unit. She is currently awake and alert. She is still somewhat dyspneic on exertion. She is requiring 6 L high flow nasal cannula to maintain O2 saturations in the 90s. Temperature 99.6. She is receiving hemodialysis. The plan was for 2.5 L to be removed however her blood pressure is not allowing that M probably 1 L all be removed. We'll plan for chest x-ray today shortly after dialysis to evaluate the pleural effusion. Blood cultures revealing no growth. Hemoglobin 7.8. White count 5.4. White count 1.81. BNP 16,300. The patient is seen again today 08/14/2017 in follow-up on the selective care unit. She continues with a moderate left-sided pleural effusion. The plan is for thoracentesis today. The heparin is currently on hold. She denies any worsening shortness of breath, cough or congestion. She is still requiring 5 L/ m per nasal cannula to maintain O2 saturations in the 90s. She was intolerant of much dialysis yesterday due to hypotension. Less than a liter was removed. Blood cultures reveal no growth. White count 5.9. Hemoglobin 7.8. Creatinine 1.10. The patient is seen again today 08/15/2017 in follow-up on the selective care unit. She is awake and alert in no acute distress. She is breathing easier today as compared to yesterday. She is now status post thoracentesis of the left chest. 900 mls of slightly yellow otherwise clear fluid was removed. Fluid analysis is pending. The chest x-ray revealed nearly complete resolution. She is maintaining good O2 saturations in the upper 90s on 4 L/m per nasal cannula. She's been afebrile. Reevaluated today on 08/16/2017, patient is doing relatively well, less shortness of breath, hardly any wheezing, no fever, no chills, no hemoptysis. Pleural effusion results are still pending, no chest x-ray was done on the last 2 days, I plan to repeat the chest x-ray in a.m. for follow-up on her bilateral pleural effusions and status post thoracentesis on the left side. CBC is relatively normal potassium is 4.0 today. Objective - Vital Signs Vital signs: Vital Signs Temp 97.2 F L 08/16/17 08:00 Pulse 88 08/16/17 08:14 Resp 16 08/16/17 08:00 BP 116/63 08/16/17 08:00 Pulse Ox 99 08/16/17 08:00 Intake & Output 08/15/17 08/16/17 08/16/17 18:59 06:59 18:59 Intake Total 700 200 240 Output Total 1600 3200 Balance -900 -3000 240 Weight 42.3 kg Intake: Intake, IV Titration 100 Amount Sodium Ferric Gluconat- 100 Sucrose 125 mg In Sodium Chloride 0.9% 100 ml @ 100 mls/hr IVPB DAILY [facility] Rx#:[id number] Oral 600 200 240 Output: Urine 1600 3200 Uretheral (Green) 1600 900 Other: Voiding Method Indwelling Catheter # Voids 1 - Exam GENERAL EXAM: Frail, weak. Alert, fairly comfortable in no apparent distress. HEAD: Normocephalic. EYES: Normal reaction of pupils, equal size. NOSE: Clear with pink turbinates. THROAT: No erythema or exudates. NECK: No masses, no JVD. CHEST: No chest wall deformity. LUNGS: Diminished in the bilateral posterior bases more so on the left. CVS: S1 and S2 normal with no audible murmur, regular rhythm. ABDOMEN: No hepatosplenomegaly, normal bowel sounds, no guarding or rigidity. SPINE: No scoliosis or deformity SKIN: No rashes CENTRAL NERVOUS SYSTEM: No focal deficits, tone is normal in all 4 extremities. EXTREMITIES: There is no peripheral edema. No clubbing, no cyanosis. Peripheral pulses are intact.m - Labs CBC & Chem 7: 08/16/17 04:04 08/16/17 04:04 Labs: Abnormal Lab Results - Last 24 Hours (Table) 08/15/17 08/15/17 08/16/17 Range/Units 15:28 20:03 04:04 RBC 3.15 L (3.80-5.40) m/uL Hgb 9.0 L (11.4-16.0) gm/dL Hct 29.4 L (34.0-46.0) % MCHC 30.5 L (31.0-37.0) g/dL Potassium 2.7 L* 2.9 L* (3.5-5.1) mmol/L Microbiology - Last 24 Hours (Table) 08/12/17 09:06 Blood Culture - Preliminary Blood No Growth after 96 hours 08/13/17 10:30 Blood Culture - Preliminary Blood No Growth after 48 hours 08/13/17 10:30 Blood Culture - Preliminary Blood No Growth after 48 hours 08/14/17 13:45 Gram Stain - Preliminary Pleural Fluid Body Fluid Culture - Preliminary Assessment and Plan Assessment: 1 atypical chest pain 2 acute hypoxic respiratory failure secondary to bilateral pleural effusions left greater than right. Status post left-sided thoracentesis with 900 and muscles of yellow fluid removed. Fluid analysis pending. 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 4 history of chronic kidney injury stage V, on hemodialysis. 5 history of multiple comorbidities including depression, chronic anemia, of chronic disease, Crohn's disease, history of shock liver, and history of hypoxic respiratory failure requiring intubation and mechanical ventilation, resolved. Recommendation: Continue present treatment plan, continue dialysis, repeat chest x-ray in a.m., and review the results of the pleural effusion once they are available. Consider discharge planning in the next 24-48 hours. Time with Patient: Less than 30
--- NOTE | 2017-08-16 14:10 | PN ---
PROGRESS NOTE DATE OF SERVICE: 08/16/17. PRESENTING COMPLAINT: Tired. INTERVAL HISTORY: This is a patient recently had left upper lobe lobectomy that pathology came back negative for infection and malignancy, admitted feeling weak, tired, status post thoracentesis on the left side. Appetite is very slowly improving. Feels very tired and run down. Seen by Physical therapy just about has sitting balance into the bed. Empirically on antibiotics. at the bedside. REVIEW OF SYSTEMS: Done for constitutional, cardiovascular, GI, pulmonary; relevant findings as above. The patient has a congested cough, but not able to bring up anything. CURRENT MEDICATIONS: Reviewed, IV ceftriaxone. EXAMINATION: Temp 97.2, pulse 88, respirations 20, blood pressure 116/63, pulse ox 99% on 5 L. GENERAL APPEARANCE: Sitting at the edge of the bed. Tired appearing. EYES: Pupils equal. Conjunctivae pale. HEENT: External nose and ears normal. Oral cavity normal. NECK: JVD unable to assess. Mass not palpable. RESPIRATORY: Effort increased. Lungs, decreased breath sounds, some crackles. CARDIOVASCULAR: First and second sounds, no edema. ABDOMEN: Soft, nontender. Liver and spleen not palpable. PSYCHIATRY: Alert and oriented x3. Mood and affect tired-appearing. INVESTIGATIONS: White count 8.3, hemoglobin 9, pleural fluid cultures are pending, but negative till now. ASSESSMENT: 1. Bilateral pleural effusion, large on the left, status post thoracenteses, . 2. End-stage kidney disease on hemodialysis. 3. Depression, not otherwise specified. 4. Chronic obstructive pulmonary disease in an ex-smoker. 5. Chronic fibromyalgia. 6. Gastroesophageal reflux disease. 7. 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 8. Recent left upper lobe lobectomy. Pathology negative for infection and malignancy. 9. Significant medical debility. The patient is just sitting balance right now. 10.Acute hypoxic respiratory failure probably from pneumonia and pleural effusion. 11.Moderate secondary pulmonary hypertension secondary probably from chronic obstructive pulmonary disease. 12.Possible pneumonia for which patient is on IV antibiotics. PLAN: Care was discussed with the at the bedside. Continue with therapy. Patient will need intensive physical therapy. Dr. Barakat is on the case. Continue current medication and treatment plan. Follow. MMODL / IJN: [id number] /
--- NOTE | 2017-08-16 14:55 | PN ---
PROGRESS NOTE The patient is seen for followup for acute kidney injury. She has been on hemodialysis. Dialysis was held yesterday. Patient currently is comfortable. She is maintained on IV Lasix. She has had good urine output of about 2.4 L. We will continue to evaluate her for possible need for dialysis again tomorrow. Her creatinine is up to 1.6 from 1.1. We will repeat labs in a.m. EXAMINATION: Today, blood pressure is 116/63, heart rate 88 per minute patient is afebrile. Examination of the heart S1, S2. Examination lungs decreased breath sounds at bases. Abdomen is soft, nontender. Examination lower extremities shows no evidence of edema. [employer] exam shows patient moving all 4 extremities. LAB: Show potassium 4.0. We do not have a creatinine from today. ASSESSMENT: 1. Acute kidney injury, hemodialysis dependent, status post last treatment on 08/13/2017. Patient was not dialyzed yesterday and we will continue to hold dialysis and repeat labs in a.m. and re-evaluate tomorrow for need for renal replacement therapy. The urine output has significantly increased about 2.4 L from yesterday. 2. Hypokalemia, status post replacement. 3. Anemia, multifactorial. No obvious bleeding noted at this time. The patient is maintained on Aranesp. 4. Iron deficiency currently on IV iron. PLAN: Continue with IV Lasix. CAESAR Gomez and repeat labs in a.m.. NATHAN / NESTOR: [id number] /
[2017-08-16] MEDS ORDERED: IBUPROFEN 800 MG TAB PO PRN (16:25)
[2017-08-16] MEDS: POTASSIUM CHLORIDE ER 20 MEQ TAB.ER PO SCH (17:09)
[2017-08-16] MEDS: AMITRIPTYLINE HCL 25 MG TAB PO SCH (20:59)
[2017-08-16] MEDS: cefTRIAXone IN SWFI 1,000 MG/10 ML SYRINGE IVP SCH (22:01)
[2017-08-17] MEDS: NYSTATIN 100,000 UNIT/ML SUSP 500,000 UNIT/5 ML CUP PO SCH ×4 (06:38→23:26)
[2017-08-17] MEDS: GABAPENTIN 300 MG CAP PO SCH ×3 (06:38→20:54)
[2017-08-17] MEDS: PANTOPRAZOLE 40 MG TABLET PO SCH ×2 (06:38→18:17)
[2017-08-17 06:50] LABS: Basophils # (A) 0.1 k/uL (0-0.2); Basophils % (A) 1 %; Eosinophils % (A) 10 %; HCT 30.9 % (34.0-46.0); HGB 9.2 gm/dL (11.4-16.0); Hypochromasia Marked; Lymphocytes # (A) 2.5 k/uL (1.0-4.8); Lymphocytes % (A) 26 %; MCH 28.3 pg (25.0-35.0); MCHC 29.9 g/dL (31.0-37.0); MCV 94.8 fL (80.0-100.0); Mean Platelet Volume 7.5; Monocytes # (A) 0.5 k/uL (0-1.0); Monocytes % (A) 5 %; Neutrophils # (A) 5.6 k/uL (1.3-7.7); Neutrophils % (A) 57 %; Platelet Count 355 k/uL (150-450); RBC 3.26 m/uL (3.80-5.40); RDW 14.6 % (11.5-15.5); WBC 9.8 k/uL (3.8-10.6)
[2017-08-17 06:58] LABS: Calcium 8.2 mg/dL (8.4-10.2); Potassium 4.6 mmol/L (3.5-5.1)
--- NOTE | 2017-08-17 07:29 | XR ---
EXAMINATION TYPE: XR chest 1V portable DATE OF EXAM: 08/17/2017 HISTORY: Shortness of breath. COMPARISON: 460 dictated TECHNIQUE: Single view of the chest is submitted. FINDINGS: Demonstrated are scattered senescent parenchymal change. Left lower lobe opacity may reflect infiltrate or effusion and/or atelectasis. The heart is stable. Hilar and mediastinal structures are within normal limits. Degenerative changes are seen of the dorsal spine. IMPRESSION: 1. Left lower lobe opacity may reflect infiltrate or effusion and/or atelectasis.
[2017-08-17] MEDS: IPRATROPIUM-ALBUTEROL 3 ML NEB INHALATION SCH ×4 (08:31→20:33)
[2017-08-17] MEDS: MIDODRINE 5 MG TAB PO SCH ×2 (09:02→18:16)
[2017-08-17] MEDS: guaiFENesin 600 MG TABLET.ER PO SCH ×2 (09:02→20:54)
[2017-08-17] MEDS: METOPROLOL TARTRATE 12.5 MG TAB PO SCH ×2 (09:02→20:54)
[2017-08-17] MEDS: ASPIRIN 81 MG PO SCH (09:02)
[2017-08-17] MEDS: traMADol 50 MG TAB PO SCH ×2 (09:03→20:56)
[2017-08-17] MEDS: FUROSEMIDE 10 MG/ML 4 ML VIAL IV SCH ×2 (09:03→20:53)
[2017-08-17] MEDS: TRIAMCINOLONE 0.1% CREAM 80 GM TUBE TOPICAL SCH ×3 (09:04→20:55)
[2017-08-17] MEDS: METOPROLOL TARTRATE 25 MG TAB PO SCH (09:06)
[2017-08-17] MEDS: SODIUM FERRIC GLUCONAT-SUCROSE 125 MG in SODIUM CHLORIDE 0.9% 100 ML IVPB SCH (10:20)
--- NOTE | 2017-08-17 12:09 | PN ---
PROGRESS NOTE Patient is seen for followup for acute kidney injury, hemodialysis dependent. The patient was maintained on hemodialysis as outpatient. However, she has been on hold for the past 5 days. The patient is maintained on IV Lasix. She has put out a lot of urine with total urine output close to 4 L. Patient did state that her blood pressure drops when she stands up and therefore she is not doing much. She had been short of breath and her respiratory status is fairly stable. Serum creatinine did go up to 1.8 from about 1.1 mg/dL, which was the day after dialysis. The patient has been getting Motrin on and off for pain and this was again discontinued this morning. I have advised her that we need to try and keep her off of all nephrotoxic agents since we are awaiting renal recovery. She can use narcotic agents and can continue with the Ultram for pain. PHYSICAL EXAMINATION: On examination today, blood pressure is 94/50, heart rate 101 per minute. Patient is afebrile. EXAMINATION OF THE HEART: S1, S2. EXAMINATION OF THE LUNGS: Bilateral breath sounds are heard. Abdomen is soft, nontender. Examination of the lower extremities shows no significant edema. [employer] exam is grossly intact. Patient is moving all 4 extremities. LABS: Labs show sodium 144, potassium 4.6, chloride 101, serum creatinine 1.8. Hemoglobin 9.2 g/dL. ASSESSMENT: 1. Acute kidney injury, acute tubular necrosis, currently nonoliguric with improved urine output. Patient has been on dialysis. However, her last dialysis was on 08/13/2017. We will continue to evaluate her on a daily basis for need for renal replacement therapy. Serum creatinine is higher. However, there are likely other reasons for the recent increase in creatinine, particularly given the low blood pressure and use of NSAIDs. I will decrease her IV diuretics. We will discontinue the Motrin and patient will be started on midodrine as well to help with her low blood pressures. 2. Volume overload, currently improved. 3. Hypokalemia secondary to diuresis, now improved. 4. Anemia with iron deficiency, status post IV iron with hemoglobin now at 9.2 g/dL. The patient is on Aranesp, which we will likely soon discontinue. 5. Possible pneumonia, maintained on IV antibiotics. 6. Bilateral pleural effusions, status post left thoracentesis. PLAN: Avoid all nephrotoxic agents including NSAIDs. We can use narcotics for pain. I will decrease the Lasix and add midodrine to help with the blood pressure. I will continue to hold off on dialysis for now as patient's renal function is improving. MMODL / IJN: [id number] /
[2017-08-17] MEDS: ALPRAZolam 0.25 MG TAB PO PRN ×2 (13:07→18:19)
--- NOTE | 2017-08-17 14:22 | P.PN ---
Subjective 71-year-old admitted for respiratory failure secondary to pulmonary edema and patient was initially on hemodialysis on this auscultation patient blood pressures O patient was started on midodrine by nephrology. Patient is still on for and half liters will try to wean it off possibility of discharge tomorrow patient is still on IV Lasix as per nephrology. Constitutional: Denied any fatigue denied any fever. Cardio vascular: denied any chest pain, palpitations Gastrointestinal denied any nausea vomiting Pulmonary: Denied any shortness of breath cough Neurologic denied any new focal deficits Objective - Vital Signs Vital signs: Vital Signs Temp 97.1 F L 08/17/17 12:00 Pulse 103 H 08/17/17 12:11 Resp 16 08/17/17 12:00 BP 85/59 08/17/17 12:00 Pulse Ox 98 08/17/17 12:00 Intake & Output 08/16/17 08/17/17 08/17/17 18:59 06:59 18:59 Intake Total 480 240 Output Total 400 1800 500 Balance 80 -1800 -260 Weight 41 kg Intake: Oral 480 240 Output: Urine 400 1800 500 Other: Voiding Method Indwelling Catheter Indwelling Catheter # Bowel Movements 1 - Exam PHYSICAL EXAMINATION: GENERAL: The patient is alert and oriented x3, not in any acute distress. Well developed, well nourished. Thin built on oxygen HEENT: Pupils are round and equally reacting to light. EOMI. No scleral icterus. No conjunctival pallor. Normocephalic, atraumatic. No pharyngeal erythema. No thyromegaly. CARDIOVASCULAR: S1 and S2 present. No murmurs, rubs, or gallops. PULMONARY: Patient does have bibasilar crackles without any wheezing ABDOMEN: Soft, nontender, nondistended, normoactive bowel sounds. No palpable organomegaly. MUSCULOSKELETAL: No joint swelling or deformity. EXTREMITIES: No cyanosis, clubbing, or pedal edema. NEUROLOGICAL: Gross neurological examination did not reveal any focal deficits. SKIN: No rashes. - Labs CBC & Chem 7: 08/17/17 05:59 08/17/17 05:59 Labs: Abnormal Lab Results - Last 24 Hours (Table) 08/17/17 08/17/17 Range/Units 05:59 05:59 RBC 3.26 L (3.80-5.40) m/uL Hgb 9.2 L (11.4-16.0) gm/dL Hct 30.9 L (34.0-46.0) % MCHC 29.9 L (31.0-37.0) g/dL Eosinophils # 1.0 H (0-0.7) k/uL Carbon Dioxide 34 H (22-30) mmol/L Creatinine 1.80 H (0.52-1.04) mg/dL Calcium 8.2 L (8.4-10.2) mg/dL Microbiology - Last 24 Hours (Table) 08/14/17 13:45 Gram Stain - Preliminary Pleural Fluid Body Fluid Culture - Preliminary 08/13/17 10:30 Blood Culture - Preliminary Blood No Growth after 96 hours 08/13/17 10:30 Blood Culture - Preliminary Blood No Growth after 96 hours 08/12/17 09:06 Blood Culture - Preliminary Blood No Growth after 120 hours Assessment and Plan Plan: -Acute hypoxic respiratory failure: Secondary to pulmonary edema from possible congestive heart failure along with end-stage renal disease patient may have chronic diastolic dysfunction with acute exacerbation patient is status post radical symphysis with them removal of 900 mL of fluid -History of left upper lobectomy which is contributing to her respiratory issues as well -End-stage renal disease on hemodialysis - Anemia of chronic disease -Depression -Crohn's disease - COPD without any acute exacerbation
--- NOTE | 2017-08-17 14:39 | P.PN ---
Subjective Progress Note Date: 08/17/17 Principal diagnosis: Bilateral pleural effusion secondary to renal failure and fluid overload This is a 71-year-old white female familiar to my service, patient was recently inpatient, and she underwent left upper lobectomy for what seems to be a necrotizing mass, however pathology ruled out malignancy, and it showed basically possible old granulomatous infection, cultures were pending. Bureau that the patient may have had atypical mycobacterial infection involving the left upper lobe. Patient was eventually discharged to [facility], and she has been receiving dialysis for acute on chronic renal failure. Patient presented to the ER this morning complaining of sudden onset of shortness of breath, along with severe chest pain and she was noted to be hypotensive. Upon arrival to the ER, patient had an EKG showing normal sinus rhythm with nonspecific ST and T-wave changes in the inferior and anterior leads. Chest x-ray showed small to moderate left-sided pleural effusion ultrasound showed a 5.5 cm pocket in the left pleural space, and it also showed a right sided pleural effusion. Patient was admitted, and this consult was initiated. Patient has been compliant with her dialysis, and she did receive her dialysis yesterday. D-dimer was 1.89, and troponin was 0.032. Hemoglobin was 7.1. Patient was admitted, placed on heparin, seen by cardiology, and this consult was initiated. The patient herself is a poor historian, has underlying dementia, but most of the history was obtained from her . Patient denies any fever no chills no hemoptysis, presently no chest pain, and no shortness of breath at present during my evaluation. It was felt that the patient had atypical chest pain, and after reviewing her ultrasound of the chest , I recommended repeat chest x-ray after hemodialysis, and if the fluid remains unchanged in the left pleural space, may consider thoracentesis. Which will be diagnostic and therapeutic at the same time. Presently the patient is in no form of respiratory distress during my evaluation. The patient is seen again today 08/13/2017 in follow-up on the selective care unit. She is currently awake and alert. She is still somewhat dyspneic on exertion. She is requiring 6 L high flow nasal cannula to maintain O2 saturations in the 90s. Temperature 99.6. She is receiving hemodialysis. The plan was for 2.5 L to be removed however her blood pressure is not allowing that M probably 1 L all be removed. We'll plan for chest x-ray today shortly after dialysis to evaluate the pleural effusion. Blood cultures revealing no growth. Hemoglobin 7.8. White count 5.4. White count 1.81. BNP 16,300. The patient is seen again today 08/14/2017 in follow-up on the selective care unit. She continues with a moderate left-sided pleural effusion. The plan is for thoracentesis today. The heparin is currently on hold. She denies any worsening shortness of breath, cough or congestion. She is still requiring 5 L/ m per nasal cannula to maintain O2 saturations in the 90s. She was intolerant of much dialysis yesterday due to hypotension. Less than a liter was removed. Blood cultures reveal no growth. White count 5.9. Hemoglobin 7.8. Creatinine 1.10. The patient is seen again today 08/15/2017 in follow-up on the selective care unit. She is awake and alert in no acute distress. She is breathing easier today as compared to yesterday. She is now status post thoracentesis of the left chest. 900 mls of slightly yellow otherwise clear fluid was removed. Fluid analysis is pending. The chest x-ray revealed nearly complete resolution. She is maintaining good O2 saturations in the upper 90s on 4 L/m per nasal cannula. She's been afebrile. Reevaluated today on 08/16/2017, patient is doing relatively well, less shortness of breath, hardly any wheezing, no fever, no chills, no hemoptysis. Pleural effusion results are still pending, no chest x-ray was done on the last 2 days, I plan to repeat the chest x-ray in a.m. for follow-up on her bilateral pleural effusions and status post thoracentesis on the left side. CBC is relatively normal potassium is 4.0 today. On 08/17/2017 she seen in follow-up. She is sitting up in the chair, denies any acute distress, denies any worsening dyspnea. Currently on 49 have liters per nasal cannula, with O2 sat 98%. Slightly hypotensive, with systolic blood pressure in the 80s to 90s millimeters of mercury, and diastolic blood pressure in the 50s millimeters of mercury, however she remains asymptomatic, she is awake alert, denies any chest pain or dyspnea. Slightly tachycardic with heart rate up to 101 BPM. Afebrile. Lung sounds diminished over right lower lobe, with a a few scattered rhonchi. Chest x-ray shows small right pleural effusion. Patient underwent left thoracentesis by Dr. Gandara for 2017 with removal of 900 mL of pleural fluid. Pleural fluid cytology is still pending, pleural fluid analysis showed low total protein of 2.8, and fluid LDH of 83, consistent with transudative pleural fluid. Pleural fluid cultures are pending. Patient continues on empiric antibiotic coverage in the form of Rocephin, she is receiving IV diuretics of Lasix 40 mg every 12 hours, nebulized treatments. She is maintaining negative fluid balance, she is in - 1720 ML fluid balance over the last 24 hours. No swelling in bilateral lower extremities noted. Objective - Vital Signs Vital signs: Vital Signs Temp 97.1 F L 08/17/17 12:00 Pulse 103 H 08/17/17 12:11 Resp 16 08/17/17 12:00 BP 85/59 08/17/17 12:00 Pulse Ox 98 08/17/17 12:00 Intake & Output 08/16/17 08/17/17 08/17/17 18:59 06:59 18:59 Intake Total 480 240 Output Total 400 1800 650 Balance 80 -1800 -410 Weight 41 kg Intake: Oral 480 240 Output: Urine 400 1800 650 Other: Voiding Method Indwelling Catheter Indwelling Catheter # Bowel Movements 1 - Exam GENERAL EXAM: Frail, weak. Alert, fairly comfortable in no apparent distress. Sitting up in the chair, on 4 l per nasal cannula, denies any dyspnea HEAD: Normocephalic. EYES: Normal reaction of pupils, equal size. NOSE: Clear with pink turbinates. THROAT: No erythema or exudates. NECK: No masses, no JVD. CHEST: No chest wall deformity. LUNGS: Diminished in the bilateral posterior bases more so on the left. A few scattered rhonchi CVS: S1 and S2 normal with no audible murmur, regular rhythm. ABDOMEN: No hepatosplenomegaly, normal bowel sounds, no guarding or rigidity. SPINE: No scoliosis or deformity SKIN: No rashes CENTRAL NERVOUS SYSTEM: No focal deficits, tone is normal in all 4 extremities. EXTREMITIES: There is no peripheral edema. No clubbing, no cyanosis. Peripheral pulses are intact.m - Labs CBC & Chem 7: 04/09/18 05:59 08/17/17 05:59 Labs: Abnormal Lab Results - Last 24 Hours (Table) 08/17/17 08/17/17 Range/Units 05:59 05:59 RBC 3.26 L (3.80-5.40) m/uL Hgb 9.2 L (11.4-16.0) gm/dL Hct 30.9 L (34.0-46.0) % MCHC 29.9 L (31.0-37.0) g/dL Eosinophils # 1.0 H (0-0.7) k/uL Carbon Dioxide 34 H (22-30) mmol/L Creatinine 1.80 H (0.52-1.04) mg/dL Calcium 8.2 L (8.4-10.2) mg/dL Microbiology - Last 24 Hours (Table) 08/14/17 13:45 Gram Stain - Preliminary Pleural Fluid Body Fluid Culture - Preliminary 08/13/17 10:30 Blood Culture - Preliminary Blood No Growth after 96 hours 08/13/17 10:30 Blood Culture - Preliminary Blood No Growth after 96 hours 08/12/17 09:06 Blood Culture - Preliminary Blood No Growth after 120 hours Assessment and Plan Plan: Assessment: 1 atypical chest pain 2 acute hypoxic respiratory failure secondary to bilateral pleural effusions left greater than right. Status post left-sided thoracentesis with 900 and muscles of yellow fluid removed. 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 4 history of chronic kidney injury stage V, on hemodialysis. 5 history of multiple comorbidities including depression, chronic anemia, of chronic disease, Crohn's disease, history of shock liver, and history of hypoxic respiratory failure requiring intubation and mechanical ventilation, resolved. Plan: Continue with current empiric antibiotic coverage in the form of Rocephin, will await the final cultures of the pleural fluid analysis. Continue IV diuretics per nephrology recommendations, patient is maintaining negative fluid balance. Weaning FiO2, encourage activity as tolerated. Continue with nebulized treatments, continue to follow. His chest x-ray shows small right-sided pleural effusion, not enough to drain. I performed a history & physical examination of the patient and discussed their management with my nurse practitioner, Angela Garibay. I reviewed the nurse practitioner's note and agree with the documented findings and plan of care. Lung sounds are positive for diminishedt lung sounds over right lower lobe. The findings and the impression was discussed with the patient. I attest to the documentation by the nurse practitioner. Time with Patient: Less than 30
[2017-08-17] MEDS: POTASSIUM CHLORIDE ER 20 MEQ TAB.ER PO SCH (18:16)
[2017-08-17] MEDS: AMITRIPTYLINE HCL 25 MG TAB PO SCH (20:53)
[2017-08-17] MEDS: cefTRIAXone IN SWFI 1,000 MG/10 ML SYRINGE IVP SCH (20:56)
--- NOTE | 2017-08-17 21:29 | P.PN ---
Subjective Progress Note Date: 08/17/17 Principal diagnosis: Shortness of breath 71-year-old female presents from the extended care facility with chest pain and increasing shortness of breath. She has a known history of the left upper lobe lesion and was found the outpatient setting over the last many months. There were some changes is noted by computed tomography scan and PET scan and patient elected for a resection rather than a biopsy. The patient surgery actually went quite well she was extubated after the procedure but on the third day she had a major change in her status. She developed what appears to be septic shock and required transfer to the intensive care unit and treated with BiPAP and intubation. She is not evidence of acute renal failure as well as shock liver and resultant consumptive coagulopathy and anemia. Eventually she improved and was discharged to extended care receiving hemodialysis. She has been doing relatively well with her dialysis but on the day admission had the sudden onset of increasing shortness of breath and chest pain and cascades been admitted and seen by nephrology, pulmonary critical care and cardiology. Goal is to try to remove some of her excess fluid which may then help her shortness of breath. She has been seen by pulmonary and they're contemplating thoracentesis to also attempts to improve her shortness of breath more rapidly. 08/14/2017 reveals the patient to be feeling somewhat better at this time. Thoracentesis has occurred for about 1000 mL in this is allowed a marked improvement of her shortness of breath. She'll continue to have hemodialysis to improve her volume status. She relates that her chest pain is improved. 08/15/2017 patient feels considerably better today overall. Other than some coughing she's feeling better. She is much less short of breath. Energy level is improved. Has noticed a bit of ongoing dryness and rash to her legs with mild itching. Denies fevers or chills 08/17/2017 patient continued to feel better. Less short of breath no other new acute complaints today Objective - Vital Signs Vital signs: Vital Signs Temp 97.3 F L 08/17/17 16:00 Pulse 111 H 08/17/17 20:55 Resp 18 08/17/17 16:00 BP 110/70 08/17/17 16:00 Pulse Ox 100 08/17/17 20:33 Intake & Output 08/17/17 08/17/17 08/18/17 06:59 18:59 06:59 Intake Total 360 Output Total 1800 1450 Balance -1800 -1090 Weight 41 kg Intake: Oral 360 Output: Urine 1800 1450 Other: Voiding Method Indwelling Catheter Bedside Commode Bedpan # Bowel Movements 1 - Exam 71-year-old woman with a small and slight build is in no distress, receiving hemodialysis HEENT: Anicteric conjunctiva are pink and moist nasal mucosa grossly intact without significant lesions, there is no thrush. Neck: The neck is supple without significant lymphadenopathy or thyromegaly. Lungs: Symmetrical air entry is noted. Few expiratory wheezes are heard. Is now much improved aeration to the left base. Heart: Regular rate and rhythm with an audible S1-S2, no S3 no S4. There is no significant murmur click or rub, PMI was nondisplaced. Abdomen: Positive bowel sounds soft and nontender without palpable masses or organomegaly. There was no guarding or rebound. Extremities: The upper extremities have excellent pulses they are symmetric, no significant petechiae or telangiectasia. No splinter hemorrhages were noted. There is some lower extremity edema pulses are 2+ and symmetric The catheter for hemodialysis right anterior chest wall is intact without erythema or tenderness Neuro: Awake alert oriented to person seems comfortable and there are no noted acute neurological deficits Skin there is a dry scaly rash on both legs it is not open or draining. The skin is dry but responding to topical therapy - Labs CBC & Chem 7: 08/17/17 05:59 08/17/17 05:59 Labs: Abnormal Lab Results - Last 24 Hours (Table) 08/17/17 08/17/17 Range/Units 05:59 05:59 RBC 3.26 L (3.80-5.40) m/uL Hgb 9.2 L (11.4-16.0) gm/dL Hct 30.9 L (34.0-46.0) % MCHC 29.9 L (31.0-37.0) g/dL Eosinophils # 1.0 H (0-0.7) k/uL Carbon Dioxide 34 H (22-30) mmol/L Creatinine 1.80 H (0.52-1.04) mg/dL Calcium 8.2 L (8.4-10.2) mg/dL Microbiology - Last 24 Hours (Table) 08/14/17 13:45 Gram Stain - Preliminary Pleural Fluid Body Fluid Culture - Preliminary 08/13/17 10:30 Blood Culture - Preliminary Blood No Growth after 96 hours 08/13/17 10:30 Blood Culture - Preliminary Blood No Growth after 96 hours 08/12/17 09:06 Blood Culture - Preliminary Blood No Growth after 120 hours Laboratory Results WBC 9.8 k/uL (3.8-10.6) 08/17/17 05:59 RBC 3.26 m/uL (3.80-5.40) L 08/17/17 05:59 Hgb 9.2 gm/dL (11.4-16.0) L 08/17/17 05:59 Hct 30.9 % (34.0-46.0) L 08/17/17 05:59 MCV 94.8 fL (80.0-100.0) 08/17/17 05:59 MCH 28.3 pg (25.0-35.0) 08/17/17 05:59 MCHC 29.9 g/dL (31.0-37.0) L 08/17/17 05:59 RDW 14.6 % (11.5-15.5) 08/17/17 05:59 Plt Count 355 k/uL (150-450) 08/17/17 05:59 Neutrophils % 57 % 08/17/17 05:59 Neutrophils % (Manual) 72 % 08/12/17 15:02 Lymphocytes % 26 % 08/17/17 05:59 Lymphocytes % (Manual) 18 % 08/12/17 15:02 Monocytes % 5 % 08/17/17 05:59 Monocytes % (Manual) 5 % 08/12/17 15:02 Eosinophils % 10 % 08/17/17 05:59 Eosinophils % (Manual) 5 % 08/12/17 15:02 Basophils % 1 % 08/17/17 05:59 Neutrophils # 5.6 k/uL (1.3-7.7) 08/17/17 05:59 Neutrophils # (Manual) 2.95 k/uL (1.3-7.7) 08/12/17 15:02 Lymphocytes # 2.5 k/uL (1.0-4.8) 08/17/17 05:59 Lymphocytes # (Manual) 0.74 k/uL (1.0-4.8) L 08/12/17 15:02 Monocytes # 0.5 k/uL (0-1.0) 08/17/17 05:59 Monocytes # (Manual) 0.21 k/uL (0-1.0) 08/12/17 15:02 Eosinophils # 1.0 k/uL (0-0.7) H 08/17/17 05:59 Eosinophils # (Manual) 0.21 k/uL (0-0.7) 08/12/17 15:02 Basophils # 0.1 k/uL (0-0.2) 08/17/17 05:59 Nucleated RBCs 0 /100 WBC (0-0) 08/12/17 15:02 Manual Slide Review Performed 08/12/17 15:02 Hypochromasia Marked 08/17/17 05:59 Hypochromasia (manual) Present 08/12/17 15:02 Poikilocytosis Slight 08/15/17 06:01 Anisocytosis (manual) Present 08/12/17 15:02 Macrocytosis Slight 08/13/17 02:35 PT 12.6 sec (9.0-12.0) H 08/12/17 16:56 INR 1.3 (<1.2) H 08/12/17 16:56 APTT 35.0 sec (22.0-30.0) H 08/14/17 16:42 D-Dimer 1.89 mg/L FEU (<0.60) H 08/12/17 09:06 VBG pH 7.42 (7.31-7.41) H 08/12/17 09:33 VBG pCO2 48 mmHg (37-51) 08/12/17 09:33 VBG HCO3 30 mmol/L (24-28) H 08/12/17 09:33 Sodium 144 mmol/L (137-145) 08/17/17 05:59 Potassium 4.6 mmol/L (3.5-5.1) 08/17/17 05:59 Chloride 101 mmol/L (98-107) 08/17/17 05:59 Carbon Dioxide 34 mmol/L (22-30) H 08/17/17 05:59 Anion Gap 9 mmol/L 08/17/17 05:59 BUN 16 mg/dL (7-17) 08/17/17 05:59 Creatinine 1.80 mg/dL (0.52-1.04) H 08/17/17 05:59 Est GFR (CKD-EPI)AfAm 32 (>60 ml/min/1.73 sqM) 08/17/17 05:59 Est GFR (CKD-EPI)NonAf 28 (>60 ml/min/1.73 sqM) 08/17/17 05:59 Glucose 94 mg/dL (74-99) 08/17/17 05:59 POC Glucose (mg/dL) 91 mg/dL (75-99) 08/15/17 06:34 POC Glu Locator Specialist ID Michelle Raygoza 08/15/17 06:34 Calcium 8.2 mg/dL (8.4-10.2) L 08/17/17 05:59 Phosphorus 4.7 mg/dL (2.5-4.5) H 08/13/17 02:35 Iron 26 ug/dL (50-170) L 08/13/17 02:35 TIBC 212 ug/dL (228-460) L 08/13/17 02:35 Iron Saturation 12.26 (12.00-45.00) 08/13/17 02:35 Ferritin 463.9 ng/mL (10.0-291.0) H 08/13/17 02:35 Total Bilirubin 0.3 mg/dL (0.2-1.3) 08/12/17 09:06 AST 9 U/L (14-36) L 08/12/17 09:06 ALT 31 U/L (9-52) 08/12/17 09:06 Alkaline Phosphatase 67 U/L (38-126) 08/12/17 09:06 Total Creatine Kinase 40 U/L (30-135) 08/12/17 21:10 CK-MB (CK-2) 3.4 ng/mL (0.0-2.4) H* 08/12/17 21:10 CK-MB (CK-2) Rel Index 8.5 08/12/17 21:10 Troponin I 0.040 ng/mL (0.000-0.034) H* 08/12/17 21:10 NT-Pro-B Natriuret Pep 00686 pg/mL 08/13/17 02:35 Total Protein 5.8 g/dL (6.3-8.2) L 08/12/17 09:06 Albumin 2.9 g/dL (3.5-5.0) L 08/12/17 09:06 Triglycerides 97 mg/dL (<150) 08/13/17 02:35 Cholesterol 122 mg/dL (<200) 08/13/17 02:35 LDL Cholesterol, Calc 46 mg/dL (0-99) 08/13/17 02:35 HDL Cholesterol 57 mg/dL (40-60) 08/13/17 02:35 Fluid Source Pleural 08/14/17 13:45 Fluid Color Yellow 08/14/17 13:45 Fluid Appearance Clear 08/14/17 13:45 Fluid RBC 270 /uL 08/14/17 13:45 Fluid Nucleated Cells 365 /uL 08/14/17 13:45 Fluid Polynuclear WBCs 11 % 08/14/17 13:45 Fluid Mononuclear WBCs 88 % 08/14/17 13:45 Fluid Eosinophils 1 % 08/14/17 13:45 Body Fluid Glucose Source Pleural Fluid 08/14/17 13:45 Fluid Glucose 93 mg/dL 08/14/17 13:45 Body Fluid Protein Source Pleural Fluid 08/14/17 13:45 Fluid Total Protein 2800 mg/dL 08/14/17 13:45 Body Fluid LDH Source Pleural Fluid 08/14/17 13:45 Fluid LDH 83 U/L 08/14/17 13:45 Body Fluid Amylase Source Pleural Fluid 08/14/17 13:45 Fluid Amylase 68 U/L 08/14/17 13:45 Fluid Comment Few Mesothelial 08/14/17 13:45 Virus Source See Below 08/14/17 13:45 Viral Test See Below 08/14/17 13:45 Virus Analysis Interp See Below 08/14/17 13:45 Microbiology 08/14/17 13:45 Pleural Fluid Gram Stain - Preliminary 08/14/17 13:45 Pleural Fluid Body Fluid Culture - Preliminary 08/13/17 10:30 Blood Blood Culture - Preliminary No Growth after 96 hours 08/13/17 10:30 Blood Blood Culture - Preliminary No Growth after 96 hours 08/12/17 09:06 Blood Blood Culture - Preliminary No Growth after 120 hours 08/14/17 13:45 Pleural Fluid Fungal Culture - Preliminary 08/14/17 13:45 Pleural Fluid Acid Fast Bacilli Smear - Final 08/14/17 13:45 Pleural Fluid Acid Fast Bacilli Culture - Preliminary Assessment and Plan (1) Chest pain Current Visit: Yes Status: Acute Code(s): R07.9 - CHEST PAIN, UNSPECIFIED SNOMED Code(s): 96904158 (2) Hypoxia Current Visit: Yes Status: Acute Code(s): R09.02 - HYPOXEMIA SNOMED Code(s ): 655371427 (3) Non-caseating granuloma Narrative/Plan: 71-year-old female presents to Hospital from the [facility] care facility with the sudden onset of increasing chest pain and shortness of breath. She has end-stage renal disease receiving hemodialysis. She is evidence of bilateral pleural effusions and pulmonary critical care is contemplating thoracentesis to improve her shortness of breath. At admission the patient did have evidence of 1 L of urine in her bladder and this was drained with a catheter, evidence of a markedly abnormal urinalysis and urine culture and blood culture are in progress. Antibiotic therapy with Rocephin is being utilized at this time pending further culture data. She clinically is showing improvement but was having some difficulty with hemodialysis due to relative hypotension. Her chest pain is improved. She likely was having sepsis from the infection of the urinary system as well as an obstructive uropathy from bladder outlet dysfunction. She is feeling somewhat better. As noted she did have a significant noncaseating granulomas in the lung at the time of her resection. The patient has had PCR probes performed at an outside academic center that were negative for Mycobacterium tuberculosis as well as non -tuberculosis mycobacterial. This does not exclude mycobacterial disease. When the patient is more stable a repeat bronchoscopy would be indicated for deep specimens to be obtained from the lung, these need to be bacterial cultures for Mycobacterium. This could then help guide the course of treatment. 08/14/2017 is status post thoracentesis and is feeling considerably better ready. About a Thousand cc of fluid was removed and this has helped her pulmonary status. She denying significant pain at this point in time. And tolerating dialysis modestly well hopefully with improved function will have a more effective dialysis session. 08/15/2017 continues to feel better status post the thoracentesis. Shortness of breath is improved. But is having some coughing which is bothering her at times. It is nonproductive. She is denying fevers or chills. Does have some dry scaly skin that is a bit pruritic. Robitussin will be added for her cough. Triamcinolone for her dry skin. The thoracentesis fluid cultures are all negative at this point in time. The patient may need a bronchoscopy at some time in the future for further sampling from the lung for evaluation of potential Mycobacterium infection 08/17/2017 patient continues to have improvement of her status after the thoracentesis. Her shortness of breath continues to improve her energy level is improved. She was working with physical therapy today for 15 minutes. It is noted that all cultures are negative. Patient may need a bronchoscopy in the future for further sampling from the lung for further evaluation of potential Mycobacterium infection. Overall she is improved. She is on Rocephin empirically and the course should be limited to 7 days. Current Visit: Yes Status: Acute Code(s): L92.9 - GRANULOMATOUS DISORDER OF THE SKIN, SUBCU, UNSP SNOMED Code(s): 965128086
[2017-08-18] MEDS: MIDODRINE 5 MG TAB PO SCH ×2 (06:15→17:19)
[2017-08-18] MEDS: NYSTATIN 100,000 UNIT/ML SUSP 500,000 UNIT/5 ML CUP PO SCH ×4 (06:15→22:10)
[2017-08-18] MEDS: PANTOPRAZOLE 40 MG TABLET PO SCH ×2 (06:15→17:18)
[2017-08-18] MEDS: GABAPENTIN 300 MG CAP PO SCH ×3 (06:15→20:56)
[2017-08-18 06:41] LABS: Basophils # (A) 0.1 k/uL (0-0.2); Basophils % (A) 1 %; Eosinophils # (A) 1.4 k/uL (0-0.7); Eosinophils % (A) 11 %; HCT 32.6 % (34.0-46.0); HGB 9.7 gm/dL (11.4-16.0); Hypochromasia Marked; Lymphocytes # (A) 2.6 k/uL (1.0-4.8); Lymphocytes % (A) 20 %; MCH 28.1 pg (25.0-35.0); MCHC 29.7 g/dL (31.0-37.0); MCV 94.7 fL (80.0-100.0); Mean Platelet Volume 7.6; Monocytes # (A) 0.5 k/uL (0-1.0); Monocytes % (A) 4 %; Neutrophils # (A) 8.5 k/uL (1.3-7.7); Neutrophils % (A) 64 %; Platelet Count 451 k/uL (150-450); RBC 3.44 m/uL (3.80-5.40); RDW 14.6 % (11.5-15.5); WBC 13.3 k/uL (3.8-10.6)
[2017-08-18 06:49] LABS: Calcium 7.9 mg/dL (8.4-10.2); Potassium 4.5 mmol/L (3.5-5.1)
[2017-08-18] MEDS: METOPROLOL TARTRATE 12.5 MG TAB PO SCH ×2 (08:00→20:56)
[2017-08-18] MEDS: traMADol 50 MG TAB PO SCH ×2 (08:00→21:04)
[2017-08-18] MEDS ORDERED: DARBEPOETIN ALFA 40 MCG/0.4 ML SYRINGE SQ SCH (08:00)
[2017-08-18] MEDS: ASPIRIN 81 MG PO SCH (08:00)
[2017-08-18] MEDS: TRIAMCINOLONE 0.1% CREAM 80 GM TUBE TOPICAL SCH ×3 (08:01→20:57)
[2017-08-18] MEDS: guaiFENesin 600 MG TABLET.ER PO SCH ×2 (08:01→20:56)
[2017-08-18] MEDS: FUROSEMIDE 10 MG/ML 4 ML VIAL IV SCH ×2 (08:01→20:54)
--- NOTE | 2017-08-18 08:04 | XR ---
EXAMINATION TYPE: XR chest 1V portable DATE OF EXAM: 08/18/2017 Comparison: 08/17/2017 Clinical History: 71-year-old female PLEURAL EFFUSION Findings: Heart normal size. Aorta and pulmonary vasculature within normal limits. Right sided double lumen hem odialysis catheter with tips at the cavoatrial junction. Bilateral nipple shadows are demonstrated. C ontinued small left pleural effusion with adjacent left basilar and retrocardiac opacity. Impression: Stable small left pleural effusion with a adjacent left basilar retrocardiac atelectasis and/or conso lidation.
[2017-08-18] MEDS: IPRATROPIUM-ALBUTEROL 3 ML NEB INHALATION SCH ×4 (08:46→20:40)
[2017-08-18 10:48] VITALS: BMI 17.5
[2017-08-18] MEDS: ALPRAZolam 0.25 MG TAB PO PRN (11:40)
[2017-08-18] MEDS: ERGOCALCIFEROL 50,000 UNIT CAP PO SCH (11:40)
[2017-08-18] MEDS ORDERED: MIDODRINE 5 MG TAB PO STA (12:26)
--- NOTE | 2017-08-18 13:23 | P.PN ---
Subjective Progress Note Date: 08/18/17 Principal diagnosis: Moderate left-sided pleural effusion This is a 71-year-old white female familiar to my service, patient was recently inpatient, and she underwent left upper lobectomy for what seems to be a necrotizing mass, however pathology ruled out malignancy, and it showed basically possible old granulomatous infection, cultures were pending. [place] that the patient may have had atypical mycobacterial infection involving the left upper lobe. Patient was eventually discharged to [facility], and she has been receiving dialysis for acute on chronic renal failure. Patient presented to the ER this morning complaining of sudden onset of shortness of breath, along with severe chest pain and she was noted to be hypotensive. Upon arrival to the ER, patient had an EKG showing normal sinus rhythm with nonspecific ST and T-wave changes in the inferior and anterior leads. Chest x-ray showed small to moderate left-sided pleural effusion ultrasound showed a 5.5 cm pocket in the left pleural space, and it also showed a right sided pleural effusion. Patient was admitted, and this consult was initiated. Patient has been compliant with her dialysis, and she did receive her dialysis yesterday. D-dimer was 1.89, and troponin was 0.032. Hemoglobin was 7.1. Patient was admitted, placed on heparin, seen by cardiology, and this consult was initiated. The patient herself is a poor historian, has underlying dementia, but most of the history was obtained from her . Patient denies any fever no chills no hemoptysis, presently no chest pain, and no shortness of breath at present during my evaluation. It was felt that the patient had atypical chest pain, and after reviewing her ultrasound of the chest , I recommended repeat chest x-ray after hemodialysis, and if the fluid remains unchanged in the left pleural space, may consider thoracentesis. Which will be diagnostic and therapeutic at the same time. Presently the patient is in no form of respiratory distress during my evaluation. The patient is seen again today 08/13/2017 in follow-up on the selective care unit. She is currently awake and alert. She is still somewhat dyspneic on exertion. She is requiring 6 L high flow nasal cannula to maintain O2 saturations in the 90s. Temperature 99.6. She is receiving hemodialysis. The plan was for 2.5 L to be removed however her blood pressure is not allowing that M probably 1 L all be removed. We'll plan for chest x-ray today shortly after dialysis to evaluate the pleural effusion. Blood cultures revealing no growth. Hemoglobin 7.8. White count 5.4. White count 1.81. BNP 16,300. The patient is seen again today 08/14/2017 in follow-up on the selective care unit. She continues with a moderate left-sided pleural effusion. The plan is for thoracentesis today. The heparin is currently on hold. She denies any worsening shortness of breath, cough or congestion. She is still requiring 5 L/ m per nasal cannula to maintain O2 saturations in the 90s. She was intolerant of much dialysis yesterday due to hypotension. Less than a liter was removed. Blood cultures reveal no growth. White count 5.9. Hemoglobin 7.8. Creatinine 1.10. The patient is seen again today 08/15/2017 in follow-up on the selective care unit. She is awake and alert in no acute distress. She is breathing easier today as compared to yesterday. She is now status post thoracentesis of the left chest. 900 mls of slightly yellow otherwise clear fluid was removed. Fluid analysis is pending. The chest x-ray revealed nearly complete resolution. She is maintaining good O2 saturations in the upper 90s on 4 L/m per nasal cannula. She's been afebrile. Reevaluated today on 08/16/2017, patient is doing relatively well, less shortness of breath, hardly any wheezing, no fever, no chills, no hemoptysis. Pleural effusion results are still pending, no chest x-ray was done on the last 2 days, I plan to repeat the chest x-ray in a.m. for follow-up on her bilateral pleural effusions and status post thoracentesis on the left side. CBC is relatively normal potassium is 4.0 today. On 08/17/2017 she seen in follow-up. She is sitting up in the chair, denies any acute distress, denies any worsening dyspnea. Currently on 49 have liters per nasal cannula, with O2 sat 98%. Slightly hypotensive, with systolic blood pressure in the 80s to 90s millimeters of mercury, and diastolic blood pressure in the 50s millimeters of mercury, however she remains asymptomatic, she is awake alert, denies any chest pain or dyspnea. Slightly tachycardic with heart rate up to 101 BPM. Afebrile. Lung sounds diminished over right lower lobe, with a a few scattered rhonchi. Chest x-ray shows small right pleural effusion. Patient underwent left thoracentesis by Dr. Gandara for 2017 with removal of 900 mL of pleural fluid. Pleural fluid cytology is still pending, pleural fluid analysis showed low total protein of 2.8, and fluid LDH of 83, consistent with transudative pleural fluid. Pleural fluid cultures are pending. Patient continues on empiric antibiotic coverage in the form of Rocephin, she is receiving IV diuretics of Lasix 40 mg every 12 hours, nebulized treatments. She is maintaining negative fluid balance, she is in - 1720 ML fluid balance over the last 24 hours. No swelling in bilateral lower extremities noted. The patient is seen today 08/18/2017 in follow-up on the selective care unit. She is currently awake and alert in no acute distress. She is breathing easier today as compared to yesterday. Chest x-ray reveals stable small left pleural effusion with adjacent atelectasis. She is maintaining good O2 saturations in the 90s on 3 L/m per nasal cannula. Current blood pressure 92/45 with a mean of 60. White count 13.3. Hemoglobin 9.7. Creatinine 1.62. Objective - Vital Signs Vital signs: Vital Signs Temp 98 F 08/18/17 04:00 Pulse 100 08/18/17 11:50 Resp 20 08/18/17 11:43 BP 92/45 08/18/17 11:43 Pulse Ox 92 L 08/18/17 11:43 Intake & Output 08/17/17 08/18/17 08/18/17 18:59 06:59 18:59 Intake Total 360 20 240 Output Total 1450 700 200 Balance -1090 -680 40 Weight 40.8 kg 40.8 kg Intake: IV 20 0.9 20 Oral 360 240 Output: Urine 1450 700 200 Other: Voiding Method Bedside Commode Bedside Commode Bedside Commode Bedpan Bedpan Bedpan # Voids 1 0 # Bowel Movements 1 - Exam GENERAL EXAM: Frail, weak. Alert, fairly comfortable in no apparent distress. HEAD: Normocephalic. EYES: Normal reaction of pupils, equal size. NOSE: Clear with pink turbinates. THROAT: No erythema or exudates. NECK: No masses, no JVD. CHEST: No chest wall deformity. LUNGS: Diminished in the bilateral posterior bases more so on the left. CVS: S1 and S2 normal with no audible murmur, regular rhythm. ABDOMEN: No hepatosplenomegaly, normal bowel sounds, no guarding or rigidity. SPINE: No scoliosis or deformity SKIN: No rashes CENTRAL NERVOUS SYSTEM: No focal deficits, tone is normal in all 4 extremities. EXTREMITIES: There is no peripheral edema. No clubbing, no cyanosis. Peripheral pulses are intact.m - Labs CBC & Chem 7: 08/18/17 06:20 08/18/17 06:20 Labs: Abnormal Lab Results - Last 24 Hours (Table) 08/18/17 08/18/17 Range/Units 06:20 06:20 WBC 13.3 H (3.8-10.6) k/uL RBC 3.44 L (3.80-5.40) m/uL Hgb 9.7 L (11.4-16.0) gm/dL Hct 32.6 L (34.0-46.0) % MCHC 29.7 L (31.0-37.0) g/dL Plt Count 451 H (150-450) k/uL Neutrophils # 8.5 H (1.3-7.7) k/uL Eosinophils # 1.4 H (0-0.7) k/uL Carbon Dioxide 32 H (22-30) mmol/L BUN 20 H (7-17) mg/dL Creatinine 1.62 H (0.52-1.04) mg/dL Calcium 7.9 L (8.4-10.2) mg/dL Microbiology - Last 24 Hours (Table) 08/13/17 10:30 Blood Culture - Preliminary Blood No Growth after 120 hours 08/13/17 10:30 Blood Culture - Preliminary Blood No Growth after 120 hours 08/12/17 09:06 Blood Culture - Final Blood No Growth after 144 hours 08/14/17 13:45 Gram Stain - Final Pleural Fluid Body Fluid Culture - Final Assessment and Plan Assessment: Impression: 1 atypical chest pain 2 acute hypoxic respiratory failure secondary to bilateral pleural effusions left greater than right. Status post left-sided thoracentesis with 900 and mls of yellow fluid removed. Negative for malignancy. 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 4 history of chronic kidney injury stage V, on hemodialysis. 5 history of multiple comorbidities including depression, chronic anemia, of chronic disease, Crohn's disease, history of shock liver, and history of hypoxic respiratory failure requiring intubation and mechanical ventilation, resolved. Recommendation: The patient was seen and evaluated by Dr. Carranza. Patient is improved today as compared to yesterday. We'll continue with her current medications. We will increase her activity as tolerated. We will continue to follow and make further recommendations based on her clinical status. I, the cosigning physician, performed a history & physical examination of the patient. Lungs sounds are in addition the bilateral posterior bases,. Maintaining good O2 saturations in the 90s on 3 liters high flow nasal cannula. I discussed the assessment and plan of care with my nurse practitioner, Kasie Roy. I attest to the above note as dictated by her.
--- NOTE | 2017-08-18 14:14 | P.PN ---
Subjective 71-year-old admitted for respiratory failure secondary to pulmonary edema and patient was initially on hemodialysis on this auscultation patient blood pressures O patient was started on midodrine by nephrology. Patient is still on for and half liters will try to wean it off possibility of discharge tomorrow patient is still on IV Lasix as per nephrology. 08/18/2017 Patient still has hypotension significantly becomes hypotensive whenever she sat stands, Midodrin dose is being increased. Constitutional: Denied any fatigue denied any fever. Cardio vascular: denied any chest pain, palpitations Gastrointestinal denied any nausea vomiting Pulmonary: Denied any shortness of breath cough Neurologic denied any new focal deficits Objective - Vital Signs Vital signs: Vital Signs Temp 98 F 08/18/17 04:00 Pulse 100 08/18/17 11:50 Resp 20 08/18/17 11:43 BP 92/45 08/18/17 11:43 Pulse Ox 92 L 08/18/17 11:43 Intake & Output 08/17/17 08/18/17 08/18/17 18:59 06:59 18:59 Intake Total 360 20 240 Output Total 1450 700 200 Balance -1090 -680 40 Weight 40.8 kg 40.8 kg Intake: IV 20 0.9 20 Oral 360 240 Output: Urine 1450 700 200 Other: Voiding Method Bedside Commode Bedside Commode Bedside Commode Bedpan Bedpan Bedpan # Voids 1 0 # Bowel Movements 1 - Exam PHYSICAL EXAMINATION: GENERAL: The patient is alert and oriented x3, not in any acute distress. Well developed, well nourished. Thin built on oxygen HEENT: Pupils are round and equally reacting to light. EOMI. No scleral icterus. No conjunctival pallor. Normocephalic, atraumatic. No pharyngeal erythema. No thyromegaly. CARDIOVASCULAR: S1 and S2 present. No murmurs, rubs, or gallops. PULMONARY: Patient does have bibasilar crackles without any wheezing ABDOMEN: Soft, nontender, nondistended, normoactive bowel sounds. No palpable organomegaly. MUSCULOSKELETAL: No joint swelling or deformity. EXTREMITIES: No cyanosis, clubbing, or pedal edema. NEUROLOGICAL: Gross neurological examination did not reveal any focal deficits. SKIN: No rashes. - Labs CBC & Chem 7: 08/18/17 06:20 08/18/17 06:20 Labs: Abnormal Lab Results - Last 24 Hours (Table) 08/18/17 08/18/17 Range/Units 06:20 06:20 WBC 13.3 H (3.8-10.6) k/uL RBC 3.44 L (3.80-5.40) m/uL Hgb 9.7 L (11.4-16.0) gm/dL Hct 32.6 L (34.0-46.0) % MCHC 29.7 L (31.0-37.0) g/dL Plt Count 451 H (150-450) k/uL Neutrophils # 8.5 H (1.3-7.7) k/uL Eosinophils # 1.4 H (0-0.7) k/uL Carbon Dioxide 32 H (22-30) mmol/L BUN 20 H (7-17) mg/dL Creatinine 1.62 H (0.52-1.04) mg/dL Calcium 7.9 L (8.4-10.2) mg/dL Microbiology - Last 24 Hours (Table) 08/13/17 10:30 Blood Culture - Preliminary Blood No Growth after 120 hours 08/13/17 10:30 Blood Culture - Preliminary Blood No Growth after 120 hours 08/12/17 09:06 Blood Culture - Final Blood No Growth after 144 hours 08/14/17 13:45 Gram Stain - Final Pleural Fluid Body Fluid Culture - Final Assessment and Plan Plan: -Acute hypoxic respiratory failure: Secondary to pulmonary edema from possible congestive heart failure along with end-stage renal disease patient may have chronic diastolic dysfunction with acute exacerbation patient is status post radical symphysis with them removal of 900 mL of fluid -History of left upper lobectomy which is contributing to her respiratory issues as well -End-stage renal disease on hemodialysis - Anemia of chronic disease -Depression -Crohn's disease - COPD without any acute exacerbation
[2017-08-18] MEDS: POTASSIUM CHLORIDE ER 20 MEQ TAB.ER PO SCH (17:18)
--- NOTE | 2017-08-18 20:31 | PN ---
PROGRESS NOTE The patient is seen for followup for acute kidney injury. She had been on hemodialysis, however, dialysis has been on hold for almost a week now. Serum creatinine is actually lower today as compared to yesterday. She is down to 1.6 from 1.8. The patient had been on Motrin, which is now discontinued. Her blood pressure remains low and she was started on midodrine yesterday. The patient feels well. She is not acutely short of breath. She has had good urine output about 2.1 L. EXAMINATION: Blood pressure is 109/72 this afternoon, earlier this morning it was 107/64, heart rate of 104 per minute. She is afebrile. Examination of the heart: S1, S2. Examination lungs: Bilateral breath sounds are heard. Abdomen is soft, nontender. Examination lower extremities shows no significant edema. TRAVEL NURSE exam is grossly intact. Patient moving all 4 extremities. LABS: Sodium 141, potassium 4.5, BUN 20, serum creatinine 1.6, calcium 7.9, hemoglobin 9.7 g/dL. ASSESSMENT: 1. Acute kidney injury, acute tubular necrosis. The patient was hemodialysis dependent. Her renal function is now improving. She has had good urine output. Hemodialysis remains on hold. We will continue to avoid nephrotoxic medications. Repeat labs in a.m. and continue current dose of Lasix. I have added the midodrine. I will increase the dose of midodrine to 10 mg b.i.d. 2. Anemia, slowly improving. The patient is maintained on Aranesp. 3. Hypokalemia, status post replacement, maintained on supplementation. PLAN: Continue current dose of Lasix. Continue vitamin D supplementation and we will continue to hold off on dialysis. Patient can likely be discharged tomorrow with close followup as outpatient. MMODL / IJN: [id number] /
[2017-08-18] MEDS: AMITRIPTYLINE HCL 25 MG TAB PO SCH (20:54)
[2017-08-18] MEDS: cefTRIAXone IN SWFI 1,000 MG/10 ML SYRINGE IVP SCH (22:08)
[2017-08-19] MEDS: NYSTATIN 100,000 UNIT/ML SUSP 500,000 UNIT/5 ML CUP PO SCH ×3 (06:22→16:54)
[2017-08-19] MEDS: GABAPENTIN 300 MG CAP PO SCH ×3 (06:22→20:13)
[2017-08-19] MEDS: MIDODRINE 5 MG TAB PO SCH ×2 (08:05→16:53)
[2017-08-19] MEDS: guaiFENesin 600 MG TABLET.ER PO SCH ×2 (08:06→20:13)
[2017-08-19] MEDS: PANTOPRAZOLE 40 MG TABLET PO SCH ×2 (08:06→16:54)
[2017-08-19] MEDS: FUROSEMIDE 10 MG/ML 4 ML VIAL IV SCH (08:06)
[2017-08-19] MEDS: METOPROLOL TARTRATE 12.5 MG TAB PO SCH ×2 (08:07→20:13)
[2017-08-19] MEDS: ASPIRIN 81 MG PO SCH (08:07)
[2017-08-19] MEDS: TRIAMCINOLONE 0.1% CREAM 80 GM TUBE TOPICAL SCH ×3 (08:08→22:32)
[2017-08-19] MEDS: traMADol 50 MG TAB PO SCH ×2 (08:19→20:14)
[2017-08-19] MEDS: ALPRAZolam 0.25 MG TAB PO PRN (08:19)
[2017-08-19] MEDS: IPRATROPIUM-ALBUTEROL 3 ML NEB INHALATION SCH ×4 (08:45→20:22)
[2017-08-19] MEDS: guaiFENesin-DM 100-10MG/5ML 10 ML CUP PO PRN ×2 (09:14→17:28)
[2017-08-19] MEDS ORDERED: MENTHOL-ZINC OXIDE OINT 113 GM TUBE TOPICAL PRN (09:37)
[2017-08-19 10:43] LABS: Calcium 8.1 mg/dL (8.4-10.2); Potassium 4.4 mmol/L (3.5-5.1)
[2017-08-19] MEDS: ONDANSETRON 4 MG TAB PO PRN ×2 (11:32→19:51)
--- NOTE | 2017-08-19 14:26 | XR ---
EXAMINATION TYPE: XR chest 1V portable DATE OF EXAM: 08/14/2017 COMPARISON: Prior chest x-ray 08/12/2017 HISTORY: Congestive heart failure and pleural effusion TECHNIQUE: Single frontal view of the chest is obtained. FINDINGS: Exam submitted for interpretation 08/19/2017. There is no significant interval change. IMPRESSION: Left pleural effusion and associated atelectasis, correlate to exclude pneumonia. Stable central venous dialysis catheter placement.
--- NOTE | 2017-08-19 14:32 | P.PN ---
Subjective Progress Note Date: 08/19/17 Principal diagnosis: Bilateral pleural effusion secondary to renal failure and fluid overload This is a 71-year-old white female familiar to my service, patient was recently inpatient, and she underwent left upper lobectomy for what seems to be a necrotizing mass, however pathology ruled out malignancy, and it showed basically possible old granulomatous infection, cultures were pending. [place] that the patient may have had atypical mycobacterial infection involving the left upper lobe. Patient was eventually discharged to [facility], and she has been receiving dialysis for acute on chronic renal failure. Patient presented to the ER this morning complaining of sudden onset of shortness of breath, along with severe chest pain and she was noted to be hypotensive. Upon arrival to the ER, patient had an EKG showing normal sinus rhythm with nonspecific ST and T-wave changes in the inferior and anterior leads. Chest x-ray showed small to moderate left-sided pleural effusion ultrasound showed a 5.5 cm pocket in the left pleural space, and it also showed a right sided pleural effusion. Patient was admitted, and this consult was initiated. Patient has been compliant with her dialysis, and she did receive her dialysis yesterday. D-dimer was 1.89, and troponin was 0.032. Hemoglobin was 7.1. Patient was admitted, placed on heparin, seen by cardiology, and this consult was initiated. The patient herself is a poor historian, has underlying dementia, but most of the history was obtained from her . Patient denies any fever no chills no hemoptysis, presently no chest pain, and no shortness of breath at present during my evaluation. It was felt that the patient had atypical chest pain, and after reviewing her ultrasound of the chest , I recommended repeat chest x-ray after hemodialysis, and if the fluid remains unchanged in the left pleural space, may consider thoracentesis. Which will be diagnostic and therapeutic at the same time. Presently the patient is in no form of respiratory distress during my evaluation. The patient is seen again today 08/13/2017 in follow-up on the selective care unit. She is currently awake and alert. She is still somewhat dyspneic on exertion. She is requiring 6 L high flow nasal cannula to maintain O2 saturations in the 90s. Temperature 99.6. She is receiving hemodialysis. The plan was for 2.5 L to be removed however her blood pressure is not allowing that M probably 1 L all be removed. We'll plan for chest x-ray today shortly after dialysis to evaluate the pleural effusion. Blood cultures revealing no growth. Hemoglobin 7.8. White count 5.4. White count 1.81. BNP 16,300. The patient is seen again today 08/14/2017 in follow-up on the selective care unit. She continues with a moderate left-sided pleural effusion. The plan is for thoracentesis today. The heparin is currently on hold. She denies any worsening shortness of breath, cough or congestion. She is still requiring 5 L/ m per nasal cannula to maintain O2 saturations in the 90s. She was intolerant of much dialysis yesterday due to hypotension. Less than a liter was removed. Blood cultures reveal no growth. White count 5.9. Hemoglobin 7.8. Creatinine 1.10. The patient is seen again today 08/15/2017 in follow-up on the selective care unit. She is awake and alert in no acute distress. She is breathing easier today as compared to yesterday. She is now status post thoracentesis of the left chest. 900 mls of slightly yellow otherwise clear fluid was removed. Fluid analysis is pending. The chest x-ray revealed nearly complete resolution. She is maintaining good O2 saturations in the upper 90s on 4 L/m per nasal cannula. She's been afebrile. Reevaluated today on 08/16/2017, patient is doing relatively well, less shortness of breath, hardly any wheezing, no fever, no chills, no hemoptysis. Pleural effusion results are still pending, no chest x-ray was done on the last 2 days, I plan to repeat the chest x-ray in a.m. for follow-up on her bilateral pleural effusions and status post thoracentesis on the left side. CBC is relatively normal potassium is 4.0 today. On 08/17/2017 she seen in follow-up. She is sitting up in the chair, denies any acute distress, denies any worsening dyspnea. Currently on 49 have liters per nasal cannula, with O2 sat 98%. Slightly hypotensive, with systolic blood pressure in the 80s to 90s millimeters of mercury, and diastolic blood pressure in the 50s millimeters of mercury, however she remains asymptomatic, she is awake alert, denies any chest pain or dyspnea. Slightly tachycardic with heart rate up to 101 BPM. Afebrile. Lung sounds diminished over right lower lobe, with a a few scattered rhonchi. Chest x-ray shows small right pleural effusion. Patient underwent left thoracentesis by Dr. Gandara for 2017 with removal of 900 mL of pleural fluid. Pleural fluid cytology is still pending, pleural fluid analysis showed low total protein of 2.8, and fluid LDH of 83, consistent with transudative pleural fluid. Pleural fluid cultures are pending. Patient continues on empiric antibiotic coverage in the form of Rocephin, she is receiving IV diuretics of Lasix 40 mg every 12 hours, nebulized treatments. She is maintaining negative fluid balance, she is in - 1720 ML fluid balance over the last 24 hours. No swelling in bilateral lower extremities noted. The patient is seen today 08/18/2017 in follow-up on the selective care unit. She is currently awake and alert in no acute distress. She is breathing easier today as compared to yesterday. Chest x-ray reveals stable small left pleural effusion with adjacent atelectasis. She is maintaining good O2 saturations in the 90s on 3 L/m per nasal cannula. Current blood pressure 92/45 with a mean of 60. White count 13.3. Hemoglobin 9.7. Creatinine 1.62. On 08/19/2017 patient seen in follow-up on medical surgical floor. She is sitting up in the chair, denies any acute distress, slightly dyspneic with conversation, and appears to be fatigued. Today's labs reveal sodium of 139, potassium is 4.4, chloride is 95, B1 is 26, creatinine is 1.51, slightly improved from yesterday's renal profile. She remains in negative balance, - 1779 last 24 hours. Lung sounds are clear to auscultation, no wheezes no rales or rhonchi noted. No peripheral edema noted. Patient has a effective productive cough with production of white sputum. Chest x-ray from 08/18/2017 was reviewed, is showed stable small left pleural effusion with adjacent left basilar retrocardiac atelectasis and/or consolidation. She remains on 3 L per nasal cannula with O2 sat at 100%. Afebrile, hemodynamically stable. Appetite remains poor, patient is receiving supplemental and sure drinks with every meal , which she is making an effort to finish. Overall making slow improvement. Denies any fever or chills, denies any worsening dyspnea, denies any chest pain. Objective - Vital Signs Vital signs: Vital Signs Temp 97.7 F 08/19/17 07:00 Pulse 96 08/19/17 12:11 Resp 16 08/19/17 07:00 BP 101/62 08/19/17 07:00 Pulse Ox 100 08/19/17 11:57 Intake & Output 08/18/17 08/19/17 08/19/17 18:59 06:59 18:59 Intake Total 600 Output Total 400 575 600 Balance 200 -575 -600 Weight 40.8 kg 40.8 kg Intake: Oral 600 Output: Urine 400 575 500 Stool 100 Other: Voiding Method Bedside Commode Bedside Commode Bedside Commode Bedpan Bedpan Bedpan # Voids 0 1 1 # Bowel Movements 0 1 - Exam GENERAL EXAM: Frail, weak. Alert, fairly comfortable in no apparent distress. Sitting up in the chair, on 4 l per nasal cannula, denies any dyspnea HEAD: Normocephalic. EYES: Normal reaction of pupils, equal size. NOSE: Clear with pink turbinates. THROAT: No erythema or exudates. NECK: No masses, no JVD. CHEST: No chest wall deformity. LUNGS: Diminished in the bilateral posterior bases more so on the left. CVS: S1 and S2 normal with no audible murmur, regular rhythm. ABDOMEN: No hepatosplenomegaly, normal bowel sounds, no guarding or rigidity. SPINE: No scoliosis or deformity SKIN: No rashes CENTRAL NERVOUS SYSTEM: No focal deficits, tone is normal in all 4 extremities. EXTREMITIES: There is no peripheral edema. No clubbing, no cyanosis. Peripheral pulses are intact.m - Labs CBC & Chem 7: 08/18/17 06:20 08/19/17 10:02 Labs: Abnormal Lab Results - Last 24 Hours (Table) 08/19/17 Range/Units 10:02 Chloride 95 L (98-107) mmol/L BUN 26 H (7-17) mg/dL Creatinine 1.51 H (0.52-1.04) mg/dL Glucose 105 H (74-99) mg/dL Calcium 8.1 L (8.4-10.2) mg/dL Microbiology - Last 24 Hours (Table) 04/05/18 10:30 Blood Culture - Final Blood No Growth after 144 hours 08/13/17 10:30 Blood Culture - Final Blood No Growth after 144 hours 08/12/17 09:06 Blood Culture - Final Blood No Growth after 144 hours 08/14/17 13:45 Gram Stain - Final Pleural Fluid Body Fluid Culture - Final Assessment and Plan Plan: Assessment: 1 atypical chest pain, resolved 2 acute hypoxic respiratory failure secondary to bilateral pleural effusions left greater than right. Status post left-sided thoracentesis with 900 mls of yellow fluid removed. Fluid analysis shows pleural fluid which is transudative in nature consistent with congestive heart failure and fluid overload, pleural fluid cytology did not reveal any cytologically malignant cells. 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 4 history of chronic kidney injury stage V, on hemodialysis. 5 history of multiple comorbidities including depression, chronic anemia, of chronic disease, Crohn's disease, history of shock liver, and history of hypoxic respiratory failure requiring intubation and mechanical ventilation, resolved. Plan: Continue current medical treatment, continue antibiotic coverage per ID service recommendation, patient is afebrile, vital signs are stable. Making slow improvement. Pleural fluid cytology results were reviewed, did not show any cytologically malignant cells. She is maintaining stable oxygenation on 3 L per nasal cannula. Continue diuresis per nephrology recommendation. Patient is maintaining negative fluid balance I performed a history & physical examination of the patient and discussed their management with my nurse practitioner, Angela Garibay. I reviewed the nurse practitioner's note and agree with the documented findings and plan of care. Lung sounds are positive for diminishedt lung sounds over right lower lobe. The findings and the impression was discussed with the patient. I attest to the documentation by the nurse practitioner. Time with Patient: Less than 30
[2017-08-19] MEDS: MENTHOL-ZINC OXIDE OINT 113 GM TUBE TOPICAL SCH ×2 (16:52→22:31)
[2017-08-19] MEDS: FUROSEMIDE 20 MG TAB PO SCH (16:52)
[2017-08-19] MEDS: POTASSIUM CHLORIDE ER 20 MEQ TAB.ER PO SCH (16:53)
[2017-08-19] MEDS: AMITRIPTYLINE HCL 25 MG TAB PO SCH (20:14)
[2017-08-19] MEDS: cefTRIAXone IN SWFI 1,000 MG/10 ML SYRINGE IVP SCH (22:30)
[2017-08-20] MEDS: NYSTATIN 100,000 UNIT/ML SUSP 500,000 UNIT/5 ML CUP PO SCH ×3 (00:19→11:08)
--- NOTE | 2017-08-20 05:23 | PN ---
PROGRESS NOTE Patient is seen for followup for acute kidney injury, which patient had been dialysis dependent. Her renal function has been improving. She has not had dialysis for more than a week now. PHYSICAL EXAMINATION: On examination today, patient's blood pressure was 107/64 this morning. Heart rate about 98 per minute. She was afebrile. EXAMINATION OF THE HEART: S1 and S2. EXAMINATION OF THE LUNGS: Bilateral breath sounds are heard. Decreased breath sounds at the bases. Abdomen is soft, nontender. Examination of the lower extremities shows no significant edema. LABS: Labs show sodium 139, potassium 4.4, BUN 26, serum creatinine 1.51. Hemoglobin was 9.7 g/dL. ASSESSMENT: 1. Acute kidney injury. The patient was hemodialysis dependent, currently improved. Patient has been off of dialysis for about a week now. Her creatinine continues to improve. She is maintained on IV Lasix which can be switched over to p.o. and will continue to hold off on the dialysis for now. 2. Anemia of chronic disease, maintained on Aranesp. Hemoglobin has been increasing. We will likely discontinue the Aranesp as outpatient. 3. Hypotension with no evidence of adrenal insufficiency. Maintained on midodrine, which was increased yesterday. 4. Hypokalemia. Maintained on supplementation. 5. Status post left upper lobectomy for lung mass about a month ago. PLAN: Can switch to oral Lasix. We will continue to hold off on dialysis. The patient can be discharged. She will need followup as outpatient in about 1 week's time. MMODL / IJN: [id number] /
[2017-08-20] MEDS: GABAPENTIN 300 MG CAP PO SCH ×2 (06:40→14:20)
[2017-08-20 07:26] VITALS: RESP 18
[2017-08-20] MEDS: IPRATROPIUM-ALBUTEROL 3 ML NEB INHALATION SCH ×3 (07:55→15:48)
[2017-08-20] MEDS: traMADol 50 MG TAB PO SCH (08:33)
[2017-08-20] MEDS: guaiFENesin-DM 100-10MG/5ML 10 ML CUP PO PRN (08:35)
[2017-08-20] MEDS: PANTOPRAZOLE 40 MG TABLET PO SCH ×2 (08:35→15:36)
[2017-08-20] MEDS: MIDODRINE 5 MG TAB PO SCH ×2 (08:35→15:35)
[2017-08-20] MEDS: guaiFENesin 600 MG TABLET.ER PO SCH (08:36)
[2017-08-20] MEDS: FUROSEMIDE 20 MG TAB PO SCH ×2 (08:36→15:35)
[2017-08-20] MEDS: METOPROLOL TARTRATE 12.5 MG TAB PO SCH (08:36)
[2017-08-20] MEDS: ASPIRIN 81 MG PO SCH (08:36)
[2017-08-20] MEDS: TRIAMCINOLONE 0.1% CREAM 80 GM TUBE TOPICAL SCH ×2 (08:37→15:36)
[2017-08-20] MEDS: MENTHOL-ZINC OXIDE OINT 113 GM TUBE TOPICAL SCH ×2 (08:37→15:36)
--- NOTE | 2017-08-20 09:09 | P.PN ---
Subjective Progress Note Date: 08/19/17 Progress note being dictated for Dr. Sparks Interval history:71-year-old admitted for respiratory failure secondary to pulmonary edema and patient was initially on hemodialysis on this auscultation patient blood pressures O patient was started on midodrine by nephrology. Patient is still on for and half liters will try to wean it off possibility of discharge tomorrow patient is still on IV Lasix as per nephrology. 08/18/2017 Patient still has hypotension significantly becomes hypotensive whenever she sat stands, Midodrin dose is being increased. Constitutional: Denied any fatigue denied any fever. Cardio vascular: denied any chest pain, palpitations Gastrointestinal denied any nausea vomiting Pulmonary: Denied any shortness of breath cough Neurologic denied any new focal deficits 08/19/2017 maintained on IV antibiotics as per infectious disease. Diuresing well on Lasix IV push with 24-hour I&O reflecting a negative fluid balance. Has not required dialysis for more than one week with renal function continuing to improve. Hypotensive yesterday with Midodrin increased, blood pressures improved with systolic blood pressures currently in [id number]. Congested loose productive cough with white sputum. Significantly fatigued with slow improvement. Denies chest pain, palpitations or increased shortness of breath. Afebrile. Objective - Vital Signs Vital signs: Vital Signs Temp 98.7 F 08/19/17 14:38 Pulse 110 H 08/19/17 16:00 Resp 18 08/19/17 16:00 BP 88/60 08/19/17 14:38 Pulse Ox 96 08/19/17 14:38 Intake & Output 08/19/17 08/19/17 08/20/17 06:59 18:59 06:59 Output Total 575 1250 Balance -575 -1250 Weight 40.8 kg Output: Urine 575 950 Stool 300 Other: Voiding Method Bedside Commode Bedside Commode Bedpan Bedpan # Voids 1 1 # Bowel Movements 0 1 - Exam GENERAL: The patient is sitting up in chair, fatigued ,alert and oriented x3, not in any acute distress. Oxygen dependent. HEENT: Pupils are round and equally reacting to light. EOMI. No scleral icterus. No conjunctival pallor. Normocephalic, atraumatic. CARDIOVASCULAR: S1 and S2 present. No murmurs, rubs, or gallops. PULMONARY: Bilateral bases diminished, more so on the left ,bibasilar crackles without any wheezing ABDOMEN: Soft, nontender, nondistended, normoactive bowel sounds. No palpable organomegaly. MUSCULOSKELETAL: No joint swelling or deformity. EXTREMITIES: No cyanosis, clubbing, or pedal edema. NEUROLOGICAL: Gross neurological examination did not reveal any focal deficits. SKIN: No rashes. Microbiology 08/13/17 10:30 Blood Blood Culture - Final No Growth after 144 hours 08/13/17 10:30 Blood Blood Culture - Final No Growth after 144 hours 08/12/17 09:06 Blood Blood Culture - Final No Growth after 144 hours 08/14/17 13:45 Pleural Fluid Gram Stain - Final 08/14/17 13:45 Pleural Fluid Body Fluid Culture - Final 08/14/17 13:45 Pleural Fluid Fungal Culture - Preliminary 08/14/17 13:45 Pleural Fluid Acid Fast Bacilli Smear - Final 08/14/17 13:45 Pleural Fluid Acid Fast Bacilli Culture - Preliminary - Labs CBC & Chem 7: 08/18/17 06:20 08/19/17 10:02 Labs: Abnormal Lab Results - Last 24 Hours (Table) 08/19/17 Range/Units 10:02 Chloride 95 L (98-107) mmol/L BUN 26 H (7-17) mg/dL Creatinine 1.51 H (0.52-1.04) mg/dL Glucose 105 H (74-99) mg/dL Calcium 8.1 L (8.4-10.2) mg/dL Microbiology - Last 24 Hours (Table) 08/13/17 10:30 Blood Culture - Final Blood No Growth after 144 hours 08/13/17 10:30 Blood Culture - Final Blood No Growth after 144 hours Assessment and Plan Assessment: -Acute hypoxic respiratory failure: Secondary to bilateral pleural effusions, status post left-sided thoracentesis -pleural fluid transudative with no malignant cells reported per cytology,pulmonary edema from possible congestive heart failure along with chronic renal failure, stage V patient may have chronic diastolic dysfunction with acute exacerbation patient is status post radical symphysis with them removal of 900 mL of fluid -History of recent left upper lobectomy, chronic mass-reported as nonmalignant, which is contributing to her respiratory issues as well -End-stage renal disease on hemodialysis - Anemia of chronic disease -Depression -Crohn's disease - COPD without any acute exacerbation -Atypical chest pain, resolved Plan: Continue on current medication regime , Midodrin,monitoring and symptomatic treatment. Maintained on Lasix IV push with possible conversion to oral tomorrow as per nephrology. Continue on nebulized bronchodilators. Was monitoring of renal function and electro lites with repeat labs ordered for a.m. Discharge planning in progress tentatively for tomorrow pending clearance from nephrology and pulmonary. The impression and plan of care has been dictated as directed. : I performed a history and examination of this patient, discussed the same with the dictator. I agree with the dictator's note ,documented as a scribe. Any additional findings or plans will be noted.
[2017-08-20 09:44] LABS: Basophils # (A) 0.2 k/uL (0-0.2); Basophils % (A) 1 %; Eosinophils # (A) 0.8 k/uL (0-0.7); Eosinophils % (A) 5 %; HCT 33.3 % (34.0-46.0); HGB 10.2 gm/dL (11.4-16.0); Hypochromasia Moderate; Lymphocytes # (A) 1.8 k/uL (1.0-4.8); Lymphocytes % (A) 11 %; MCH 28.5 pg (25.0-35.0); MCHC 30.7 g/dL (31.0-37.0); MCV 92.9 fL (80.0-100.0); Monocytes # (A) 0.5 k/uL (0-1.0); Monocytes % (A) 3 %; Neutrophils # (A) 12.2 k/uL (1.3-7.7); Neutrophils % (A) 77 %; Platelet Count 687 k/uL (150-450); RBC 3.59 m/uL (3.80-5.40); RDW 14.8 % (11.5-15.5); WBC 15.8 k/uL (3.8-10.6)
[2017-08-20 10:09] LABS: Albumin 3.5 g/dL (3.5-5.0); Calcium 8.3 mg/dL (8.4-10.2); Potassium 4.5 mmol/L (3.5-5.1); Total Bilirubin 0.3 mg/dL (0.2-1.3); Total Protein 7.1 g/dL (6.3-8.2)
[2017-08-20] MEDS: ALPRAZolam 0.25 MG TAB PO PRN (10:59)
[2017-08-20] MEDS: ONDANSETRON 4 MG TAB PO PRN (10:59)
--- NOTE | 2017-08-20 11:30 | PN ---
PROGRESS NOTE The patient is seen for followup for acute kidney injury. Currently, patient has been off of dialysis. Renal function has been improving. Serum creatinine has now been staying at about 1.5 mg/dL. Patient has had good urine output. She could be discharged today. EXAMINATION: Blood pressure is 117/69, heart rate 100 per minute. She is afebrile. Examination of the heart S1, S2. Examination lungs decreased breath sounds at bases. No crackles or wheezing is heard. Abdomen is soft, nontender. Exam of lower extremities shows no evidence of edema. AVIONICS ELECTRICAL ENGINEER exam is grossly intact. Patient moving all 4 extremities. LAB: Show sodium 139, potassium 4.5, BUN 27, serum creatinine 1.57. ASSESSMENT: 1. Acute kidney injury, acute tubular necrosis initially, hemodialysis dependent, currently off hemodialysis. Renal function stable with creatinine staying at about 1.5 mg/dL. 2. Volume overload, now improved. Maintained on Lasix which we will continue at 60 mg b.i.d. 3. Anemia of chronic disease. Hemoglobin is up to 10.2 g/dL. We do not need to continue with the Aranesp as outpatient. 4. Status post left upper lobectomy for a lung mass, which did not automatic glove turner and former to be malignant. 5. Generalized debility. 6. Hypotension currently maintained on midodrine, cortisol was not low. 7. History of atrial fibrillation, currently on a small dose of Lopressor which we will continue. PLAN: Continue with oral Lasix. Check postvoid residual and patient will need follow up as outpatient in about 1 week's time. MMODL / IJN: [id number] /
--- NOTE | 2017-08-20 13:48 | P.PN ---
Subjective Progress Note Date: 08/20/17 Principal diagnosis: Bilateral pleural effusion secondary to renal failure and fluid overload This is a 71-year-old white female familiar to my service, patient was recently inpatient, and she underwent left upper lobectomy for what seems to be a necrotizing mass, however pathology ruled out malignancy, and it showed basically possible old granulomatous infection, cultures were pending. [place] that the patient may have had atypical mycobacterial infection involving the left upper lobe. Patient was eventually discharged to [facility], and she has been receiving dialysis for acute on chronic renal failure. Patient presented to the ER this morning complaining of sudden onset of shortness of breath, along with severe chest pain and she was noted to be hypotensive. Upon arrival to the ER, patient had an EKG showing normal sinus rhythm with nonspecific ST and T-wave changes in the inferior and anterior leads. Chest x-ray showed small to moderate left-sided pleural effusion ultrasound showed a 5.5 cm pocket in the left pleural space, and it also showed a right sided pleural effusion. Patient was admitted, and this consult was initiated. Patient has been compliant with her dialysis, and she did receive her dialysis yesterday. D-dimer was 1.89, and troponin was 0.032. Hemoglobin was 7.1. Patient was admitted, placed on heparin, seen by cardiology, and this consult was initiated. The patient herself is a poor historian, has underlying dementia, but most of the history was obtained from her . Patient denies any fever no chills no hemoptysis, presently no chest pain, and no shortness of breath at present during my evaluation. It was felt that the patient had atypical chest pain, and after reviewing her ultrasound of the chest , I recommended repeat chest x-ray after hemodialysis, and if the fluid remains unchanged in the left pleural space, may consider thoracentesis. Which will be diagnostic and therapeutic at the same time. Presently the patient is in no form of respiratory distress during my evaluation. The patient is seen again today 08/13/2017 in follow-up on the selective care unit. She is currently awake and alert. She is still somewhat dyspneic on exertion. She is requiring 6 L high flow nasal cannula to maintain O2 saturations in the 90s. Temperature 99.6. She is receiving hemodialysis. The plan was for 2.5 L to be removed however her blood pressure is not allowing that M probably 1 L all be removed. We'll plan for chest x-ray today shortly after dialysis to evaluate the pleural effusion. Blood cultures revealing no growth. Hemoglobin 7.8. White count 5.4. White count 1.81. BNP 16,300. The patient is seen again today 08/14/2017 in follow-up on the selective care unit. She continues with a moderate left-sided pleural effusion. The plan is for thoracentesis today. The heparin is currently on hold. She denies any worsening shortness of breath, cough or congestion. She is still requiring 5 L/ m per nasal cannula to maintain O2 saturations in the 90s. She was intolerant of much dialysis yesterday due to hypotension. Less than a liter was removed. Blood cultures reveal no growth. White count 5.9. Hemoglobin 7.8. Creatinine 1.10. The patient is seen again today 08/15/2017 in follow-up on the selective care unit. She is awake and alert in no acute distress. She is breathing easier today as compared to yesterday. She is now status post thoracentesis of the left chest. 900 mls of slightly yellow otherwise clear fluid was removed. Fluid analysis is pending. The chest x-ray revealed nearly complete resolution. She is maintaining good O2 saturations in the upper 90s on 4 L/m per nasal cannula. She's been afebrile. Reevaluated today on 08/16/2017, patient is doing relatively well, less shortness of breath, hardly any wheezing, no fever, no chills, no hemoptysis. Pleural effusion results are still pending, no chest x-ray was done on the last 2 days, I plan to repeat the chest x-ray in a.m. for follow-up on her bilateral pleural effusions and status post thoracentesis on the left side. CBC is relatively normal potassium is 4.0 today. On 08/17/2017 she seen in follow-up. She is sitting up in the chair, denies any acute distress, denies any worsening dyspnea. Currently on 49 have liters per nasal cannula, with O2 sat 98%. Slightly hypotensive, with systolic blood pressure in the 80s to 90s millimeters of mercury, and diastolic blood pressure in the 50s millimeters of mercury, however she remains asymptomatic, she is awake alert, denies any chest pain or dyspnea. Slightly tachycardic with heart rate up to 101 BPM. Afebrile. Lung sounds diminished over right lower lobe, with a a few scattered rhonchi. Chest x-ray shows small right pleural effusion. Patient underwent left thoracentesis by Dr. Gandara for 2017 with removal of 900 mL of pleural fluid. Pleural fluid cytology is still pending, pleural fluid analysis showed low total protein of 2.8, and fluid LDH of 83, consistent with transudative pleural fluid. Pleural fluid cultures are pending. Patient continues on empiric antibiotic coverage in the form of Rocephin, she is receiving IV diuretics of Lasix 40 mg every 12 hours, nebulized treatments. She is maintaining negative fluid balance, she is in - 1720 ML fluid balance over the last 24 hours. No swelling in bilateral lower extremities noted. The patient is seen today 08/18/2017 in follow-up on the selective care unit. She is currently awake and alert in no acute distress. She is breathing easier today as compared to yesterday. Chest x-ray reveals stable small left pleural effusion with adjacent atelectasis. She is maintaining good O2 saturations in the 90s on 3 L/m per nasal cannula. Current blood pressure 92/45 with a mean of 60. White count 13.3. Hemoglobin 9.7. Creatinine 1.62. On 08/19/2017 patient seen in follow-up on medical surgical floor. She is sitting up in the chair, denies any acute distress, slightly dyspneic with conversation, and appears to be fatigued. Today's labs reveal sodium of 139, potassium is 4.4, chloride is 95, B1 is 26, creatinine is 1.51, slightly improved from yesterday's renal profile. She remains in negative balance, - 1779 last 24 hours. Lung sounds are clear to auscultation, no wheezes no rales or rhonchi noted. No peripheral edema noted. Patient has a effective productive cough with production of white sputum. Chest x-ray from 08/18/2017 was reviewed, is showed stable small left pleural effusion with adjacent left basilar retrocardiac atelectasis and/or consolidation. She remains on 3 L per nasal cannula with O2 sat at 100%. Afebrile, hemodynamically stable. Appetite remains poor, patient is receiving supplemental and sure drinks with every meal , which she is making an effort to finish. Overall making slow improvement. Denies any fever or chills, denies any worsening dyspnea, denies any chest pain. On 08/20/2017 patient seen in follow-up on medical surgical floor. Appears to be less dyspneic today, on 3 L per nasal cannula and her O2 sat is 95%. However home oxygen assessment test revealed room air O2 saturation of 82-85%. Patient will need home oxygen arranged. She remains afebrile, hemodynamically stable. Lung sounds are clear, patient does have a congested productive cough, a bit less congested than on yesterday's exam. She is bringing up small amount of white sputum. She is complaining of some nasal congestion and mild sinus headache. She is currently on empiric antibiotics in the form of Rocephin, she is on Mucinex, Robitussin cough syrup, nebulized treatments. Today's lab work was reviewed, WBC is 15.8, hemoglobin is 10.2, sodium is 139, potassium is 4.5, chloride is 94, BUN is 27, creatinine is 1.57, renal profile is stable. Patient has a right subclavian dialysis port, however has not required dialysis this admission. She is being diuresis per nephrology, currently on oral Lasix at 60 mg twice daily, she is in negative fluid balance. No new chest x-rays today. Discharge planning is in progress, for possible discharge to [facility] soon. Objective - Vital Signs Vital signs: Vital Signs Temp 97.1 F L 08/20/17 07:01 Pulse 94 08/20/17 11:48 Resp 18 08/20/17 07:01 BP 117/69 08/20/17 07:01 Pulse Ox 95 08/20/17 07:58 Intake & Output 08/19/17 08/20/17 08/20/17 18:59 06:59 18:59 Intake Total 500 Output Total 1250 401 Balance -1250 99 Weight 40.8 kg 40 kg Intake: Oral 500 Output: Urine 950 400 Stool 300 Urine/Stool Mix 1 Other: Voiding Method Bedside Commode Bedpan # Voids 1 2 # Bowel Movements 1 0 - Exam GENERAL EXAM: Frail, weak. Alert, fairly comfortable in no apparent distress. Sitting up in the chair, on 3 l per nasal cannula, denies any dyspnea HEAD: Normocephalic. EYES: Normal reaction of pupils, equal size. NOSE: Clear with pink turbinates. THROAT: No erythema or exudates. NECK: No masses, no JVD. CHEST: No chest wall deformity. LUNGS: Clear lung sounds bilaterally, diminished at the bases CVS: S1 and S2 normal with no audible murmur, regular rhythm. ABDOMEN: No hepatosplenomegaly, normal bowel sounds, no guarding or rigidity. SPINE: No scoliosis or deformity SKIN: No rashes CENTRAL NERVOUS SYSTEM: No focal deficits, tone is normal in all 4 extremities. EXTREMITIES: There is no peripheral edema. No clubbing, no cyanosis. Peripheral pulses are intact.m - Labs CBC & Chem 7: 08/20/17 09:06 08/20/17 09:16 Labs: Abnormal Lab Results - Last 24 Hours (Table) 08/20/17 08/20/17 Range/Units 09:06 09:16 WBC 15.8 H (3.8-10.6) k/uL RBC 3.59 L (3.80-5.40) m/uL Hgb 10.2 L (11.4-16.0) gm/dL Hct 33.3 L (34.0-46.0) % MCHC 30.7 L (31.0-37.0) g/dL Plt Count 687 H (150-450) k/uL Neutrophils # 12.2 H (1.3-7.7) k/uL Eosinophils # 0.8 H (0-0.7) k/uL Chloride 94 L (98-107) mmol/L BUN 27 H (7-17) mg/dL Creatinine 1.57 H (0.52-1.04) mg/dL Glucose 138 H (74-99) mg/dL Calcium 8.3 L (8.4-10.2) mg/dL AST 11 L (14-36) U/L Microbiology - Last 24 Hours (Table) 08/13/17 10:30 Blood Culture - Final Blood No Growth after 144 hours 08/13/17 10:30 Blood Culture - Final Blood No Growth after 144 hours Assessment and Plan Plan: Assessment: 1 atypical chest pain, resolved 2 acute hypoxic respiratory failure secondary to bilateral pleural effusions left greater than right. Status post left-sided thoracentesis with 900 mls of yellow fluid removed. Fluid analysis shows pleural fluid which is transudative in nature consistent with congestive heart failure and fluid overload, pleural fluid cytology did not reveal any cytologically malignant cells. 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 4 history of chronic kidney injury stage V, on hemodialysis. 5 history of multiple comorbidities including depression, chronic anemia, of chronic disease, Crohn's disease, history of shock liver, and history of hypoxic respiratory failure requiring intubation and mechanical ventilation, resolved. Plan: Patient is maintaining negative fluid balance, her IV diuretics were converted to oral Lasix per nephrology service. Less dyspneic on today's exam, lung sounds are clear. Vital signs are stable, microbiology results remain negative to date. Patient continues on empiric Rocephin, will check with ID service the length of recommended treatment. Patient has been afebrile. From pulmonary standpoint patient is stable for discharge to the subacute rehab facility today. We'll need follow-up with Dr. Bush in the office within 7-10 days post discharge. I performed a history & physical examination of the patient and discussed their management with my nurse practitioner, Angela Garibay. I reviewed the nurse practitioner's note and agree with the documented findings and plan of care. Lung sounds are clear. The findings and the impression was discussed with the patient. I attest to the documentation by the nurse practitioner. Time with Patient: Less than 30
[2017-08-20 15:13] VITALS: BP 88/59; TEMP 98.7
--- NOTE | 2017-08-20 15:22 | P.DS ---
Providers Date of admission: 08/12/17 10:31 Attending physician: Husam Tafoya Consults: 08/12/17 10:31 Consult Physician Stat Consulting Provider: Leon Bush Consult Reason/Comments: COPD acute exacerbation Do you want consulting provider notified?: Yes Consult Physician Urgent Consulting Provider: Venu Sena Consult Reason/Comments: Chest pain with the new EKG changes and multiple risk factors Do you want consulting provider notified?: Yes 08/12/17 15:11 Consult Physician Routine Consulting Provider: Yuliana Castillo Consult Reason/Comments: crf/dialysis Do you want consulting provider notified?: Yes 08/13/17 11:27 Consult Physician Stat Consulting Provider: Miguel Barakat Consult Reason/Comments: fever/infection Do you want consulting provider notified?: Yes Primary care physician: [facility] Course: Final DIagnoses: -Acute hypoxic respiratory failure: Secondary to bilateral pleural effusions, status post left-sided thoracentesis -pleural fluid transudative with no malignant cells reported per cytology,pulmonary edema from possible congestive heart failure along with chronic renal failure, stage V patient may have chronic diastolic dysfunction with acute exacerbation patient is status post radical symphysis with them removal of 900 mL of fluid -History of recent left upper lobectomy, chronic mass-reported as nonmalignant, which is contributing to her respiratory issues as well -End-stage renal disease on hemodialysis - Anemia of chronic disease -Depression -Crohn's disease - COPD without any acute exacerbation -Atypical chest pain, resolved Hospital course: This 71-year-old admitted for respiratory failure,hypotension , chest pain. EKG reported normal sinus rhythm with nonspecific ST and T-wave changes in the inferior and anterior leads. Chest x-ray showed small to moderate left-sided pleural effusion ultrasound showed a 5.5 cm pocket in the left pleural space, and right sided pleural effusion. Patient's last dialysis yesterday. D-dimer was 1.89, and troponin was 0.032. Hemoglobin was 7.1. Patient was admitted, placed on heparin and IV antibiotics. Evaluated by cardiology, Pulmonary, nephrology and ID.Atypical Chest pain as per cardiology.Received Hemodialysis. S/P left thorancentesis, transudative with no malignant cells reported per cytology. Diuresed on Lasix IVP.Urinary retention, post void residuals. Hypotensive, maintained on Midodrin. Hemoglobin up to 10.2. Currently off Of HD.SIgnificant clinical improvement.Patient has been cleared by all consults for discharge. Patient is being discharge to [facility] in a stable condition with a guarded prognosis. Microbiology 08/13/17 10:30 Blood Blood Culture - Final No Growth after 144 hours 08/13/17 10:30 Blood Blood Culture - Final No Growth after 144 hours 08/12/17 09:06 Blood Blood Culture - Final No Growth after 144 hours 08/14/17 13:45 Pleural Fluid Gram Stain - Final 08/14/17 13:45 Pleural Fluid Body Fluid Culture - Final 08/14/17 13:45 Pleural Fluid Fungal Culture - Preliminary 08/14/17 13:45 Pleural Fluid Acid Fast Bacilli Smear - Final 08/14/17 13:45 Pleural Fluid Acid Fast Bacilli Culture - Preliminary The impression and plan of care has been dictated as directed. : I performed a history and examination of this patient, discussed the same with the dictator. I agree with the dictator's note ,documented as a scribe. Any additional findings or plans will be noted. Time taken: 35 min Patient Condition at Discharge: Stable Plan - Discharge Summary Discharge Rx Participant: No New Discharge Prescriptions: New ALPRAZolam [Xanax] 0.25 mg PO BID PRN #6 tab PRN Reason: Anxiety Aspirin 81 mg PO DAILY chew Furosemide [Lasix] 60 mg PO BID@0900,1600 tab guaiFENesin [Mucinex] 1,200 mg PO Q12HR tablet.er Menthol-Zinc Oxide Oint [Risamine Oint] 1 applic TOPICAL TID applic Midodrine [ProAmatine] 10 mg PO AC-BID tab Triamcinolone 0.1% Cream [Kenalog] 1 applic TOPICAL TID applic Continue Bisacodyl [Dulcolax] 10 mg RECTAL DAILY PRN supp PRN Reason: Constipation Ergocalciferol [Vitamin D2 (DRISDOL)] 50,000 unit PO Q72H cap Ipratropium-Albuterol Nebulize [Duoneb 0.5 mg-3 mg/3 ml Soln] 3 ml INHALATION RT-QID ampul.neb Pantoprazole [Protonix] 40 mg PO AC-BID tablet. Ondansetron [Zofran] 4 mg PO Q8HR PRN PRN Reason: Nausea Potassium Chloride [Klor-Con 20] 40 meq PO DAILY@1700 Magnesium Hydroxide [Milk of Magnesia] 2,400 mg PO DAILY PRN PRN Reason: Constipation Ipratropium-Albuterol Nebulize [Duoneb 0.5 mg-3 mg/3 ml Soln] 3 ml IH RT-Q1H PRN PRN Reason: Shortness Of Breath Or Wheezing Heparin Sodium,Porcine [Heparin Sodium] 5,000 unit SQ TID@0600,1399,2099 Nystatin 100,000 Unit/ml Susp [Mycostatin Oral Susp] 5 ml PO QID@00,, Gabapentin [Neurontin] 300 mg PO TID@0600,1399,2099 Metoprolol Tartrate [Lopressor] 12.5 mg PO BID@799,2099 Amitriptyline HCl [Elavil] 25 mg PO HS@2099 Lactose-Reduced Food [Ensure Plus] 1 can PO TID traMADol HCL [Ultram] 50 mg PO BID@799,2099 #6 tablet Discontinued ALPRAZolam [Xanax] 0.25 mg PO DAILY PRN #30 tab PRN Reason: Anxiety Na Phos,M-B/Na Phos,Di-Ba [Fleet Adult] 133 ml RECTAL DAILY PRN PRN Reason: Constipation guaiFENesin [Mucinex] 600 mg PO BID Levofloxacin [Levaquin] 500 mg PO ONCE Discharge Medication List Bisacodyl [Dulcolax] 10 mg RECTAL DAILY PRN supp 07/31/17 [Rx] Ergocalciferol [Vitamin D2 (DRISDOL)] 50,000 unit PO Q72H cap 07/31/17 [Rx] Ipratropium-Albuterol Nebulize [Duoneb 0.5 mg-3 mg/3 ml Soln] 3 ml INHALATION RT -QID ampul.neb 07/31/17 [Rx] Pantoprazole [Protonix] 40 mg PO AC-BID tablet. 07/31/17 [Rx] Amitriptyline HCl [Elavil] 25 mg PO HS@209908/04/17 [History] Gabapentin [Neurontin] 300 mg PO TID@0600,1400,209908/04/17 [History] Heparin Sodium,Porcine [Heparin Sodium] 5,000 unit SQ TID@0600,1400,2099 [History] Ipratropium-Albuterol Nebulize [Duoneb 0.5 mg-3 mg/3 ml Soln] 3 ml IH RT-Q1H PRN 08/04/17 [History] Magnesium Hydroxide [Milk of Magnesia] 2,400 mg PO DAILY PRN 08/04/17 [History] Metoprolol Tartrate [Lopressor] 12.5 mg PO BID@0800,2100 08/04/17 [History] Nystatin 100,000 Unit/ml Susp [Mycostatin Oral Susp] 5 ml PO QID@00,06,, [History] Ondansetron [Zofran] 4 mg PO Q8HR PRN 08/04/17 [History] Potassium Chloride [Klor-Con 20] 40 meq PO DAILY@1700 08/04/17 [History] Lactose-Reduced Food [Ensure Plus] 1 can PO TID 08/12/17 [History] ALPRAZolam [Xanax] 0.25 mg PO BID PRN #6 tab 08/20/17 [Rx] Aspirin 81 mg PO DAILY chew 08/20/17 [Rx] Furosemide [Lasix] 60 mg PO BID@0900,1600 tab 08/20/17 [Rx] Menthol-Zinc Oxide Oint [Risamine Oint] 1 applic TOPICAL TID applic 08/20/17 [ Rx] Midodrine [ProAmatine] 10 mg PO AC-BID tab 08/20/17 [Rx] Triamcinolone 0.1% Cream [Kenalog] 1 applic TOPICAL TID applic 08/20/17 [Rx] guaiFENesin [Mucinex] 1,200 mg PO Q12HR tablet.er 08/20/17 [Rx] traMADol HCL [Ultram] 50 mg PO BID@0800,2100 #6 tablet 08/20/17 [Rx] Follow up Appointment(s)/Referral(s): Yuliana Castillo MD [STAFF PHYSICIAN] - 1 Week Kp Clark DO [Primary Care Provider] - 1-2 days Eddy Gama MD [STAFF PHYSICIAN] - 08/26/17 9:45 am Leon Bush MD [STAFF PHYSICIAN] - 1 Week Activity/Diet/Wound Care/Special Instructions: [facility]. as per ID Diet: Heart Healthy Activity: as tolerated Postvoid residuals Discharge Disposition: TRANSFER TO SNF/ECF
[2017-08-20] MEDS: POTASSIUM CHLORIDE ER 20 MEQ TAB.ER PO SCH (15:35)
[2017-08-20 15:52] VITALS: PULSE 96
--- NOTE | 2017-08-24 09:45 | CDI ---
Last Revision, April 2017 Documentation Clarification Form Date: 08/23/17 From: Bianca Harvey Jo Luong, Gasser Machine Operator between 8:30 am & 5 pm [place] Admit Date: 08/12/2017 10:31:00 AM Patient Name: Laura Jain Visit Number: [id number] Discharge Date: 08/20/17 ATTENTION: The Clinical Documentation Specialists (CDI) and [facility] Coding Staff appreciate your assistance in clarifying documentation. Please respond to the clarification below the line at the bottom and electronically sign. The CDI & [facility] Coding staff will review the response and follow-up if needed. Please note: Queries are made part of the Legal Health Record. If you have any questions, please contact the author of this message via ITS. Dr. Barbie Sparks Conflicting documentation has been found in the medical record. Dr Barakat documents" AT admission the patient did have evidence of 1 L of urine in her bladder and this was drained with a catheter, evidence of a markedly abnormal urinalysis and urine culture and blood culture are in progress. ... She likely was having sepsis from the infection of the urinary system as well as an obstructive uropathy from bladder outlet dysfunction." Blood cultures were negative. No UA or cultures. WBC: 5.3, Neutrophils: 3.7, lactic acid: none Per your documentation sepsis was not mentioned or UTI. In your opinion what is the most clinically appropriate diagnosis for this patient? Sepsis ruled in Sepsis ruled out UTI ruled in UTI ruled out Other explanation of clinical findings Unable to determine (no explanation for clinical findings) Please continue to document in your progress notes and discharge summary in order to capture severity of illness and risk of mortality. Include clinical findings that support your diagnosis. ___no Sepsis MTDD
--- NOTE | 2017-08-24 09:52 | CDI ---
Last Revision, April 2017 Documentation Clarification Form Date: 08/23/17 From: Bianca Harvey Jo Luong, Production Manufacturing Worker between 8:30 am & 5 pm [place] Admit Date: 08/12/2017 10:31:00 AM Patient Name: Laura Jain Visit Number: [id number] Discharge Date: 08/20/17 ATTENTION: The Clinical Documentation Specialists (CDI) and [facility] Coding Staff appreciate your assistance in clarifying documentation. Please respond to the clarification below the line at the bottom and electronically sign. The CDI & [facility] Coding staff will review the response and follow-up if needed. Please note: Queries are made part of the Legal Health Record. If you have any questions, please contact the author of this message via ITS. Dr. Barbie Sparks Per Dr Castillo PN on 08/20 the patient has atrial fibrillation, currently on a small dose of Lopressor which will be continued. In your professional opinion, can you please clarify the type of atrial fibrillation, if known? Chronic/Permanent Paroxysmal Persistent Other, please specify Unable to determine Please continue to document in your progress notes and discharge summary in order to capture severity of illness and risk of mortality. Include clinical findings that support your diagnosis. possible paxorysmal MTDD
== END 2017-08-20 19:10 | DRG 189 ==
LOC: EC 08:51 → 6SEL 10:31 → 4MS4W 08-18 18:27
PROVIDERS: ADMIT Hospitalist; ATTEND Hospitalist
PROC: 5A1D70Z Performance of Urinary Filtration, Intermittent, Less than 6 Hours Per Day (ICD-10-PCS; 2017-08-13)
PROC: 0W9B3ZZ Drainage of Left Pleural Cavity, Percutaneous Approach (ICD-10-PCS; principal; 2017-08-14)
DX: J96.01 Acute respiratory failure with hypoxia (principal); N17.0 Acute kidney failure with tubular necrosis; I13.2 Hypertensive heart and chronic kidney disease with heart failure and with stage 5 chronic kidney disease, or end stage renal disease; I27.23 Pulmonary hypertension due to lung diseases and hypoxia; B37.0 Candidal stomatitis; I95.9 Hypotension, unspecified; J91.8 Pleural effusion in other conditions classified elsewhere; J84.10 Pulmonary fibrosis, unspecified; I48.0 Paroxysmal atrial fibrillation; I50.33 Acute on chronic diastolic (congestive) heart failure; K50.90 Crohn's disease, unspecified, without complications; N18.5 Chronic kidney disease, stage 5; J98.11 Atelectasis; J44.9 Chronic obstructive pulmonary disease, unspecified; D63.8 Anemia in other chronic diseases classified elsewhere; F03.90 Unspecified dementia, unspecified severity, without behavioral disturbance, psychotic disturbance, mood disturbance, and anxiety; D50.9 Iron deficiency anemia, unspecified; E87.6 Hypokalemia; T50.2X5A Adverse effect of carbonic-anhydrase inhibitors, benzothiadiazides and other diuretics, initial encounter; F32.9 Major depressive disorder, single episode, unspecified; F41.9 Anxiety disorder, unspecified; M79.7 Fibromyalgia; K21.9 Gastro-esophageal reflux disease without esophagitis; M19.91 Primary osteoarthritis, unspecified site; M81.0 Age-related osteoporosis without current pathological fracture; R07.89 Other chest pain; L29.9 Pruritus, unspecified; R33.9 Retention of urine, unspecified; Z79.891 Long term (current) use of opiate analgesic; Z79.899 Other long term (current) drug therapy; Z99.2 Dependence on renal dialysis; Z90.2 Acquired absence of lung [part of]; Z90.49 Acquired absence of other specified parts of digestive tract; Z90.710 Acquired absence of both cervix and uterus; Z87.891 Personal history of nicotine dependence; Z87.19 Personal history of other diseases of the digestive system; Z88.6 Allergy status to analgesic agent; Z88.8 Allergy status to other drugs, medicaments and biological substances; Z82.49 Family history of ischemic heart disease and other diseases of the circulatory system
CPT/HCPCS: 36415; 71045; 76604; 78582; 80048; 80053; 80061; 82150; 82550; 82553; 82728; 82803; 82945; 83540; 83550; 83615; 83880; 84100; 84132; 84157; 84484; 85025; 85379; 85610; 85730; 87040; 87070; 87102; 87116; 87205; 87206; 87252; 87496; 87498; 87502; 87529; 87634; 87798; 88108; 88305; 89050; 90935; 93005; 93306; 93970; 94640; 94644; 94760; 96365; 96366; 96375; 96376; 99291

== ENCOUNTER → 2017-10-02 | Outpatient (CLI) | payer MEDICARE ==
[2017-10-02 14:57] LABS: Basophils # (A) 0.1 k/uL (0-0.2); Basophils % (A) 2 %; Eosinophils # (A) 0.5 k/uL (0-0.7); Eosinophils % (A) 7 %; HCT 36.5 % (34.0-46.0); HGB 11.9 gm/dL (11.4-16.0); Lymphocytes # (A) 1.6 k/uL (1.0-4.8); Lymphocytes % (A) 25 %; MCH 29.1 pg (25.0-35.0); MCHC 32.5 g/dL (31.0-37.0); MCV 89.5 fL (80.0-100.0); Mean Platelet Volume 6.9; Monocytes # (A) 0.3 k/uL (0-1.0); Monocytes % (A) 4 %; Neutrophils # (A) 3.9 k/uL (1.3-7.7); Neutrophils % (A) 60 %; Platelet Count 296 k/uL (150-450); RBC 4.08 m/uL (3.80-5.40); RDW 15.5 % (11.5-15.5); WBC 6.5 k/uL (3.8-10.6)
[2017-10-02 15:05] LABS: Calcium 9.5 mg/dL (8.4-10.2); Magnesium 1.8 mg/dL (1.6-2.3); Phosphorus 4.8 mg/dL (2.5-4.5); Potassium 3.3 mmol/L (3.5-5.1); Uric Acid 6.6 mg/dL (3.7-7.4)
[2017-10-02 15:07] LABS: Appearance,Urine Clear (Clear); Bilirubin,Urine Negative (Negative); Blood,Urine Negative (Negative); Color,Urine Light Yellow; Glucose,Urine (UA) Negative (Negative); Ketones,Urine Negative (Negative); Leukocyte Esterase,Urine Negative (Negative); Nitrite,Urine Negative (Negative); Protein,Urine Negative (Negative); Specific Gravity,Urine 1.004 (1.001-1.035); Urobilinogen,Urine <2.0 mg/dL (<2.0)
[2017-10-02 18:44] LABS: Parathyroid Hormone Intact 53.8 pg/mL (14.0-72.0)
[2017-10-02 19:37] LABS: Iron Saturation 26.57 (12.00-45.00)
[2017-10-02 19:47] LABS: Vitamin D 25 Hydroxy 79.9 ng/mL (30.0-100.0)
== END | disposition home or self-care (01) ==
LOC: LABWHC1 14:33
PROVIDERS: ATTEND Internal Medicine
DX: N39.0 Urinary tract infection, site not specified (principal); D64.9 Anemia, unspecified; E83.42 Hypomagnesemia; E79.0 Hyperuricemia without signs of inflammatory arthritis and tophaceous disease; N17.9 Acute kidney failure, unspecified
CPT/HCPCS: 36415; 80048; 81003; 82306; 82728; 83540; 83550; 83735; 83970; 84100; 84550; 85025